=== PATIENT | male | born 1955 | race African-American/Black ===

== ENCOUNTER 2016-04-29 09:25 | Inpatient (IN) ==
--- NOTE | 2016-04-29 09:57 | Emergency Department Note ---
Disposition Clinical Impression: SOB (shortness of breath), JETHRO (acute kidney injury), Hypoxia CHF (congestive heart failure) Qualifiers: Congestive heart failure type: unspecified congestive heart failure type Congestive heart failure chronicity: acute Qualified Code(s): I50.9 - Heart failure, unspecified Pulmonary edema Qualifiers: Chronicity: acute Qualified Code(s): J81.0 - Acute pulmonary edema Disposition: Admitted As Inpatient Condition: Good Time of Disposition: 13:36 Chest Pain HPI - General Chief Complaint: ED Chest Pain Stated Complaint: chest pain Time Seen by Provider: 04/29/16 09:47 Source: patient, EMS Limitations: no limitations Vital Signs Reviewed: Yes Nursing Notes Reviewed: Yes - History of Present Illness HPI Narrative: Patient's 60-year-old male who complains of chest pain past 2-3 days. Patient has abnormal vital signs on admission of tachycardia and low O2 sat of 78% on room air. Patient's placed on 4 L which increased patient's O2 sats at 91%. Patient has a history of diabetes, kidney disease, anemia requiring multiple blood transfusions. Patient is unable to say when his last blood transfusion was. Patient states his pain is 10 out of 10 when it is severe is intermittent. Worsened with movement moving his arms speaking, and breathing. Patient states he is not in any pain right now. EMS administered 325 of aspirin , and breathing treatment 1. Severity scale (1-10): 0 - Related Data Home Medications Medication Instructions Recorded Confirmed Acetaminophen [Tylenol] 650 mg PO Q8H PRN 04/29/16 04/29/16 Ascorbic Acid [Vitamin C] 250 mg PO TID 04/29/16 04/29/16 Aspirin 81 mg PO DAILY 04/29/16 04/29/16 Atorvastatin [Lipitor] 40 mg PO HS 04/29/16 04/29/16 Dextrose [Dex4 Glucose] 15 gm PO DAILY PRN 04/29/16 04/29/16 DiphenhydraMINE [Benadryl] 50 mg PO HS PRN 04/29/16 04/29/16 Docusate Sodium [Dok] 100 mg PO BID PRN 04/29/16 04/29/16 Duloxetine [Cymbalta] 30 mg PO DAILY 04/29/16 Ergocalciferol (VITAMIN D2) 50,000 unit PO TU 04/29/16 04/29/16 [Vitamin D2] Ferrous Sulfate [Iron] 325 mg PO TID PRN 04/29/16 04/29/16 Furosemide [Lasix] 40 mg PO DAILY 04/29/16 04/29/16 Gabapentin [Neurontin] 600 mg PO TID 04/29/16 04/29/16 Hydroxyzine HCl 50 mg PO TID PRN 04/29/16 04/29/16 Insulin ASPART [NovoLOG] 20 unit SQ TID PRN 04/29/16 04/29/16 Insulin Glargine [Lantus] 55 unit SQ BID 04/29/16 04/29/16 Lisinopril [Zestril] 10 mg PO DAILY 04/29/16 04/29/16 Mineral Oil/Petrolatum,White 1 appl TP TID PRN 04/29/16 04/29/16 [Eucerin Creme] Mirtazapine [Remeron] 30 mg PO HS 04/29/16 04/29/16 Mv-Mn/FA/Vit K/Lycop/Lut/Coq10 1 each PO DAILY 04/29/16 04/29/16 [Daily Multivitamin Capsule] NIFEdipine [Afeditab Cr] 30 mg PO DAILY PRN 04/29/16 Pantoprazole Sodium [Protonix] 40 mg PO DAILY 04/29/16 04/29/16 Polyvinyl Alcohol [Artificial 1 drop BOTH EYES QID PRN 04/29/16 04/29/16 Tears] Sertraline [Zoloft] 200 mg PO DAILY 04/29/16 04/29/16 Simethicone [Gas-X] 80 mg PO QID 04/29/16 04/29/16 Sucralfate [Carafate] 1 gm PO QIDAC 04/29/16 04/29/16 Topiramate [Topamax] 50 mg PO HS PRN 04/29/16 04/29/16 Trazodone HCl 100 mg PO HS PRN 04/29/16 04/29/16 Urea [Remeven] 1 appl TP DAILY 04/29/16 04/29/16 Allergies Allergy/AdvReac Type Severity Reaction Status Date / Time No Known Allergies Allergy Verified 04/29/16 12:48 Review of Systems: Patient admits to unintentional voiding of bowels fevers, chills, anorexia, dry cough since symptoms started. All systems ED: reviewed and negative except as stated. Constitutional: Reports: fever, chills Eyes: Denies: eye pain, eye discharge ENT ED: Denies: ear pain, throat pain, congestion Cardiovascular: Reports: chest pain. Denies: palpitations, syncope Respiratory: Reports: cough, dyspnea. Denies: wheezes, sputum production Gastrointestinal: Reports: nausea. Denies: abdominal pain, vomiting Genitourinary: Denies: urgency, dysuria Musculoskeletal: Denies: back pain, neck pain Integumentary: Denies: rash, abrasion Neurological: Denies: headache, weakness Psychiatric: Denies: anxiety, visual hallucinations Endocrine: Denies: fatigue, heat or cold intolerance Hematological/Lymphatic: Denies: easy bleeding, easy bruising Allergic/Immunologic: Denies: facial swelling, urticaria Chest Pain PMH - Past Medical History Medical history: Reports: diabetes, hyperlipidemia, hypertension, renal disease , other - Social History Smoking Status: Never smoker Alcohol use: Reports: none Drug use: Reports: none Physical Exam Vital Signs Temperature 99.5 F 04/29/16 09:27 Pulse Rate 99 04/29/16 09:27 Respiratory Rate 20 04/29/16 09:27 Blood Pressure 157/88 04/29/16 09:27 O2 Sat by Pulse Oximetry 78 L 04/29/16 09:27 Temperature 99.5 F 04/29/16 09:27 Pulse Rate 99 04/29/16 09:27 Respiratory Rate 20 04/29/16 09:27 Blood Pressure 157/88 04/29/16 09:27 O2 Sat by Pulse Oximetry 92 L 04/29/16 09:33 Oxygen Delivery Oxygen Delivery Room Air -General Appearance: Patient is a 60-year-old male who weighs just over 500 pounds lying in bed alert and oriented 3 has increased work of breathing but does not appear toxic -Neurological exam: Cranial nerves II-12 intact, no focal deficits observed, - Head Head exam: atraumatic, normocephalic, normal inspection - Eye Eye exam: Present: normal appearance, PERRL, EOMI, negative for scleral icterus negative for conjunctival pallor - ENT ENT exam: normal exam, normal oropharynx, mucous membranes moist - Neck Neck exam: Present: normal inspection, full ROM, trachea midline, negative JVD - Chest Chest inspection: Present: Patient has bilateral equal rise and fall of chest wall. Non-tender to palpation. - Respiratory Respiratory exam: Clear to auscultation bilaterally without wheezes rales or rhonchi Cardiovascular Cardiovascular exam: Present: irregular rate, normal rhythm, normal heart sounds , without murmurs rubs or gallops. - Abdominal Exam Abdominal exam: Present: soft, nondistended, Non-Tender light and deep palpation in all quadrants. Bowel sounds normoactive throughout all 4 quadrants. Negative for hyper or hyperresonance. - Extremities Exam Extremities exam: Present: normal inspection, full ROM, - Back Exam Back exam: Present: normal inspection, full ROM. Absent: tenderness, CVA tenderness (R), CVA tenderness (L) - Psychiatric Psychiatric exam: Present: normal affect, normal mood - Skin Skin exam: Present: warm, dry, intact, normal color - General Limitations: no limitations General appearance: alert, in no apparent distress Course Course Narrative: Patient seen and examined. Cardiac workup initiated. D-dimer ordered. DuoNeb ordered. - Reevaluation(s) Reevaluation #1: Patient states that he feels better on oxygen versus having the breathing treatment. Patient states she has no chest pain at this time. Patient's d- dimer was elevated and ordered VQ scan Time: 10:42 Reevaluation #2: Patient was returned from V/Q secondary to exceeding the weight limit for V/Q scanner. Time: 11:48 - Consultations Consultation #1: Dr. Lambert has accepted for admission Time: 13:25 Vital Signs Temperature 99.5 F 04/29/16 09:27 Pulse Rate 99 04/29/16 09:27 Respiratory Rate 20 04/29/16 09:27 Blood Pressure 157/88 04/29/16 09:27 O2 Sat by Pulse Oximetry 78 L 04/29/16 09:27 Temperature 98.2 F 05/01/16 07:00 Pulse Rate 73 05/01/16 07:00 Respiratory Rate 20 05/01/16 10:53 Blood Pressure 168/75 05/01/16 07:00 O2 Sat by Pulse Oximetry 96 05/01/16 10:53 Oxygen Delivery Oxygen Delivery Nasal Cannula Chest Pain - [facility] Narrative Medical decision making narrative: Mr. Mccoy is an morbidly obese gentleman who is complaining of chest pain, shortness of breath, and unable to maintain O2 saturations above 90 without O2 supplementation. Patient is transferred over from the [facility] for further workup. Patient conditions were some further PE, pneumonia, ACS, CHF. Patient's chest x -ray showed bilateral pulmonary effusions. No consolidation of lower lung malagon. Patient's d-dimer was 1474. Patient is unable to have CTA chest secondary to acute kidney injury with a creatinine of 2.49. VQ scan was ordered. VQ scan was unable to be obtained secondary to patient's weight which exceeded upper limits of the weight capacity for VQ scan. Patient was administered aspirin, patient was started on heparin. Patient also anemic at 7.9 which may be exacerbated CHF and worsening shortness of breath. Patient also has a WBC of 11.2 which is very mild. Patient received DuoNeb which did not offer any benefit. Patient states that oxybutynin supplementation was more beneficial. Patient remained on 4 L via nasal cannula. Patient started on Lasix 80 mg for diuresis. Patient is admitted for further workup. Dr. Lambert accepted for admission. - Medical Records Medical records reviewed: Yes I reviewed the patient's medical records. - Lab Data Lab results reviewed: Yes I reviewed the patient's lab results. Lab results narrative: Short CBC 04/29/16 04/29/16 Range/Units 17:30 09:49 WBC 11.2 H 12.7 H (4.3-11.1) K/mcL Hgb 7.9 L 7.8 L (12.9-16.9) g/dL Hct 26.8 L 26.7 L (37.5-50.1) % Plt Count 204 205 (140-400) K/mcL Neutrophils # 9.6 H (1.6-8.9) K/mcL BMP 04/29/16 Range/Units 09:49 Sodium 139 (136-145) mEq/L Potassium 4.4 (3.5-4.5) mEq/L Chloride 104 (98-109) mEq/L Carbon Dioxide 25 (19-29) mEq/L BUN 46 H (8-26) mg/dL Creatinine 2.49 H (0.72-1.25) mg/dL Glucose 297 H (70-99) mg/dL Calcium 8.5 L (8.6-10.8) mg/dL Cardiac Enzymes 04/29/16 04/29/16 Range/Units 15:57 09:49 Troponin I 0.35 H* 0.12 H* (0-0.03) ng/mL Urine 04/29/16 Range/Units 17:22 Urine Color Yellow (Yellow) Urine Clarity Cloudy A (Clear) Urine pH 8.5 H (5.0-8.0) pH Units Ur Specific Yoder 1.020 (1.010-1.025) Urine Protein 100 H (Neg-Trace) mg/dL Urine Glucose (UA) Normal (Normal) mg/dL Result diagrams: 05/01/16 04:28 05/01/16 04:28 Lab Results 04/29/16 04/29/16 04/29/16 Range/Units 09:49 09:49 09:49 WBC 12.7 H (4.3-11.1) K/mcL RBC 3.24 L (4.19-5.50) M/mcL Hgb 7.8 L (12.9-16.9) g/dL Hct 26.7 L (37.5-50.1) % MCV 82.4 L (83.0-100.0) fL MCH 24.1 L (28.0-33.3) pg MCHC 29.2 L (31.6-35.5) g/dL RDW 15.7 H (11.5-14.5) % Plt Count 205 (140-400) K/mcL MPV 9.2 L (9.4-12.4) fL Immature Gran % 0.6 (0-4) % Seg Neutrophils % 75.6 % Lymphocytes % 16.3 % Monocytes % 7.2 % Eosinophils % 0.2 % Basophils % 0.1 % Neutrophils # 9.6 H (1.6-8.9) K/mcL Lymphocytes # 2.1 (0.6-4.6) K/mcL Monocytes # 0.9 (0.0-1.3) K/mcL Eosinophils # 0.0 (0.0-0.6) K/mcL Basophils # 0.0 (0.0-0.2) K/mcL Nucleated RBCs/100 WBC 0.3 H (0) /100 WBC D-Dimer (0-500) ng/mLFEU Sodium 139 (136-145) mEq/L Potassium 4.4 (3.5-4.5) mEq/L Chloride 104 (98-109) mEq/L Carbon Dioxide 25 (19-29) mEq/L BUN 46 H (8-26) mg/dL Creatinine 2.49 H (0.72-1.25) mg/dL Est GFR ( Amer) 32 L (> 60) Est GFR (Non-Af Amer) 27 L (> 60) BUN/Creatinine Ratio 18 (6-26) Glucose 297 H (70-99) mg/dL Calculated Osmolality 311 H (280-300) Lactic Acid (0.5-2.2) mmol/L Calcium 8.5 L (8.6-10.8) mg/dL Troponin I 0.12 H* (0-0.03) ng/mL C-Reactive Protein 177 H (Less than 5) mg/L B-Natriuretic Peptide (0-100) pg/mL 04/29/16 04/29/16 04/29/16 Range/Units 09:49 09:49 10:58 WBC (4.3-11.1) K/mcL RBC (4.19-5.50) M/mcL Hgb (12.9-16.9) g/dL Hct (37.5-50.1) % MCV (83.0-100.0) fL MCH (28.0-33.3) pg MCHC (31.6-35.5) g/dL RDW (11.5-14.5) % Plt Count (140-400) K/mcL MPV (9.4-12.4) fL Immature Gran % (0-4) % Seg Neutrophils % % Lymphocytes % % Monocytes % % Eosinophils % % Basophils % % Neutrophils # (1.6-8.9) K/mcL Lymphocytes # (0.6-4.6) K/mcL Monocytes # (0.0-1.3) K/mcL Eosinophils # (0.0-0.6) K/mcL Basophils # (0.0-0.2) K/mcL Nucleated RBCs/100 WBC (0) /100 WBC D-Dimer 1474 H (0-500) ng/mLFEU Sodium (136-145) mEq/L Potassium (3.5-4.5) mEq/L Chloride (98-109) mEq/L Carbon Dioxide (19-29) mEq/L BUN (8-26) mg/dL Creatinine (0.72-1.25) mg/dL Est GFR ( Amer) (> 60) Est GFR (Non-Af Amer) (> 60) BUN/Creatinine Ratio (6-26) Glucose (70-99) mg/dL Calculated Osmolality (280-300) Lactic Acid 0.9 (0.5-2.2) mmol/L Calcium (8.6-10.8) mg/dL Troponin I (0-0.03) ng/mL C-Reactive Protein (Less than 5) mg/L B-Natriuretic Peptide 302 H (0-100) pg/mL - Radiology Data Radiology results reviewed: Yes I reviewed the patient's radiology results. Chest X-Ray 04/29/16 09:33 IMPRESSION: Findings compatible with bilateral pulmonary edema. D/ / Robby Shrestha MD / Robby Shrestha MD Interpreting Provider: Robby Shrestha MD - EKG Data EKG attestation: Yes I reviewed and interpreted this EKG. EKG results narrative: EKG taken 1609 2016 at 0939 hours shows normal sinus rhythm and ventricular rate of [address] depression in V4. Heart Score - Score History: Moderately Suspicious EKG: Non Specific repolarisation Disturbance Age: 45-65 Risk Factors: 1-2 risk factors Troponin: Greater than 3x normal limit HEART Score Total: 6 Attestation Statement - Attestation Attestation: For this encounter, I have reviewed the resident, S[employer]IOR [employer], or PA documentation, treatment plan, and medical decision making; and I have had face to face time with this patient. 60-year-old male brought in by EMS for shortness of breath. Patient states symptoms have been increasing for the past couple days. Patient lives a sedentary lifestyle. He has been evaluated for blood clots multiple times in the past. Patient states bilateral lower extremities are more edematous over the past couple days. Patient has an elevated d-dimer and chest x-ray consistent with congestive heart failure. He has a creatinine that is elevated but is too large for our V/Q scanner. We are unable to rule out PE at this time. Patient has an elevated troponin and was started on heparin for non- STEMI. No history of recent GI bleeding. He is maintaining his saturations however I am concerned about congestive heart failure due to the mildly elevated BNP. These concerns were relayed to the hospitalist, Dr. Lambert, who agreed to accept the patient onto her care.
[2016-04-29 10:03] LABS: Basophils % 0.1 %; Eosinophils % 0.2 %; Hematocrit 26.7 % (37.5-50.1); Hemoglobin 7.8 g/dL (12.9-16.9); Immature Granulocytes % 0.6 % (0-4); Lymphocytes # 2.1 K/mcL (0.6-4.6); Lymphocytes % 16.3 %; Mean Corpuscular HGB Conc 29.2 g/dL (31.6-35.5); Mean Corpuscular Hemoglobin 24.1 pg (28.0-33.3); Mean Corpuscular Volume 82.4 fL (83.0-100.0); Mean Platelet Volume 9.2 fL (9.4-12.4); Monocytes # 0.9 K/mcL (0.0-1.3); Monocytes % 7.2 %; Neutrophils # 9.6 K/mcL (1.6-8.9); Nucleated Red Blood Cells 0.3 /100 WBC (0); Platelet Count 205 K/mcL (140-400); Red Blood Count 3.24 M/mcL (4.19-5.50); Red Cell Distribution Width 15.7 % (11.5-14.5); Segmented Neutrophils % 75.6 %
[2016-04-29] MEDS ORDERED: Ipratropium/Albuterol Neb 3 ML IH ONE (10:05)
[2016-04-29 10:33] LABS: Calcium 8.5 mg/dL (8.6-10.8); Potassium 4.4 mEq/L (3.5-4.5)
[2016-04-29] MEDS ORDERED: Furosemide 40 MG/4 ML VIAL IVP ONE (13:35)
[2016-04-29] MEDS ORDERED: *HR* Morphine 2 MG/ML SYRINGE IVP PRN (14:24)
[2016-04-29] MEDS ORDERED: Naloxone 0.4 MG/ML INJ IVP PRN (14:24)
[2016-04-29] MEDS ORDERED: D5% in Water 1,000 ML IV PRN (15:03)
[2016-04-29] MEDS ORDERED: Dextrose Gel 15 GM PO PRN ×2 (15:03)
[2016-04-29] MEDS ORDERED: *HR* Dextrose 50 % in Water (Syg) 50 ML SYRINGE IVP PRN (15:03)
[2016-04-29] MEDS ORDERED: Albuterol 2.5 MG/3 ML NEBULIZER IH PRN (15:06)
--- NOTE | 2016-04-29 15:18 | Cardiology Consult Note ---
Date of Encounter: 04/29/16 Time of Encounter: 15:15 Assessment and Plan (1) Elevated troponin I measurement Current Visit: Yes Status: Acute Per Cardiology: Initial troponin 0.12. Patient with anemia with hemoglobin and hematocrit at 7 and 26, elevated d-dimer 1400s, and creatinine of 2.49 with GFR 27. Patient reports history of anemia and CKD. BNP only noted in the 300's. Baseline numbers unknown. Patient again reports multiple transfusions throughout various hospitals. At this point suspect type II demand ischemia due to multiple medical problems. We'll continue to cycle troponins. Echocardiogram is pending. At this time if patient were to warrant further ischemic evaluation in terms of stress test or left heart catheterization, based on weight most likely would not be able to be completed at this facility. Will discuss and review Dr. Lloyd. (2) JETHRO (acute kidney injury) Current Visit: Yes Status: Acute Per Cardiology: Creatinine 2.49. Again unknown baseline. Reports history of CK D. Consider nephrology consult as well. (3) Elevated d-dimer Current Visit: Yes Status: Acute Per Cardiology: D-dimer noted to be in the 1400s. Consider PE evaluation if able. (4) Morbid obesity Current Visit: Yes Status: Acute Per Cardiology: Patient reports his weight is usually about 500 pounds. Qualifiers: Qualified Code(s): E66.01 - Morbid (severe) obesity due to excess calories (5) Anemia Current Visit: Yes Status: Acute Per Cardiology: Unspecified type of anemia. Again reports multiple hospitalizations at various locations with multiple blood transfusions. Consider hematology consult. Qualifiers: Anemia type: unspecified type Qualified Code(s): D64.9 - Anemia, unspecified Discussion w patient/family: The assessment and plan as outlined above was discussed with the patient who expressed understanding and agreement. All questions were answered. Thank you for involving us in the care of your patient. Please call with any questions. History of Present Illness Consult date: 04/29/16 Requesting physician: Chralie Lambert Consult reason: CP, Elevated Troponin Chief complaint: SOB History of present illness: Mr. Mccoy is a 60 year old -[place] male with a relevant past medical history of apparent CKD, anemia and patient reports multiple blood transfusions at various different hospitals ever few months, hypertension, hyperlipidemia, diabetes mellitus type 2, morbid obesity. Patient denies any history of CVA or coronary artery disease. Patient reports progressively worsening dyspnea on exertion and shortness of breath at rest. He reports able to walk short distances with a walker. Patient also reports intermittent chest tightness and discomfort at rest and with exertion also increase in frequency. Patient indicates came from the [facility] and that is where he is currently staying. He reports recent hospitalization in [facility] and required blood transfusion. He currently denies any active bleeding or blood loss. Denies currently receiving dialysis. Past Med Surg Social Fam HX - Past Medical History Attestation: Yes The following information was validated with the patient. Source: patient, old records reviewed, obtained from family Medical history: diabetes, hyperlipidemia, hypertension, renal disease, other - Social History Smoking Status: Never smoker Alcohol use: none Drug use: none Medications and Allergies Acetaminophen [Tylenol] 650 mg PO Q8H PRN 04/29/16 [History] Ascorbic Acid [Vitamin C] 250 mg PO TID 04/29/16 [History] Aspirin 81 mg PO DAILY 04/29/16 [History] Atorvastatin [Lipitor] 40 mg PO HS 04/29/16 [History] Dextrose [Dex4 Glucose] 15 gm PO DAILY PRN 04/29/16 [History] DiphenhydraMINE [Benadryl] 50 mg PO HS PRN 04/29/16 [History] Docusate Sodium [Dok] 100 mg PO BID PRN 04/29/16 [History] Duloxetine [Cymbalta] 30 mg PO DAILY 04/29/16 [History] Ergocalciferol (VITAMIN D2) [Vitamin D2] 50,000 unit PO TU 04/29/16 [History] Ferrous Sulfate [Iron] 325 mg PO TID PRN 04/29/16 [History] Furosemide [Lasix] 40 mg PO DAILY 04/29/16 [History] Gabapentin [Neurontin] 600 mg PO TID 04/29/16 [History] Gabapentin [Neurontin] 800 mg PO Q8H PRN 04/29/16 [History] Hydroxyzine HCl 50 mg PO TID PRN 04/29/16 [History] Insulin ASPART [NovoLOG] 20 unit SQ TID PRN 04/29/16 [History] Insulin Glargine [Lantus] 55 unit SQ BID 04/29/16 [History] Lisinopril [Zestril] 10 mg PO DAILY 04/29/16 [History] Mineral Oil/Petrolatum,White [Eucerin Creme] 1 appl TP TID PRN 04/29/16 [History ] Mirtazapine [Remeron] 30 mg PO HS 04/29/16 [History] Mv-Mn/FA/Vit K/Lycop/Lut/Coq10 [Daily Multivitamin Capsule] 1 each PO DAILY [History] NIFEdipine [Afeditab Cr] 30 mg PO DAILY PRN 04/29/16 [History] Pantoprazole Sodium [Protonix] 40 mg PO DAILY 04/29/16 [History] Polyvinyl Alcohol [Artificial Tears] 1 drop BOTH EYES QID PRN 04/29/16 [History] Sertraline [Zoloft] 200 mg PO DAILY 04/29/16 [History] Simethicone [Gas-X] 80 mg PO QID 04/29/16 [History] Sucralfate [Carafate] 1 gm PO QIDAC 04/29/16 [History] Topiramate [Topamax] 50 mg PO HS PRN 04/29/16 [History] Trazodone HCl 100 mg PO HS PRN 04/29/16 [History] Urea [Remeven] 1 appl TP DAILY 04/29/16 [History] Allergies No Known Allergies Allergy (Verified 04/29/16 12:48) All Systems Review: A 10-system review of systems was performed and is negative for pertinent findings except as documented above in the HPI. - Constitutional Constitutional: fatigue - Cardiovascular Cardiovascular: as per HPI, chest pain at rest, chest pain with exertion, dyspnea at rest, dyspnea on exertion, leg edema Physical Examination Vital Signs, Last 4 Hours Resp BP 04/29/16 14:22 20 140/104 General: Conversant, Other (Unkempt, smell of urine) HEENT: Atraumatic, Normocephaly, Mucus Membranes Moist Neck: Normal carotid pulses Cardiac: Reg Rate and Rhythm, Normal S1 and S2, No Murmur Lungs: Other (Clear anteriorly, conversational dyspnea noted) Neuro: Alert and responsive, No focal deficits noted Abdomen: Soft, Non-Tender, Other (Morbidly obese) Skin: No rashes noted on visualized skin Musculoskeletal: No Chest Wall Tenderness Extremities: Other (Generalized +2-3 nonpitting edema to bilateral lower extremities) Results 04/29/16 09:49 04/29/16 09:49 Laboratory Tests 04/29/16 04/29/16 04/29/16 09:49 09:49 09:49 Hgb 7.8 L Hct 26.7 L D-Dimer Creatinine 2.49 H Est GFR (Non-Af Amer) 27 L Troponin I 0.12 H* B-Natriuretic Peptide 04/29/16 04/29/16 09:49 09:49 Hgb Hct D-Dimer 1474 H Creatinine Est GFR (Non-Af Amer) Troponin I B-Natriuretic Peptide 302 H ITS Impressions Chest X-Ray 04/29/16 09:33 IMPRESSION: Findings compatible with bilateral pulmonary edema. D/ / Robby Shrestha MD / Robby Shrestha MD Interpreting Provider: Robby Shrestha MD Intake & Output 04/26/16 04/27/16 04/28/16 04/29/16 23:59 23:59 23:59 23:59 Weight 237.852 kg Active Medications Acetaminophen (Tylenol) 650 mg PO Q6HR PRN PRN Reason: Mild Pain (1-3) Stop: 10/29/16 14:25 Albuterol Sulfate (Proventil Neb) 2.5 mg IH Q2H PRN PRN Reason: Shortness Of Breath/Wheezing Stop: 10/29/16 15:07 Albuterol/Ipratropium (Duoneb) 3 ml IH QIDR KHANH Stop: 10/29/16 17:01 Aspirin (Aspirin) 81 mg PO DAILY KHANH Stop: 10/30/16 09:01 Atorvastatin Calcium (Lipitor) 40 mg PO HS KHANH Stop: 10/29/16 21:01 Dextrose/Water (Dextrose 50% (Syg)) 25 ml IVP AD PRN PRN Reason: Hypoglycemia Stop: 10/29/16 15:04 Docusate Sodium (Colace) 100 mg PO BID PRN; Protocol PRN Reason: Constipation Stop: 10/29/16 14:55 Ergocalciferol (Drisdol (50,000 Unit)) 50,000 unit PO TU KHANH Stop: 10/30/16 14:55 Furosemide (Lasix) 40 mg IVP BIDDIURETIC [facility] Stop: 10/30/16 09:01 Glucagon (Glucagen) 1 mg IM ONCE PRN PRN Reason: Hypoglycemia Stop: 10/29/16 15:04 Glucose (Gluctose) 15 gm PO ONCE PRN PRN Reason: Hypoglycemia Stop: 10/29/16 15:04 Glucose (Gluctose) 30 gm PO ONCE PRN PRN Reason: Hypoglycemia Stop: 10/29/16 15:04 Heparin Sodium (Porcine) (Heparin) 5,000 unit SQ Q12HR KHANH Stop: 10/29/16 18:01 Hydralazine HCl (Hydralazine) 10 mg IVP Q6HR PRN PRN Reason: Hypertension Stop: 10/29/16 14:47 Dextrose (Dextrose 5%) 1,000 mls @ 100 mls/hr IV CONT PRN PRN Reason: HYPOGLYCEMIA Stop: 10/29/16 15:04 Insulin Detemir (Levemir) 60 unit 0.25 unit/kg (60 unit) SQ HS [facility] Stop: 10/29/16 21:01 Insulin Human Lispro (Humalog) 20 units 0.08 units/kg (20 units) SQ TIDWM [facility] Stop: 10/29/16 17:01 Insulin Human Lispro (Humalog) 0 units SQ HS [facility] PRN Reason: Protocol Stop: 10/29/16 21:01 Insulin Human Lispro (Humalog) 0 units SQ TIDAC [facility] PRN Reason: Protocol Stop: 10/29/16 16:31 Isosorbide Mononitrate (Imdur) 30 mg PO DAILY [facility] Stop: 10/29/16 14:46 Lisinopril (Zestril) 20 mg PO DAILY [facility] PRN Reason: Protocol Stop: 10/30/16 09:01 Metoprolol Tartrate (Lopressor) 25 mg PO BID [facility] Stop: 10/30/16 09:01 Morphine Sulfate (Morphine Sulfate) 2 mg IVP Q4HR PRN PRN Reason: Severe Pain (7-10) Stop: 10/29/16 14:25 Naloxone HCl (Narcan) 0.4 mg IVP Q2MIN PRN PRN Reason: Opioid Reversal Stop: 10/29/16 14:25 Non-Formulary Medication (Ascorbic Acid [Vitamin C]) 250 mg PO TID [facility] Stop: 10/29/16 15:01 Non-Formulary Medication (Mirtazapine [Remeron]) 30 mg PO HS KHANH Stop: 10/29/16 21:01 Sertraline HCl (Zoloft) 200 mg PO DAILY KHANH Stop: 10/30/16 09:01 Sucralfate (Carafate) 1 gm PO QIDAC KHANH Stop: 10/29/16 16:31 - Imaging and Cardiology Chest Xray: report reviewed Echo: pending - EKG Interpretation EKG results cardiology: other (was unavailable for review) Consult Discharge Plan - Plan [facility]errals: [facility]Primary Care Provider[facility] -
--- NOTE | 2016-04-29 15:26 | Internal Med History&Physical ---
Date of Encounter: 04/29/16 Time of Encounter: 13:00 Assessment and Plan (1) Acute respiratory failure with hypoxia Current visit: Yes Status: Acute 1 patient presented to the ER with S PO2 78% on room air, with tachycardia. They are multiple contributing factors including possible emboli CHF pickwickian syndrome. Patient unable to have a CTA due to chronic kidney disease is unable to complete VQ scan due to size. We will obtain bilateral lower extremity Dopplers to rule out DVT as well as obtain echo to look for possible right-sided strain. [address] on BiPAP titrated to maintain SPO2 greater than 92% 3 we will give Lasix and nitrates to help with pulmonary edema (2) CHF exacerbation Current visit: Yes Status: Acute 1 patient denies any past cardiac history he is followed by physicians at the [facility]. We will obtain cardiac echo to evaluate EF 2 we will give Lasix as well as Isordil by we will closely monitor creatinine during Lasix use 3) monitoring of intake and output we will place Cuevas to monitor output 4 daily weights [address] patient on BiPAP and titrated to maintain SPO2 greater than 92% 7 cardiology consulted (3) Diabetes mellitus type 2 in obese Current visit: Yes Status: Acute 1 patient is type II diabetic on insulin. We will continue with Accu-Cheks before meals at bedtime we will continue with basal nutritional and correctional insulin as needed. Goal is to maintain postprandial less than 180 2 diabetic diet (4) CKD (chronic kidney disease) stage 3, GFR 30-59 ml/min Current visit: Yes Status: Acute 1 patient's creatinine is 2.49 and short baseline patient is followed by physicians at the [facility]. We will continue to monitor creatinine 2 patient is receiving Lasix for CHF exacerbation we will monitor creatinine closely while receiving increased doses 3 we will avoid nephrotoxins and NSAIDs. renal dose all antibiotics 4 monitor intake and output daily weight 5 renal diet (5) Anemia Current visit: Yes Status: Acute 1 suspect this is related to chronic disease, there is no active bleeding at this time presently hemoglobin 7.8 we will monitor and transfuse as needed. 2 anemia workup 3 stool for occult blood Qualifiers: Anemia type: unspecified type Qualified Code(s): D64.9 - Anemia, unspecified (6) Elevated d-dimer Current visit: Yes Status: Acute 1 patient's d-dimer is 1474. Patient unable to complete CTA due to chronic kidney disease unable to complete PQ due to size. We will obtain ultrasound of lower extremities to rule out DVT. We will recheck d-dimer and a.m. (7) DVT prophylaxis Current visit: Yes Status: Acute heparin subcutaneously (8) Hypertensive urgency Current visit: Yes Status: Acute 1 systolic 180 diastolic window for. Suspect related to patient not taking medication today. We will give IV Lasix will increase lisinopril 20 mg add isosorbide 30 help was diuresed we will initiate metoprolol 25 mg twice a day tomorrow. We will give hydralazine 10 mg IV when necessary for blood pressure greater than 180. Goal is to maintain blood pressure less than 160 2 low sodium diet (9) Elevated troponin I measurement Current visit: Yes Status: Acute 1 patient's first troponin was 0.12.Suspect this is related to demand ischemia We will continue to cycle cardiac troponins. If continue to be elevated. Initiate heparin drip 2we will obtain echo 3will consult cardiology 4 nitrates, aspirin, continue statin oxygen as needed to maintain SPO2. 92% 5 continuous cardiac monitoring Internal Medicine - H&P: HPI Chief complaint: SOB Admitted From: Home Plans for Post Hospital Care: Home History of present illness: Mr. Mccoy is a 60 year old male with a past medical history of diabetes hyperlipidemia hypertension CK D stage III, anemia according to the patient he has been experiencing shortness of breath on exertion as well as intermittent chest pain for the past 2-3 days. The patient does not elaborate on the pain he just states it is pain and that it comes and goes 10 over 10 when it severe resolves on its own. He states he is more concerned about the shortness of breath he is unable to do his ADLs and a he has been in bed or chair most of the day. He was brought to the emergency room for evaluation nipple presentation the patient was tachycardic with a low oxygen saturation of 78% on room air. Patient was placed on 4 L his oxygen saturation increased to 91%. First set cardiac enzymes reveal troponin of 0.12 d-dimer of 1474 BNP 302. Chest x-ray did reveal bilateral pulmonary edema his oxygen saturation did improve after applying oxygen up to 97% due to the patient's kidney disease he is unable to have a CTA and because of his size he is unable to complete a VQ scan. The patient was given an aspirin and has been admitted for further workup and evaluation. Upon assessment patient is morbidly obese poor hygiene he is asleep and is noted to have snoring and apneic respirators. He arouses to verbal stimuli appropriately follows commands he denies any chest pain or shortness of breath at this time. He states he normally goes to the [facility] for medical treatment and that he sees a kidney doctor there. He denies any past cardiac disease , CHANELL COPD or oxygen use at home. His EKG is normal sinus with nonspecific ST changes in lead 3. He is noted to have some hypertension with diastolic 100 and systolic 180. I reviewed this case with Dr. Lambert who agrees with the plan Past Med Surg Social Fam HX - Past Medical History Medical history: diabetes, hyperlipidemia, hypertension, renal disease, other - Social History Smoking Status: Never smoker Alcohol use: none Drug use: none Internal Medicine - H&P: Meds Acetaminophen [Tylenol] 650 mg PO Q8H PRN 04/29/16 [History] Ascorbic Acid [Vitamin C] 250 mg PO TID 04/29/16 [History] Aspirin 81 mg PO DAILY 04/29/16 [History] Atorvastatin [Lipitor] 40 mg PO HS 04/29/16 [History] Dextrose [Dex4 Glucose] 15 gm PO DAILY PRN 04/29/16 [History] DiphenhydraMINE [Benadryl] 50 mg PO PRN 04/29/16 [History] Docusate Sodium [Dok] 100 mg PO BID PRN 04/29/16 [History] Duloxetine [Cymbalta] 30 mg PO DAILY 04/29/16 [History] Ergocalciferol (VITAMIN D2) [Vitamin D2] 50,000 unit PO TU 04/29/16 [History] Ferrous Sulfate [Iron] 325 mg PO TID PRN 04/29/16 [History] Furosemide [Lasix] 40 mg PO DAILY 04/29/16 [History] Gabapentin [Neurontin] 600 mg PO TID 04/29/16 [History] Gabapentin [Neurontin] 800 mg PO Q8H PRN 04/29/16 [History] Hydroxyzine HCl 50 mg PO TID PRN 04/29/16 [History] Insulin ASPART [NovoLOG] 20 unit SQ TID PRN 04/29/16 [History] Insulin Glargine [Lantus] 55 unit SQ BID 04/29/16 [History] Lisinopril [Zestril] 10 mg PO DAILY 04/29/16 [History] Mineral Oil/Petrolatum,White [Eucerin Creme] 1 appl TP TID PRN 04/29/16 [History ] Mirtazapine [Remeron] 30 mg PO HS 04/29/16 [History] Mv-Mn/FA/Vit K/Lycop/Lut/Coq10 [Daily Multivitamin Capsule] 1 each PO DAILY [History] NIFEdipine [Afeditab Cr] 30 mg PO DAILY PRN 04/29/16 [History] Pantoprazole Sodium [Protonix] 40 mg PO DAILY 04/29/16 [History] Polyvinyl Alcohol [Artificial Tears] 1 drop BOTH EYES QID PRN 04/29/16 [History] Sertraline [Zoloft] 200 mg PO DAILY 04/29/16 [History] Simethicone [Gas-X] 80 mg PO QID 04/29/16 [History] Sucralfate [Carafate] 1 gm PO QIDAC 04/29/16 [History] Topiramate [Topamax] 50 mg PO HS PRN 04/29/16 [History] Trazodone HCl 100 mg PO HS PRN 04/29/16 [History] Urea [Remeven] 1 appl TP DAILY 04/29/16 [History] Allergies No Known Allergies Allergy (Verified 04/29/16 12:48) All Systems PM: A 10-system review of systems was performed and is negative for pertinent findings except as documented above in the HPI. - Constitutional Constitutional: fatigue, malaise - Cardiovascular Cardiovascular ROS IM: chest pain, dyspnea on exertion - Respiratory Respiratory: cough, dyspnea on exertion, snoring - Gastrointestinal Gastrointestinal: no abdominal pain, no diarrhea, no hematemesis, no hematochezia, no melena, no nausea, no vomiting - Musculoskeletal Musculoskeletal ROS IM: no numbness, no tingling - Neurological Neurological ROS: no confusion, no convulsions, no focal weakness, no numbness, no tingling, no tremor(s) - Constitutional Vitals: Temp Pulse Resp BP Pulse Ox 99.5 F 86 20 140/104 94 L 04/29/16 09:27 04/29/16 12:56 04/29/16 14:22 04/29/16 14:22 04/29/16 12:56 General appearance: Present: A&O X 3, morbidly obese, answers questions appropriately - Head Head exam: Present: atraumatic, normocephalic - Neck Neck exam general surgery: Present: supple, trachea midline. Absent: lymphadenopathy - Respiratory Respiratory exam: Present: decreased breath sounds, wheezes. Absent: accessory muscle use, rales, rhonchi Additional comments: Patient has decreased lung sounds throughout malagon with faint expiratory wheeze - Cardiovascular Cardiovascular exam: Present: RRR, +S1, +S2. Absent: diastolic murmur, gallop, rubs, systolic murmur - GI/Abdominal GI/Abdominal exam: Present: normal bowel sounds, soft, no peritoneal signs. Absent: distended, tenderness - Extremities Exam Extremities exam: Present: pedal edema, warm, radial pulses palpable and symetrical. Absent: calf tenderness, cyanotic Additional comments: +2 pitting edema up to knees bilaterally - Neurological Exam Neurological exam: Present: CN II-XII intact, oriented X3, no focal deficits. Absent: pronater drift, facial droop, speech deficit - Skin Skin exam: Present: dry, intact Internal Med - H&P Results - Labs CBC & Chem 7: 04/29/16 09:49 04/29/16 09:49 - EKG Data EKG shows normal: sinus rhythm Rate: normal - EKG Data Prior EKG available for review: no Interpretation IM: normal EKG EKG comments: 04/29/16 15:43 I reviewed EKG with , there are no ischemic changes noted at this time - Diagnostic Studies Chest x-ray Additional comments: Per radiology read indicative of pulmonary edema bilaterally
--- NOTE | 2016-04-29 15:57 | Event Note ---
Date of Encounter: 04/29/16 Time of Encounter: 15:56 I have independently interviewed and examined this patient. I have discussed plan of care with him he verbalizes understanding. 60 Y/O M with morbid obesity, depression, hypertension, diabetes, chronic kidney stage III, chronic anemia with frequent transfusions as per patient Patient presented with dyspnea, orthopnea, paroxysmal nocturnal dyspnea. Symptoms were worse on exertion and at rest. At the time of review, He denies chest pain, no fever or chills. In the ER patient found to be hypoxic on admission with oxygen saturation of 78% improved to 94% on 4 L of oxygen. EKG normal sinus rhythm, distant x-ray showed pulmonary edema, although lab findings include microcytic anemia, leukocytosis with left shift, elevated d- dimer was 1474; creatinine of 0.49 baseline is unknown. Troponin 0.12.BNP 302. CXR with Pulmonary edema. Due to patients body habitus and increased risk for DVT, attempt discussion patient with VQ scan proved abortive. On physical exam patient morbid obesity BMI 65, in mild respiratory distress lying flat in bed oxygen saturation 95% on 4 L of oxygen, speaks full sentences , heart sounds S1 and S2 only no murmurs gallops, diminished breath sounds bilaterally possibly due to body habitus abdomen is obese and non-tender. Bilateral lower extremity chronic venous congestion with non-pitting pitting pedal edema off to the knees. Patient will be admitted for acute hypoxic respiratory failure secondary to pulmonary edema, continue IV Lasix, continue Lisinopril, hold beta blockers for now . Hydralazine prn elevated blood pressures, add on nitrate. And restart metoprolol tomorrow morning if patient is adequately diuresed. Trend troponins , obtain echo, cardiology consult. Renal USS for CKD. Elevated troponins possibly from demand ischemia patients blood pressures ranging from 170s to 190s systolic since presentation to ER. Hypertensive urgency: resume home medications unavailable management of CHF exacerbation. Elevated d-dimer to bilateral venous Dopplers to rule out DVT. We will not anticoagulate for now. Chronic anemia type and screen and transfuse when necessary hemoglobin less than 7.8. Chronic renal insufficiency creatinine seems to be at baseline. We will monitor closely Suspected obstructive sleep apnea and obesity hypoventilation syndrome: patient will be placed on BiPAP now and at bedtime. Fall precautions, aspiration precautions Rest of details as in [employer] Kaleb documentation which I agree with.
[2016-04-29] MEDS: Ipratropium/Albuterol Neb 3 ML IH SCH ×2 (16:11→23:05)
[2016-04-29 16:21] LABS: Hemoglobin A1C 6.9 %
[2016-04-29] MEDS ORDERED: *HR* Heparin 5,000 UNIT/ML VIAL IVP PRN ×2 (17:07)
[2016-04-29] MEDS ORDERED: *HR* Heparin 5,000 UNIT/ML VIAL IVP ONE (17:07)
[2016-04-29] MEDS ORDERED: Heparin 25,000 UNIT/500 ML D5W 25,000 UNIT/500 ML MLS IVC SCH (17:15)
[2016-04-29] MEDS: Ascorbic Acid 500 MG TABLET PO SCH ×2 (17:30→21:46)
[2016-04-29] MEDS: Insulin LISPRO 300 UNITS/3 ML VIAL SQ SCH ×3 (17:30→21:45)
[2016-04-29] MEDS: Sucralfate 1 GM TABLET PO SCH ×2 (17:30→21:46)
[2016-04-29 17:35] LABS: Bilirubin,Urine Negative (Negative); Blood,Urine Trace (Negative); Clarity,Urine Cloudy (Clear); Color,Urine Yellow (Yellow); Glucose,Urine (UA) Normal (Normal); Ketones,Urine Negative (Negative); Leukocyte Esterase,Urine Large (Negative); Nitrite,Urine Negative (Negative); PH,Urine 8.5 pH Units (5.0-8.0); Protein,Urine 100 mg/dL (Neg-Trace); Urobilinogen,Urine Normal (Normal)
[2016-04-29] MEDS: Isosorbide MONOnitrate (24 HR) 30 MG TAB.ER.24H PO SCH (17:36)
[2016-04-29 17:39] LABS: Hematocrit 26.8 % (37.5-50.1); Hemoglobin 7.9 g/dL (12.9-16.9); Mean Corpuscular HGB Conc 29.5 g/dL (31.6-35.5); Mean Corpuscular Hemoglobin 24.2 pg (28.0-33.3); Mean Corpuscular Volume 82.2 fL (83.0-100.0); Mean Platelet Volume 9.2 fL (9.4-12.4); Platelet Count 204 K/mcL (140-400); Red Blood Count 3.26 M/mcL (4.19-5.50); Red Cell Distribution Width 15.9 % (11.5-14.5)
[2016-04-29 17:41] LABS: Bacteria,Urine Many per hpf (None-Few); Hyaline Casts,Urine None Seen per lpf (None-Few); RBC,Urine 0-3 per hpf (0-3); Squamous Epithelial Cell,Urine Few per lpf (None-Few); WBC,Urine 50-100 per hpf (0-3)
[2016-04-29] MEDS ORDERED: *HR* Heparin 5,000 UNIT/ML VIAL SQ SCH (18:00)
[2016-04-29 18:01] LABS: INR 1.3; Prothrombin Time 13.9 Seconds (9.4-12.1)
[2016-04-29 18:04] LABS: Activated Partial Thrombo Time 27.5 Seconds (26.0-36.0)
[2016-04-29] MEDS ORDERED: Perflutren Lipid Microsphere 1.3 ML in 0.9 % Sodium Chloride 8.7 ML IVP ONE (19:26)
[2016-04-29] MEDS: hydrOXYzine pamoate 25 MG CAPSULE PO PRN (21:46)
[2016-04-29] MEDS: Mirtazapine 15 MG TABLET PO SCH (21:46)
[2016-04-29] MEDS: Insulin DETEMIR 100 UNIT/ML X5UNITS SQ SCH (21:46)
[2016-04-30 01:18] LABS: Basophils % 0.2 %; Eosinophils # 0.1 K/mcL (0.0-0.6); Eosinophils % 1.2 %; Hematocrit 23.7 % (37.5-50.1); Immature Granulocytes % 1.4 % (0-4); Lymphocytes # 2.2 K/mcL (0.6-4.6); Lymphocytes % 20.1 %; Mean Corpuscular HGB Conc 29.5 g/dL (31.6-35.5); Mean Corpuscular Hemoglobin 24.1 pg (28.0-33.3); Mean Corpuscular Volume 81.4 fL (83.0-100.0); Neutrophils # 7.3 K/mcL (1.6-8.9); Nucleated Red Blood Cells 0.6 /100 WBC (0); Platelet Count 197 K/mcL (140-400); Red Blood Count 2.91 M/mcL (4.19-5.50); Red Cell Distribution Width 15.7 % (11.5-14.5); Segmented Neutrophils % 68.1 %
[2016-04-30 01:19] LABS: Immature Reticulocyte % 33.7 % (11.0-38.0); Retculocyte # 0.08 M/mcL (0.05-0.10)
[2016-04-30 01:29] LABS: Calcium 8.2 mg/dL (8.6-10.8); Potassium 4.2 mEq/L (3.5-4.5)
[2016-04-30 01:32] LABS: % Iron Saturation 15 % (20-55); Iron 31 mcg/dL (65-175); Transferrin 146 mg/dL (174-364)
[2016-04-30 01:53] LABS: Ferritin 460 ng/ml (22-275)
[2016-04-30 02:06] LABS: Folate 13.6 ng/mL (7.0-31.4)
[2016-04-30] MEDS: Ipratropium/Albuterol Neb 3 ML IH SCH ×4 (05:05→23:06)
--- NOTE | 2016-04-30 08:05 | Internal Med Progress Note ---
<Ariel Cr - Last Filed: 04/30/16 14:02> Date of Encounter: 04/30/16 Time of Encounter: 08:05 - Assessment and plan (1) Dyspnea Current Visit: Yes Status: Acute Assessment and plan: He states that this started 6 months ago, progressively got worse since then, even at rest, not compliant with cpap at night, likely uncontrolled CHANELL, his dyspnea is likely multifactorial from obesity hypovent syndrome, CHANELL, chronic anemia (symptomatic), and possible underlying pulm HTN, chest x-ray showed b/l pulm edema, will con't IV lasix to diurese him, echo was poor study normal EF and LV diastolic fxn, no mentioning of pulm HTN, will obtain ABG, transfuse 1 unit since hgb is less than 8 (symptomatic anemia), consult RT for bedtime BIPAP. Qualifiers: Qualified Code(s): R06.00 - Dyspnea, unspecified (2) Chronic anemia Current Visit: Yes Status: Acute Assessment and plan: Pt states that since childhood he was anemic, runs in his family, workup was done in the past as outpt, no records available, possible underlying thalassemia , he got 4 transfustions in last 4 months in different facility, EGD/ colonoscopy this year showed gastric ulcer and polyps in colon, no recent bloody /black stool, will transfuse him 1 unit for symptomatic anemia, recheck in AM. (3) CHANELL (obstructive sleep apnea) Current Visit: Yes Status: Acute Assessment and plan: Not compliant with CPAP at home, consult RT for bedtime PAP. (4) DM II (diabetes mellitus, type II), controlled Current Visit: Yes Status: Acute Assessment and plan: Recent a1c was 6.9, con't levemir and SSI. Qualifiers: Qualified Code(s): E11.9 - Type 2 diabetes mellitus without complications (5) Elevated troponin Current Visit: Yes Status: Acute Assessment and plan: Likely demand ischemia in a setting of symptomatic anemia, echo done, cardio consulted, no need further workup. (6) JETHRO (acute kidney injury) Current Visit: Yes Status: Acute Assessment and plan: Acute vs chronic, will obtain renal u/s, he is urinating fine, UA obtained, avoid nephrotoxic agent, could be pre-renal from fluid overload, con't IV lasix. (7) Morbid obesity Current Visit: Yes Status: Acute Assessment and plan: Diet and lifestyle modifications. Qualifiers: Qualified Code(s): E66.01 - Morbid (severe) obesity due to excess calories (8) DVT prophylaxis Current Visit: Yes Status: Acute Assessment and plan: IPCs. - Subjective Interval history: Pt seen and examined, he states that his SOB is somewhat improved, he is urinating fine, no chest pain, no black or bloody stools. - Constitutional Vitals: Temp Pulse Resp BP Pulse Ox 97.9 F 83 20 134/72 100 04/30/16 07:48 04/30/16 07:48 04/30/16 07:48 04/30/16 07:48 04/30/16 07:48 General appearance: Present: cooperative, A&O X 3, morbidly obese, no acute distress, answers questions appropriately - Head Head exam: Present: atraumatic, normocephalic - Eye Eye exam: Present: PERRL, conjuntiva pink, sclera anicteric Pupils: Present: PERRL - Neck Neck exam general surgery: Present: supple, trachea midline. Absent: lymphadenopathy - Respiratory Respiratory exam: Present: rales (at base b/l). Absent: accessory muscle use, rhonchi, wheezes - Cardiovascular Cardiovascular exam: Present: RRR, +S1, +S2. Absent: diastolic murmur, gallop, rubs, systolic murmur - GI/Abdominal GI/Abdominal exam: Present: normal bowel sounds, soft, no peritoneal signs. Absent: distended, tenderness - Extremities Exam Extremities exam: Present: pedal edema (moderate non-pitting b/l), warm, radial pulses palpable and symetrical. Absent: calf tenderness, cyanotic - Neurological Exam Neurological exam: Present: CN II-XII intact, oriented X3, no focal deficits. Absent: pronater drift, facial droop, speech deficit - Skin Skin exam: Present: dry, intact Internal Medicine: Result - Labs CBC & Chem 7: 04/30/16 11:40 04/30/16 01:08 Labs: Short CBC 04/29/16 04/30/16 Range/Units 17:30 01:08 WBC 11.2 H 10.8 (4.3-11.1) K/mcL Hgb 7.9 L 7.0 L (12.9-16.9) g/dL Hct 26.8 L 23.7 L (37.5-50.1) % Plt Count 204 197 (140-400) K/mcL Neutrophils # 7.3 (1.6-8.9) K/mcL BMP 04/30/16 01:08 Sodium 139 Potassium 4.2 Chloride 107 Carbon Dioxide 23 BUN 48 H Creatinine 2.46 H Glucose 197 H Calcium 8.2 L Cardiac Enzymes 04/29/16 04/30/16 Range/Units 15:57 01:08 Troponin I 0.35 H* 0.30 H* (0-0.03) ng/mL Urine 04/29/16 Range/Units 17:22 Urine Color Yellow (Yellow) Urine Clarity Cloudy A (Clear) Urine pH 8.5 H (5.0-8.0) pH Units Ur Specific Roberts 1.020 (1.010-1.025) Urine Protein 100 H (Neg-Trace) mg/dL Urine Glucose (UA) Normal (Normal) mg/dL - ABG Interpretation ABG results: PT/INR, D-dimer PT 13.9 Seconds (9.4-12.1) H 04/29/16 17:30 D-Dimer 1066 ng/mLFEU (0-500) H 04/30/16 01:08 Consult Discharge Plan - Plan Referrals: [facility] [Primary Care Provider[facility] - <Ten Nunez - Last Filed: 04/30/16 16:45> Date of Encounter: 04/30/16 - Assessment and plan (1) Acute respiratory failure with hypoxia Current Visit: Yes Status: Acute (2) CHF exacerbation Current Visit: Yes Status: Acute Qualifiers: Congestive heart failure type: diastolic Qualified Code(s): I50.33 - Acute on chronic diastolic (congestive) heart failure (3) CHANELL (obstructive sleep apnea) Current Visit: Yes Status: Acute (4) Morbid obesity Current Visit: Yes Status: Acute Qualifiers: Obesity type: due to excess calories Qualified Code(s): E66.01 - Morbid ( severe) obesity due to excess calories (5) CKD (chronic kidney disease) stage 4, GFR 15-29 ml/min Current Visit: Yes Status: Acute (6) Anemia Current Visit: Yes Status: Acute Qualifiers: Anemia type: other cause Other causes of anemia: other cause, not classified Qualified Code(s): D64.89 - Other specified anemias - Constitutional Vitals: Temp Pulse Resp BP Pulse Ox 99.6 F 79 20 145/78 97 04/30/16 15:26 04/30/16 15:26 04/30/16 15:26 04/30/16 15:26 04/30/16 15:26 Internal Medicine: Result - Labs CBC & Chem 7: 04/30/16 11:40 04/30/16 01:08 Labs: Short CBC 04/29/16 04/30/16 04/30/16 Range/Units 17:30 01:08 11:40 WBC 11.2 H 10.8 (4.3-11.1) K/mcL Hgb 7.9 L 7.0 L 7.1 L (12.9-16.9) g/dL Hct 26.8 L 23.7 L 24.5 L (37.5-50.1) % Plt Count 204 197 (140-400) K/mcL Neutrophils # 7.3 (1.6-8.9) K/mcL BMP 04/30/16 01:08 Sodium 139 Potassium 4.2 Chloride 107 Carbon Dioxide 23 BUN 48 H Creatinine 2.46 H Glucose 197 H Calcium 8.2 L Cardiac Enzymes 04/30/16 Range/Units 01:08 Troponin I 0.30 H* (0-0.03) ng/mL Urine 04/29/16 Range/Units 17:22 Urine Color Yellow (Yellow) Urine Clarity Cloudy A (Clear) Urine pH 8.5 H (5.0-8.0) pH Units Ur Specific Roberts 1.020 (1.010-1.025) Urine Protein 100 H (Neg-Trace) mg/dL Urine Glucose (UA) Normal (Normal) mg/dL - ABG Interpretation ABG results: PT/INR, D-dimer PT 13.9 Seconds (9.4-12.1) H 04/29/16 17:30 D-Dimer 1066 ng/mLFEU (0-500) H 04/30/16 01:08 - Impressions Impressions Retroperitoneum Ultrasound 04/30/16 13:00 IMPRESSION: Unremarkable ultrasound of the kidneys and urinary bladder. D/ / Nithin Lemus MD / Nithin Lemus MD Interpreting Provider: Nithin Lemus MD - Attending Attestation I examined this patient and my medical decision-making was reviewed with the Resident Physician on 04/30/16. I agree with the documented findings, disposition and treatment plan as described except to the extent set forth below. Mr. Mccoy is currently admitted for acute hypoxic respiratory failure due to CHANELL, probable CHF (diastolic). He remains high risk due to potential of worsening respiratory status and failure. Mr. Mccoy feels he is breathing somewhat better. He did not wear bipap last night. He says he has CPAP at home but no oxygen though he feels he needs it. No pain. Venous ultrasound negative for DVT. H/H dropped. Heparin stopped. Exam Alert and pleasant Mucus membranes moist Heart distant and regular Lungs diminished - no wheeze Abd soft Current labs reviewed I/P 1. Acute hypoxic resp failure - multifactorial. Bipap ordered. Continue diuresis. 2. Acute exac chronic diastolic CHF - Will continue to diurese. 3. CKD 4 4. CHANELL 5. Morbid obesity Further diagnoses and plan as above.
--- NOTE | 2016-04-30 08:39 | Cardiology Progress Note ---
Date of Encounter: 04/30/16 Time of Encounter: 08:40 Assessment and Plan (1) SOB (shortness of breath) Current Visit: Yes Status: Acute Per Cardiology: Suspect multifactorial. Clinically improved with IV Lasix. On 40 mg IV twice a day. According to medical records I&O net negative 1133ml. (2) Elevated troponin I measurement Current Visit: Yes Status: Acute Per Cardiology: Initial troponin 0.12, 0.35, 0.30. Patient with anemia with hemoglobin and hematocrit at 7 and 26, elevated d-dimer 1400s, and apparent CKD IV. Patient reports history of anemia and CKD. Baseline numbers unknown. BNP only noted in the 300's. Patient again reports multiple transfusions throughout various hospitals. At this point suspect type II demand ischemia due to multiple medical problems. No Cardiac Rehab consult warranted. Echo shows EF preserved at 60%, mild LVH, normal left ventricular diastolic function, right ventricle grossly normal in size and function, no significant valvular dysfunction, no segmental wall motion abnormalities. No further cardiac testing recommended at this time. If patient were to warrant further ischemic evaluation in terms of stress test or left heart catheterization, based on weight, most likely would not be able to be completed at this facility. On aspirin, statin, beta bebe, long-acting nitrate. (3) Elevated d-dimer Current Visit: Yes Status: Acute Per Cardiology: D-dimer noted to be in the 1400s. PE cannot be excluded, however unable to complete scans. Prelim VD - for bilateral DVT. (4) Anemia Current Visit: Yes Status: Acute Per Cardiology: Unspecified type of anemia. Again reports multiple hospitalizations at various locations with multiple blood transfusions. H&H 7 & 23.7. Consider transfusion. Consider hematology consult. Qualifiers: Anemia type: unspecified type Qualified Code(s): D64.9 - Anemia, unspecified (5) JETHRO (acute kidney injury) Current Visit: Yes Status: Acute Per Cardiology: Appears to have CKDIV, again unknown baseline. Reports history of CKD. Consider nephrology consult as well. (6) Morbid obesity Current Visit: Yes Status: Acute Per Cardiology: Patient reports his weight is usually about 500 pounds. Qualifiers: Qualified Code(s): E66.01 - Morbid (severe) obesity due to excess calories Discussion w patient/family: The assessment and plan as outlined above was discussed with the patient who expressed understanding and agreement. All questions were answered. Thank you for involving us in the care of your patient. Please call with any questions. Subjective Principal diagnosis: SOB Interval history: Patient reports history of breath has improved. Reports urinating frequently. He denies any chest pain or palpitations. Denies any awareness of any active bleeding or blood loss. Objective Vital Signs, Last 4 Hours Temp Pulse Resp BP Pulse Ox 04/30/16 07:48 97.9 F 83 20 134/72 100 04/30/16 05:05 16 95 General: Conversant HEENT: Atraumatic, Normocephaly Cardiac: Reg Rate and Rhythm, Normal S1 and S2, No Murmur Lungs: Normal Breath Sounds, Other (Clear to all lobes anteriorly) Neuro: Alert and responsive, No focal deficits noted Abdomen: Other (obese) Extremities: Other (+2-3 nonpitting bilateral LE) Results 04/30/16 01:08 04/30/16 01:08 Lab Results Laboratory Tests 04/29/16 04/29/16 04/29/16 09:49 15:57 17:22 Hgb Hct Troponin I 0.12 H* 0.35 H* Urine Clarity Cloudy A Urine Blood Trace H Ur Leukocyte Esterase Large H Ur Squamous Epith Cells Few Urine Bacteria Many H 04/30/16 04/30/16 01:08 01:08 Hgb 7.0 L Hct 23.7 L Troponin I 0.30 H* Urine Clarity Urine Blood Ur Leukocyte Esterase Ur Squamous Epith Cells Urine Bacteria Impressions Chest X-Ray 04/29/16 09:33 IMPRESSION: Findings compatible with bilateral pulmonary edema. D/ / Robby Shrestha MD / Robby Shrestha MD Interpreting Provider: Robby Shrestha MD Intake & Output 04/27/16 04/28/16 04/29/16 04/30/16 23:59 23:59 23:59 23:59 Intake Total 0 / 0 667 / 667 Output Total 600 / 600 1200 / 1200 Balance -600 / -600 -533 / -533 Weight 237.852 kg 239.7 kg Active Medications Acetaminophen (Tylenol) 650 mg PO Q6HR PRN PRN Reason: Mild Pain (1-3) Stop: 10/29/16 14:25 Albuterol Sulfate (Proventil Neb) 2.5 mg IH Q2H PRN PRN Reason: Shortness Of Breath/Wheezing Stop: 10/29/16 15:07 Albuterol/Ipratropium (Duoneb) 3 ml IH QIDR KHANH Stop: 10/29/16 17:01 Last Admin: 04/30/16 05:05 Dose: 3 ml Ascorbic Acid (Vitamin C) 250 mg PO TID KHANH Stop: 10/29/16 15:01 Last Admin: 04/29/16 21:46 Dose: 250 mg Aspirin (Aspirin) 81 mg PO DAILY [facility] Stop: 10/30/16 09:01 Atorvastatin Calcium (Lipitor) 40 mg PO HS [facility] Stop: 10/29/16 21:01 Last Admin: 04/29/16 21:46 Dose: 40 mg Dextrose/Water (Dextrose 50% (Syg)) 25 ml IVP AD PRN PRN Reason: Hypoglycemia Stop: 10/29/16 15:04 Docusate Sodium (Colace) 100 mg PO BID PRN; Protocol PRN Reason: Constipation Stop: 10/29/16 14:55 Ergocalciferol (Drisdol (50,000 Unit)) 50,000 unit PO TU [facility] Stop: 10/30/16 14:55 Furosemide (Lasix) 40 mg IVP BIDDIURETIC KHANH Stop: 10/30/16 09:01 Glucagon (Glucagen) 1 mg IM ONCE PRN PRN Reason: Hypoglycemia Stop: 10/29/16 15:04 Glucose (Gluctose) 15 gm PO ONCE PRN PRN Reason: Hypoglycemia Stop: 10/29/16 15:04 Glucose (Gluctose) 30 gm PO ONCE PRN PRN Reason: Hypoglycemia Stop: 10/29/16 15:04 Hydralazine HCl (Hydralazine) 10 mg IVP Q6HR PRN PRN Reason: Hypertension Stop: 10/29/16 14:47 Hydroxyzine Pamoate (Hydroxyzine Pamoate) 50 mg PO TID PRN PRN Reason: Anxiety Last Admin: 04/29/16 21:46 Dose: 50 mg Dextrose (Dextrose 5%) 1,000 mls @ 100 mls/hr IV CONT PRN PRN Reason: HYPOGLYCEMIA Stop: 10/29/16 15:04 Insulin Detemir (Levemir) 60 unit 0.25 unit/kg (60 unit) SQ HS [facility] Stop: 10/29/16 21:01 Last Admin: 04/29/16 21:46 Dose: 60 unit Insulin Human Lispro (Humalog) 20 units 0.08 units/kg (20 units) SQ TIDWM [facility] Stop: 10/29/16 17:01 Last Admin: 04/29/16 17:30 Dose: 20 units Insulin Human Lispro (Humalog) 0 units SQ HS [facility] PRN Reason: Protocol Stop: 10/29/16 21:01 Last Admin: 04/29/16 21:45 Dose: 2 units Insulin Human Lispro (Humalog) 0 units SQ TIDAC [facility] PRN Reason: Protocol Stop: 10/29/16 16:31 Last Admin: 04/29/16 17:31 Dose: 6 units Isosorbide Mononitrate (Imdur) 30 mg PO DAILY [facility] Stop: 10/29/16 14:46 Last Admin: 04/29/16 17:36 Dose: 30 mg Metoprolol Tartrate (Lopressor) 25 mg PO BID [facility] Stop: 10/30/16 09:01 Mirtazapine (Remeron) 30 mg PO HS [facility] Stop: 10/29/16 21:01 Last Admin: 04/29/16 21:46 Dose: 30 mg Morphine Sulfate (Morphine Sulfate) 2 mg IVP Q4HR PRN PRN Reason: Severe Pain (7-10) Stop: 10/29/16 14:25 Naloxone HCl (Narcan) 0.4 mg IVP Q2MIN PRN PRN Reason: Opioid Reversal Stop: 10/29/16 14:25 Sertraline HCl (Zoloft) 200 mg PO DAILY [facility] Stop: 10/30/16 09:01 Sucralfate (Carafate) 1 gm PO QIDAC [facility] Stop: 10/29/16 16:31 Last Admin: 04/29/16 21:46 Dose: 1 gm - Imaging and Cardiology Echo: report reviewed - EKG Interpretation EKG results cardiology: other (24 hour telemetry reviewed with average heart rate 85, sinus rhythm, no events noted) Consult Discharge Plan - Plan [facility]errals: [facility] [Primary Care Provider] -
[2016-04-30] MEDS: Furosemide 40 MG/4 ML VIAL IVP SCH ×2 (09:32→17:49)
[2016-04-30] MEDS: Isosorbide MONOnitrate (24 HR) 30 MG TAB.ER.24H PO SCH (09:32)
[2016-04-30] MEDS: Ascorbic Acid 500 MG TABLET PO SCH ×3 (09:33→21:46)
[2016-04-30] MEDS: Aspirin 81 MG TAB.CHEW PO SCH (09:33)
[2016-04-30] MEDS: Sucralfate 1 GM TABLET PO SCH ×4 (09:34→21:45)
[2016-04-30] MEDS: Insulin LISPRO 300 UNITS/3 ML VIAL SQ SCH ×7 (09:34→21:38)
--- NOTE | 2016-04-30 10:01 | ECHO - Doppler Report ---
Echo with Imaging Enhancement Agent Name: Manpreet Mccoy Date of Study: 04/29/2016 Date: 1955 Ht: Medical Record#: [id number] Age: 60 Wt: 524.0 lb Gender: Male BSA: Order #: [id number] Location: [facility] Room #: 2NE16 Reading Physician: Keith Muhammad MD, [facility] Laborer Vegetable Farm: Jessica Jay Ordering Physician: Ivana Shepard CNP Primary Physician: [facility] Indications: Shortness of breath, Chest pain Impressions: Technically sub-optimal due to body habitus. Echo contrast was used. Mildly dilated left ventricle. Normal left ventricular systolic function, LVEF 60%. Atypical septal motion consistent with bundle branch block. Mild concentric left ventricular hypertrophy. Normal left ventricular diastolic function. Right ventricle was not well visualized. Appears grossly normal in size and function. No significant valvular dysfunction. Unable to estimate RVSP due to lack of TR jet. Left Ventricular Wall Motion: Rest Echo Findings All wall segments showed normal motion. Findings: Study Quality * Technically sub-optimal due to body habitus. Echo contrast was used. ECG Findings * Normal sinus rhythm. Left Ventricle * Mildly dilated left ventricle. * Normal left ventricular systolic function, LVEF 60%. * Atypical septal motion consistent with bundle branch block. * Mild concentric left ventricular hypertrophy. * Normal left ventricular diastolic function. Right Ventricle * Right ventricle was not well visualized. Appears grossly normal in size and function. Left Atrium * Normal left atrial size. Right Atrium * Normal right atrial size. Aorta * Normally sized aortic root. Pericardium * There is no pericardial effusion present. Aortic Valve * Trileaflet aortic valve. * Mildly sclerotic aortic valve leaflets. * No aortic stenosis. * No aortic regurgitation. Mitral Valve * Normal mitral valve structure. * No mitral stenosis. * Trace mitral regurgitation. Tricuspid Valve * Normal tricuspid valve structure. * No tricuspid stenosis. * Trace tricuspid regurgitation. * Unable to estimate RVSP due to lack of TR jet. Pulmonic Valve * Pulmonic valve not well visualized. * No pulmonic stenosis. * No pulmonic regurgitation. History Hypertension Diabetes Contrast: Definity 1.3 ml in 8.7 ml of saline 2 ml. Measurements: BP: 146/ 91 2D Normal Values IVSd: 1.20 cm 0.6 - 1.0 cm LVIDd: 6.10 cm 3.7 - 5.6 cm LVPWd: 1.20 cm 0.6 - 1.1 cm LVIDs: 3.70 cm 1.5 - 3.6 cm AO: 3.40 cm < 4.0 cm LA volume: 78 Updated by Keith Muhammad MD, [facility] on 04/30/2016 9:55:30 AM electronically signed on 04/30/2016 9:56:42 AM with status of Final Wall Motion Holden: 1=Normal, 2=Hypokinesis, 3=Akinesis, 4=Dyskinesis, 5=Aneurysmal, 6=Hyperkinetic, X=Not Visualized (Blank)=Missing
[2016-04-30 11:49] LABS: Hematocrit 24.5 % (37.5-50.1); Hemoglobin 7.1 g/dL (12.9-16.9)
--- NOTE | 2016-04-30 14:32 | Venous Imaging Report ---
LE Venous Duplex Patient Name:Manpreet Mccoy Order Number:[id number] Procedure Date:04/29/2016 Date:1955ge:60 yrs Gender:Male Location:[facility] Room #: 2NE16 Vacuum Furnace Operator:Jessica Jay Referring MD:Ivana Shepard CNP ceramic worker:[facility] Reading MD:Ariel Owens MD Primary Indications:r/o DVT Secondary Indications: Impressions: Normal bilateral lower extremity deep and superficial venous exam. Findings Venous Duplex Results: Right: Venous imaging of the lower extremity reveals full patency and normal vessel compressibility of the right distal iliac, right superficial femoral, right posterior tibial and right peroneal. Doppler signals in the evaluated veins were normal. The right distal iliac, right superficial femoral, right posterior tibial and right peroneal veins were not well visualized. Left: Venous imaging of the lower extremity reveals full patency and normal vessel compressibility of the left distal iliac, left superficial femoral, left posterior tibial and left peroneal. Doppler signals in the evaluated veins were normal. The left distal iliac, left superficial femoral, left posterior tibial and left peroneal veins were not well visualized. Prior Study: No prior study available for comparison. Lower Extremity Venous Duplex Side Vein Compress Spontaneous Flow Augment Diameter (cm) Depth (cm) Right Distal Iliac Normal Yes Phasic Yes Right Common Femoral Normal Yes Phasic Yes Right Superficial Femoral Normal Yes Phasic Yes Right Popliteal Normal Yes Phasic Yes Right Posterior Tibial Normal Yes Phasic Yes Right Peroneal Normal Yes Phasic Yes Right Saphenofemoral Junction Normal Yes Phasic Yes Right Great Saphenous Normal Yes Phasic Yes Right Lesser Saphenous Normal Yes Phasic Yes Left Distal Iliac Normal Yes Phasic Yes Left Common Femoral Normal Yes Phasic Yes Left Superficial Femoral Normal Yes Phasic Yes Left Popliteal Normal Yes Phasic Yes Left Posterior Tibial Normal Yes Phasic Yes Left Peroneal Normal Yes Phasic Yes Left Saphenofemoral [place]unction Normal Yes Phasic Yes Left Great Saphenous Normal Yes Phasic Yes Left Lesser Saphenous Normal Yes Phasic Yes Updated by Ariel Owens MD on 04/30/2016 2:25:59 PM electronically signed on 04/30/2016 2:27:29 PM with status of Final
--- NOTE | 2016-04-30 17:06 | Electrocardiograph Report ---
[facility] Test Date: 2016-04-29 Pat Name: Manpreet Mccoy Department: 104 Room: 2NE16 Gender: M Merchandise Carrier: DAYAN : 1955 Requested By: Sachin Paz Order Number: [id number] Reading MD: Maria Esther Tijerina Measurements Intervals [place] Rate: 96 P: 30 IA: 173 QRS: 68 QRSD: 95 T: -29 QT: 374 QTc: 428 Interpretive Statements SINUS RHYTHM NONSPECIFIC T-WAVE ABNORMALITY Electronically Signed On 04-30-16 17:04:48 EST by Maria Esther Tijerina
[2016-04-30] MEDS ORDERED: 0.9 % Sodium Chloride 250 ML ONE (17:42)
[2016-04-30] MEDS: hydrOXYzine pamoate 25 MG CAPSULE PO PRN (18:47)
[2016-04-30] MEDS: Acetaminophen 325 MG TABLET PO PRN (18:47)
[2016-04-30 19:29] LABS: VBG HCO3 34.5 mEq/L (21-27); VBG PH 7.34 pH Units (7.32-7.42)
[2016-04-30] MEDS: Mirtazapine 15 MG TABLET PO SCH (21:45)
[2016-04-30] MEDS: Insulin DETEMIR 100 UNIT/ML X5UNITS SQ SCH (21:49)
--- NOTE | 2016-05-01 02:06 | Event Note ---
<Barrett Becerra - Last Filed: 05/01/16 02:03> Date of Encounter: 05/01/16 Time of Encounter: 01:30 Patient's IV in his left arm had gone bad and he refused a new IV. I went and talked to the patient and educated him on the importance of IV access, and he then agreed to have a new IV placed. At 1:29 am, I was told by RN that patient was refusing his 1am troponin blood draw. Patient refuses because he does not want to feel pain in his arm. He will likely refuse his morning labs as well. If patient's IV access keeps going bad, he may benefit from a power glide. <Delvin Navarro - Last Filed: 05/01/16 02:17> Date of Encounter: 05/01/[address] Becerra and agree.
[2016-05-01] MEDS: Ipratropium/Albuterol Neb 3 ML IH SCH ×4 (05:02→22:53)
[2016-05-01 05:25] LABS: Basophils % 0.2 %; Hematocrit 26.3 % (37.5-50.1); Hemoglobin 7.6 g/dL (12.9-16.9); Mean Corpuscular HGB Conc 28.9 g/dL (31.6-35.5); Monocytes % 7.4 %
[2016-05-01 05:26] LABS: Eosinophils # 0.2 K/mcL (0.0-0.6); Eosinophils % 2.5 %; Immature Granulocytes % 0.6 % (0-4); Lymphocytes % 21.3 %; Mean Corpuscular Hemoglobin 24.1 pg (28.0-33.3); Mean Corpuscular Volume 83.2 fL (83.0-100.0); Mean Platelet Volume 10.5 fL (9.4-12.4); Monocytes # 0.7 K/mcL (0.0-1.3); Neutrophils # 6.4 K/mcL (1.6-8.9); Nucleated Red Blood Cells 0.3 /100 WBC (0); Platelet Count 227 K/mcL (140-400); Red Blood Count 3.16 M/mcL (4.19-5.50); Red Cell Distribution Width 15.5 % (11.5-14.5)
[2016-05-01 05:30] LABS: Calcium 8.8 mg/dL (8.6-10.8); Potassium 4.1 mEq/L (3.5-4.5)
[2016-05-01] MEDS: Aspirin 81 MG TAB.CHEW PO SCH (09:30)
[2016-05-01] MEDS: Isosorbide MONOnitrate (24 HR) 30 MG TAB.ER.24H PO SCH (09:30)
[2016-05-01] MEDS: Sucralfate 1 GM TABLET PO SCH ×4 (09:30→22:04)
[2016-05-01] MEDS: Ascorbic Acid 500 MG TABLET PO SCH ×3 (09:30→22:04)
[2016-05-01] MEDS: Insulin LISPRO 300 UNITS/3 ML VIAL SQ SCH ×6 (09:30→17:02)
[2016-05-01] MEDS: hydrOXYzine pamoate 25 MG CAPSULE PO PRN (10:06)
[2016-05-01] MEDS: Acetaminophen 325 MG TABLET PO PRN (10:06)
--- NOTE | 2016-05-01 10:16 | Discharge Summary ---
<Ariel Cr - Last Filed: 05/01/16 11:39> Date of Encounter: 05/01/16 Time of Encounter: 10:09 - Discharge Diagnosis (1) Dyspnea Priority: Primary Status: Acute Qualifiers: Qualified Code(s): R06.00 - Dyspnea, unspecified (2) Chronic anemia Priority: Secondary Status: Acute (3) CHANELL (obstructive sleep apnea) Priority: Secondary Status: Acute (4) DM II (diabetes mellitus, type II), controlled Priority: Secondary Status: Acute Qualifiers: Qualified Code(s): E11.9 - Type 2 diabetes mellitus without complications (5) Elevated troponin Priority: Secondary Status: Acute (6) JETHRO (acute kidney injury) Priority: Secondary Status: Acute (7) Morbid obesity Priority: Secondary Status: Acute Qualifiers: Obesity type: due to excess calories Qualified Code(s): E66.01 - Morbid ( severe) obesity due to excess calories (8) DVT prophylaxis Priority: Secondary Status: Acute - Discharge Medications Prescriptions: Ciprofloxacin HCl [Cipro] 250 mg PO DAILY #4 tablet Home Medications: Acetaminophen [Tylenol] 650 mg PO Q8H PRN 04/29/16 [History] Ascorbic Acid [Vitamin C] 250 mg PO TID 04/29/16 [History] Aspirin 81 mg PO DAILY 04/29/16 [History] Atorvastatin [Lipitor] 40 mg PO HS 04/29/16 [History] Dextrose [Dex4 Glucose] 15 gm PO DAILY PRN 04/29/16 [History] DiphenhydraMINE [Benadryl] 50 mg PO HS PRN 04/29/16 [History] Docusate Sodium [Dok] 100 mg PO BID PRN 04/29/16 [History] Duloxetine [Cymbalta] 30 mg PO DAILY 04/29/16 [History] Ergocalciferol (VITAMIN D2) [Vitamin D2] 50,000 unit PO TU 04/29/16 [History] Ferrous Sulfate [Iron] 325 mg PO TID PRN 04/29/16 [History] Furosemide [Lasix] 40 mg PO DAILY 04/29/16 [History] Gabapentin [Neurontin] 600 mg PO TID 04/29/16 [History] Hydroxyzine HCl 50 mg PO TID PRN 04/29/16 [History] Insulin ASPART [NovoLOG] 20 unit SQ TID PRN 04/29/16 [History] Insulin Glargine [Lantus] 55 unit SQ BID 04/29/16 [History] Lisinopril [Zestril] 10 mg PO DAILY 04/29/16 [History] Mineral Oil/Petrolatum,White [Eucerin Creme] 1 appl TP TID PRN 04/29/16 [History ] Mirtazapine [Remeron] 30 mg PO HS 04/29/16 [History] Mv-Mn/FA/Vit K/Lycop/Lut/Coq10 [Daily Multivitamin Capsule] 1 each PO DAILY [History] NIFEdipine [Afeditab Cr] 30 mg PO DAILY PRN 04/29/16 [History] Pantoprazole Sodium [Protonix] 40 mg PO DAILY 04/29/16 [History] Polyvinyl Alcohol [Artificial Tears] 1 drop BOTH EYES QID PRN 04/29/16 [History] Sertraline [Zoloft] 200 mg PO DAILY 04/29/16 [History] Simethicone [Gas-X] 80 mg PO QID 04/29/16 [History] Sucralfate [Carafate] 1 gm PO QIDAC 04/29/16 [History] Topiramate [Topamax] 50 mg PO HS PRN 04/29/16 [History] Trazodone HCl 100 mg PO HS PRN 04/29/16 [History] Urea [Remeven] 1 appl TP DAILY 04/29/16 [History] Ciprofloxacin HCl [Cipro] 250 mg PO DAILY #4 tablet 05/01/16 [Rx] Allergies/Adverse Reactions: Allergies No Known Allergies Allergy (Verified 04/29/16 12:48) Procedures/tests Complete & Pending: Procedures Performed prior 72 hours Category Date Time Status Retroperitoneal Ultrasound - Complete [US Exams 04/30/16 13:00 Completed retroperitoneal comp] [US] Routine EV echocardiogram w enhance Routine Y 04/29/16 16:33 Completed Venous Doppler [EV venous imaging LE BI] Stat Y 04/29/16 15:14 Completed Date of admission: 04/29/16 13:43 [facility] care physician: [facility] Consults: 04/29/16 14:48 Consult to Cardiology [CONS] Routine Comment: Consulting Provider: Card[facility] [place] Reason for Consult: elevated troponin Time Notified: 14:53 Call Completed: Yes 04/29/16 17:28 Consult to Turning Machine Operator Helper [CONS] Routine Reason for SW Consult: [facility] Discharging clinician: Ariel Cr Anticipated date of discharge: 05/01/16 - Patient Status Disposition: Transfer LTC Condition: Good Functional capacity at discharge: uses cane/walker (up with assistance, fall precaution) Overall status at discharge: patient is progressing back to baseline - Discharge Instructions Follow Up With: [facility] [Primary Care Provider] - (F/u w/in a week for hospital d/c f/u, uncontrolled CHANELL, he needs to be compliant with CPAP at night, chronic anemia, nephrology referral for CKD III/IV, HTN, DM II) - Diet and Activity Activity: resume usual activities as tolerated Diet: diabetic diet, low fat, low cholesterol, low salt diet Hospital course: Mr. 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 Chest x-ray showed pulm edema, started on IV lasix therapy, cardio consulted, echo reviewed , normal EF but poor study, he also came in with JETHRO vs CKD III, with diuresis therapy, renal fxn and his respiratory status improved, he also has hx of chronic anemia since a childhood, baseline hgb is around 8, he received 1 unit this time and hgb improved and that also clinically helped him breathing. Today he felt much better therefore he will return to [place] in stable question. - Time Spent with Patient Total time spent providing and/or coordinating discharge services: - Constitutional Vitals: Temp Pulse Resp BP Pulse Ox 98.2 F 73 20 168/75 96 05/01/16 07:00 05/01/16 07:00 05/01/16 07:00 05/01/16 07:00 05/01/16 07:00 General appearance: Present: cooperative, A&O X 3, morbidly obese, no acute distress, answers questions appropriately - Head Head exam: Present: atraumatic, normocephalic - Eye Eye exam: Present: PERRL, conjuntiva pink, sclera anicteric Pupils: Present: PERRL - Neck Neck exam general surgery: Present: supple, trachea midline. Absent: lymphadenopathy - Respiratory Respiratory exam: Present: CTAB. Absent: accessory muscle use, rhonchi, wheezes - Cardiovascular Cardiovascular exam: Present: RRR, +S1, +S2. Absent: diastolic murmur, gallop, rubs, systolic murmur - GI/Abdominal GI/Abdominal exam: Present: normal bowel sounds, soft, no peritoneal signs. Absent: distended, tenderness - Extremities Exam Extremities exam: Present: pedal edema (moderate non-pitting b/l, chronic), warm , radial pulses palpable and symetrical. Absent: calf tenderness, cyanotic - Neurological Exam Neurological exam: Present: CN II-XII intact, oriented X3, no focal deficits. Absent: pronater drift, facial droop, speech deficit - Skin Skin exam: Present: dry, intact - VTE Documentation of Mechanical Device: Graduated compression elastic hosiery <Ten Nunez - Last Filed: 05/01/16 14:41> Date of Encounter: 05/01/16 - Discharge Diagnosis (1) Acute respiratory failure with hypoxia Priority: Primary Status: Acute (2) CHF exacerbation Priority: Secondary Status: Acute Qualifiers: Congestive heart failure type: diastolic Qualified Code(s): I50.33 - Acute on chronic diastolic (congestive) heart failure (3) CHANELL (obstructive sleep apnea) Status: Acute (4) Morbid obesity Status: Acute Qualifiers: Obesity type: due to excess calories Qualified Code(s): E66.01 - Morbid ( severe) obesity due to excess calories (5) CKD (chronic kidney disease) stage 4, GFR 15-29 ml/min Priority: Secondary Status: Chronic (6) Anemia Priority: Secondary Status: Chronic Qualifiers: Anemia type: other cause Other causes of anemia: other cause, not classified Qualified Code(s): D64.89 - Other specified anemias (7) Bacteriuria with pyuria Priority: Secondary Status: Acute Comments: Add abx at discharge - Cipro for 5 days Procedures/tests Complete & Pending: Procedures Performed prior 72 hours Category Date Time Status Retroperitoneal Ultrasound - Complete [US Exams 04/30/16 13:00 Completed retroperitoneal comp] [US] Routine EV echocardiogram w enhance Routine Y 04/29/16 16:33 Completed Venous Doppler [EV venous imaging LE BI] Stat Y 04/29/16 15:14 Completed Date of admission: 04/29/16 13:43 Primary care physician: [facility] Consults: 04/29/16 14:48 Consult to Cardiology [CONS] Routine Comment: Consulting Provider: Cardiology [facility] Reason for Consult: elevated troponin Time Notified: 14:53 Call Completed: Yes 04/29/16 17:28 Consult to Turning Machine Operator Helper [CONS] Routine Reason for SW Consult: FROM [facility] Hospital course: Mr. Mccoy is a 60 year old male - Time Spent with Patient Total time spent providing and/or coordinating discharge services: 40min - Constitutional Vitals: Temp Pulse Resp BP Pulse Ox 98.2 F 73 20 168/75 96 05/01/16 07:00 05/01/16 07:00 05/01/16 10:53 05/01/16 07:00 05/01/16 10:53 - Attending Attestation I examined this patient and my medical decision-making was reviewed with the Resident Physician on 05/01/16. I agree with the documented findings, disposition and treatment plan as described except to the extent set forth below. Mr. Mcocy is feeling better and at baseline. No new issues overnight. Received one unit PRBCs and feels better Exam Alert. Comfortable Heart reg Lungs diminished but clear Plan D/C today. Urinalysis shows pyuria - no culture at this time. Will treat short term with Cipro.
--- NOTE | 2016-05-01 10:20 | Physician Discharge Referral ---
<Ariel Cr - Last Filed: 05/01/16 10:19> [facility] Referral Info Transfer To: LTC Provider in Charge: Dr. Nunez Provider in Charge after Transfer: PCP Institutional Level of Care: Skilled - Diagnosis (1) Dyspnea Priority: Primary Status: Acute (2) Chronic anemia Status: Acute (3) CHANELL (obstructive sleep apnea) Status: Acute (4) DM II (diabetes mellitus, type II), controlled Status: Acute (5) Elevated troponin Status: Acute (6) JETHRO (acute kidney injury) Status: Acute (7) Morbid obesity Status: Acute (8) DVT prophylaxis Status: Acute - Transfer Medications Prescriptions: Ciprofloxacin HCl [Cipro] 250 mg PO DAILY #4 tablet Home Medications: Acetaminophen [Tylenol] 650 mg PO Q8H PRN 04/29/16 [History] Ascorbic Acid [Vitamin C] 250 mg PO TID 04/29/16 [History] Aspirin 81 mg PO DAILY 04/29/16 [History] Atorvastatin [Lipitor] 40 mg PO HS 04/29/16 [History] Dextrose [Dex4 Glucose] 15 gm PO DAILY PRN 04/29/16 [History] DiphenhydraMINE [Benadryl] 50 mg PO HS PRN 04/29/16 [History] Docusate Sodium [Dok] 100 mg PO BID PRN 04/29/16 [History] Duloxetine [Cymbalta] 30 mg PO DAILY 04/29/16 [History] Ergocalciferol (VITAMIN D2) [Vitamin D2] 50,000 unit PO TU 04/29/16 [History] Ferrous Sulfate [Iron] 325 mg PO TID PRN 04/29/16 [History] Furosemide [Lasix] 40 mg PO DAILY 04/29/16 [History] Gabapentin [Neurontin] 600 mg PO TID 04/29/16 [History] Hydroxyzine HCl 50 mg PO TID PRN 04/29/16 [History] Insulin ASPART [NovoLOG] 20 unit SQ TID PRN 04/29/16 [History] Insulin Glargine [Lantus] 55 unit SQ BID 04/29/16 [History] Lisinopril [Zestril] 10 mg PO DAILY 04/29/16 [History] Mineral Oil/Petrolatum,White [Eucerin Creme] 1 appl TP TID PRN 04/29/16 [History ] Mirtazapine [Remeron] 30 mg PO HS 04/29/16 [History] Mv-Mn/FA/Vit K/Lycop/Lut/Coq10 [Daily Multivitamin Capsule] 1 each PO DAILY [History] NIFEdipine [Afeditab Cr] 30 mg PO DAILY PRN 04/29/16 [History] Pantoprazole Sodium [Protonix] 40 mg PO DAILY 04/29/16 [History] Polyvinyl Alcohol [Artificial Tears] 1 drop BOTH EYES QID PRN 04/29/16 [History] Sertraline [Zoloft] 200 mg PO DAILY 04/29/16 [History] Simethicone [Gas-X] 80 mg PO QID 04/29/16 [History] Sucralfate [Carafate] 1 gm PO QIDAC 04/29/16 [History] Topiramate [Topamax] 50 mg PO HS PRN 04/29/16 [History] Trazodone HCl 100 mg PO HS PRN 04/29/16 [History] Urea [Remeven] 1 appl TP DAILY 04/29/16 [History] Ciprofloxacin HCl [Cipro] 250 mg PO DAILY #4 tablet 05/01/16 [Rx] Allergies/Adverse Reactions: Allergies No Known Allergies Allergy (Verified 04/29/16 12:48) - Respiratory Orders Oxygen / L per min (3) Smoking Cessation: Smoking cessation has been advised. For more information, call the [place] Tobacco Quit Line at 5-326-TWQN-NOW. - Ancillary Orders May use pressure relief devices daily prn, May go on LUANN w/family/respon libertarian w /meds at nurse discretion PRN, May consult with Dentist, Lacrosse Player, Front End Developer PRN - Advance Directives Code Status: Full Code - Mobility Orders Ambulate (up with assistance, fall precaution) - Rehabiliation Orders Rehab Potential: Fair Rehab Orders: ROM Exercises, Evaluation for Physical Therapy, Evaluation for Occupational Therapy - Treatments Skin tear care topically daily PRN per policy, May check for fecal impaction rectally daily PRN, Fleet enema rectally every other day PRN cleansing purposes - Diet Orders No Added Salt (JANELLE), Renal (and diabetic), Cardiac CERTIFICATION: I certify that the transfer of the above named patient to an Extended Care Facility is necessary for the continuing treatment of the diagnosis listed. The above information is true and accurate reflection of patient's current condition. Confidential - Redisclosure prohibited without a patient's written consent. <Ten Nunez - Last Filed: 05/01/16 14:43> - Diagnosis (1) Acute respiratory failure with hypoxia Status: Acute (2) CHF exacerbation Status: Acute (3) CHANELL (obstructive sleep apnea) Status: Acute (4) Morbid obesity Status: Acute (5) CKD (chronic kidney disease) stage 4, GFR 15-29 ml/min Status: Chronic (6) Anemia Status: Chronic (7) Bacteriuria with pyuria Status: Acute - Respiratory Orders Smoking Cessation: Smoking cessation has been advised. For more information, call the [place] Tobacco Quit Line at 1-127-VUEKNOW. CERTIFICATION: I certify that the transfer of the above named patient to an Extended Care Facility is necessary for the continuing treatment of the diagnosis listed. The above information is true and accurate reflection of patient's current condition. Confidential - Redisclosure prohibited without a patient's written consent.
[2016-05-01] MEDS: Furosemide 40 MG/4 ML VIAL IVP SCH ×2 (12:11→16:58)
[2016-05-01] MEDS: Mirtazapine 15 MG TABLET PO SCH (22:04)
[2016-05-01] MEDS: Insulin DETEMIR 100 UNIT/ML X5UNITS SQ SCH (22:05)
[2016-05-02] MEDS: Insulin LISPRO 300 UNITS/3 ML VIAL SQ SCH ×7 (01:40→17:20)
[2016-05-02] MEDS: Ipratropium/Albuterol Neb 3 ML IH SCH ×4 (03:34→23:32)
[2016-05-02] MEDS: Isosorbide MONOnitrate (24 HR) 30 MG TAB.ER.24H PO SCH (08:15)
[2016-05-02] MEDS: Sucralfate 1 GM TABLET PO SCH ×3 (08:16→15:53)
[2016-05-02] MEDS: Aspirin 81 MG TAB.CHEW PO SCH (08:16)
[2016-05-02] MEDS: Ascorbic Acid 500 MG TABLET PO SCH ×2 (08:16→15:53)
--- NOTE | 2016-05-02 08:25 | Internal Med Progress Note ---
<Ariel Cr - Last Filed: 05/02/16 13:39> Date of Encounter: 05/02/16 Time of Encounter: 08:25 - Assessment and plan (1) Dyspnea Current Visit: Yes Status: Acute Assessment and plan: He states that this started 6 months ago, progressively got worse since then, even at rest, not compliant with cpap at night, likely uncontrolled CHANELL, his dyspnea is likely multifactorial from obesity hypovent syndrome, CHANELL, chronic anemia (symptomatic), and possible underlying pulm HTN, chest x-ray showed b/l pulm edema, IV lasix diuresis helped him well, echo was poor study normal EF and LV diastolic fxn, no mentioning of pulm HTN, after 1 transfusion of PRBC, his SOB improved as well, stable to discharge today to [place], pt states that he will be compliant with CPAP at night. Qualifiers: Qualified Code(s): R06.00 - Dyspnea, unspecified (2) Chronic anemia Current Visit: Yes Status: Acute Assessment and plan: Pt states that since childhood he was anemic, runs in his family, workup was done in the past as outpt, no records available, possible underlying thalassemia , he got 4 transfustions in last 4 months in different facility, EGD/ colonoscopy this year showed gastric ulcer and polyps in colon, no recent bloody /black stool, s/p 1 unit of PRBC given, which improved his SOB well. (3) CHANELL (obstructive sleep apnea) Current Visit: Yes Status: Acute Assessment and plan: Not compliant with CPAP at [place], consulted [facility] for bedtime PAP. (4) DM II (diabetes mellitus, type II), controlled Current Visit: Yes Status: Acute Assessment and plan: Recent a1c was 6.9, con't levemir and SSI. Qualifiers: Qualified Code(s): E11.9 - Type 2 diabetes mellitus without complications (5) Elevated troponin Current Visit: Yes Status: Acute Assessment and plan: Likely demand ischemia in a setting of symptomatic anemia, echo done, cardio consulted, no need further workup. (6) JETHRO (acute kidney injury) Current Visit: Yes Status: Acute Assessment and plan: Acute vs chronic, renal u/s normal, he is urinating fine, UA obtained, avoid nephrotoxic agent, could be pre-renal from fluid overload, con't IV lasix. (7) Morbid obesity Current Visit: Yes Status: Acute Assessment and plan: Diet and lifestyle modifications. Qualifiers: Obesity type: due to excess calories Qualified Code(s): E66.01 - Morbid ( severe) obesity due to excess calories (8) DVT prophylaxis Current Visit: Yes Status: Acute Assessment and plan: IPCs. - Subjective Interval history: Pt seen and examined, he states that his SOB is at baseline, no productive cough , urinating fine. - Constitutional Vitals: Temp Pulse Resp BP Pulse Ox 98.3 F 68 16 170/87 96 05/02/16 07:00 05/02/16 07:00 05/02/16 07:00 05/02/16 07:00 05/02/16 07:00 General appearance: Present: cooperative, A&O X 3, morbidly obese, no acute distress, answers questions appropriately - Head Head exam: Present: atraumatic, normocephalic - Eye Eye exam: Present: PERRL, conjuntiva pink, sclera anicteric Pupils: Present: PERRL - Neck Neck exam general surgery: Present: supple, trachea midline. Absent: lymphadenopathy - Respiratory Respiratory exam: Present: CTAB. Absent: accessory muscle use, rales, rhonchi, wheezes - Cardiovascular Cardiovascular exam: Present: RRR, +S1, +S2. Absent: diastolic murmur, gallop, rubs, systolic murmur - GI/Abdominal GI/Abdominal exam: Present: normal bowel sounds, soft, no peritoneal signs. Absent: distended, tenderness - Extremities Exam Extremities exam: Present: pedal edema (mild non-pitting b/l), warm, radial pulses palpable and symetrical. Absent: calf tenderness, cyanotic - Neurological Exam Neurological exam: Present: CN II-XII intact, oriented X3, no focal deficits. Absent: pronater drift, facial droop, speech deficit - Skin Skin exam: Present: dry, intact Internal Medicine: Result - Labs CBC & Chem 7: 05/01/16 04:28 05/01/16 04:28 - ABG Interpretation ABG results: PT/INR, D-dimer PT 13.9 Seconds (9.4-12.1) H 04/29/16 17:30 D-Dimer 1066 ng/mLFEU (0-500) H 04/30/16 01:08 - VTE Documentation of Mechanical Device: Graduated compression elastic hosiery Consult Discharge Plan - Plan Instructions: Ciprofloxacin (By mouth), Heart Failure (DC), Acute Kidney Injury (DC), Acute Kidney Injury (GEN), Diabetes Mellitus Type 2 in Adults (DC) , Chronic Hypertension (DC) [facility] Provider[facility] - (F/u w/in a week for hospital d/c f/u, uncontrolled CHANELL, he needs to be compliant with CPAP at night, chronic anemia, nephrology referral for CKD III/IV, HTN, DM II) Prescriptions: Ciprofloxacin HCl [Cipro] 250 mg PO DAILY #4 tablet <Ten Nunez - Last Filed: 05/02/16 18:59> Date of Encounter: 05/02/16 - Assessment and plan (1) Acute respiratory failure with hypoxia Current Visit: Yes Status: Acute (2) CHF exacerbation Current Visit: Yes Status: Acute Qualifiers: Congestive heart failure type: diastolic Qualified Code(s): I50.33 - Acute on chronic diastolic (congestive) heart failure (3) CHANELL (obstructive sleep apnea) Current Visit: Yes Status: Acute (4) Morbid obesity Current Visit: Yes Status: Acute Qualifiers: Obesity type: due to excess calories Qualified Code(s): E66.01 - Morbid ( severe) obesity due to excess calories (5) CKD (chronic kidney disease) stage 4, GFR 15-29 ml/min Current Visit: Yes Status: Chronic (6) Anemia Current Visit: Yes Status: Chronic Qualifiers: Anemia type: other cause Other causes of anemia: other cause, not classified Qualified Code(s): D64.89 - Other specified anemias (7) Bacteriuria with pyuria Current Visit: Yes Status: Acute - Constitutional Vitals: Temp Pulse Resp BP Pulse Ox 98.2 F 60 16 163/83 96 05/02/16 16:00 05/02/16 16:00 05/02/16 16:00 05/02/16 16:00 05/02/16 16:00 Internal Medicine: Result - Labs CBC & Chem 7: 05/02/16 16:19 05/01/16 04:28 Labs: Short CBC 05/02/16 Range/Units 16:19 WBC 10.3 (4.3-11.1) K/mcL Hgb 8.2 L (12.9-16.9) g/dL Hct 28.5 L (37.5-50.1) % Plt Count 263 (140-400) K/mcL Neutrophils # 6.4 (1.6-8.9) K/mcL - ABG Interpretation ABG results: PT/INR, D-dimer PT 13.9 Seconds (9.4-12.1) H 04/29/16 17:30 D-Dimer 1066 ng/mLFEU (0-500) H 04/30/16 01:08 - Attending Attestation I examined this patient and my medical decision-making was reviewed with the Resident Physician on 05/02/16. I agree with the documented findings, disposition and treatment plan as described except to the extent set forth below. Mr. Mccoy is currently admitted for acute hypercarbic resp failure, CHANELL and UTI. He remains moderate risk due to respiratory status. He is awaiting discharge to [place]. Mr. Mccoy is sitting up in chair and talking on the phone. He denies CP or SOB. No abd pain. Exam Alert. Comfortable Heart reg Lungs diminished but clear Abd soft I/P 1. Acute resp failure 2. CHANELL 3. Anemia - had GI work up recently as outpatient Further diagnoses and plan as above. [facility].
[2016-05-02] MEDS: Furosemide 40 MG/4 ML VIAL IVP SCH ×2 (08:36→17:58)
[2016-05-02 16:07] VITALS: BP 163/83
[2016-05-02 16:40] LABS: Hemoglobin 8.2 g/dL (12.9-16.9)
[2016-05-02 16:46] LABS: Basophils % 0.2 %; Eosinophils # 0.3 K/mcL (0.0-0.6); Eosinophils % 2.6 %; Hematocrit 28.5 % (37.5-50.1); Immature Granulocytes % 0.3 % (0-4); Lymphocytes # 2.7 K/mcL (0.6-4.6); Lymphocytes % 26.5 %; Mean Corpuscular HGB Conc 28.8 g/dL (31.6-35.5); Mean Corpuscular Hemoglobin 24.5 pg (28.0-33.3); Mean Corpuscular Volume 85.1 fL (83.0-100.0); Mean Platelet Volume 10.3 fL (9.4-12.4); Monocytes # 0.8 K/mcL (0.0-1.3); Neutrophils # 6.4 K/mcL (1.6-8.9); Platelet Count 263 K/mcL (140-400); Red Blood Count 3.35 M/mcL (4.19-5.50); Segmented Neutrophils % 62.4 %
[2016-05-02 17:24] LABS: Hypochromasia Present (Not Present); Platelet Estimate Normal (Normal); Polychromasia 1+ (Not Present); Rouleaux Present (Not Present)
[2016-05-03] MEDS: Ipratropium/Albuterol Neb 3 ML IH SCH (04:06)
== END 2016-05-02 19:05 | DRG 205 ==
LOC: EMEROO 09:25 → 2ANU 09:25 → SUATTDRO 13:43 → OBSVTOIN 13:43 → 2ANU 13:56 → 2NENU 14:00
PROVIDERS: ADMIT Internal Medicine; ATTEND Internal Medicine

== ENCOUNTER 2016-10-08 01:19 | Inpatient (IN) ==
[2016-10-08] MEDS ORDERED: Aspirin 81 MG TAB.CHEW PO ONE (01:37)
[2016-10-08 01:54] LABS: Basophils % 0.2 %; Eosinophils # 0.2 K/mcL (0.0-0.6); Eosinophils % 1.3 %; Hematocrit 28.9 % (37.5-50.1); Hemoglobin 8.2 g/dL (12.9-16.9); Immature Granulocytes % 0.5 % (0-4); Immature Platelets 1.8 % (1.1-6.1); Lymphocytes # 2.7 K/mcL (0.6-4.6); Lymphocytes % 24.1 %; Mean Corpuscular HGB Conc 28.4 g/dL (31.6-35.5); Mean Corpuscular Hemoglobin 22.7 pg (28.0-33.3); Mean Corpuscular Volume 79.8 fL (83.0-100.0); Mean Platelet Volume 9.3 fL (9.4-12.4); Monocytes % 8.9 %; Neutrophils # 7.3 K/mcL (1.6-8.9); Platelet Count 308 K/mcL (140-400); Red Blood Count 3.62 M/mcL (4.19-5.50); Red Cell Distribution Width 17.9 % (11.5-14.5)
--- NOTE | 2016-10-08 02:01 | Emergency Department Note ---
Disposition Clinical Impression: Pulmonary edema Qualifiers: Chronicity: acute Qualified Code(s): J81.0 - Acute pulmonary edema Dyspnea Qualifiers: Dyspnea type: orthopnea Qualified Code(s): R06.01 - Orthopnea Disposition: Admitted As Inpatient Condition: Good Time of Disposition: 02:37 General Adult HPI - General Chief complaint: ED Shortness of Breath/Dyspnea Stated complaint: racing heart/shortness of breath Time Seen by Provider: 10/08/16 01:24 Source: patient, EMS Mode of arrival: EMS Limitations: no limitations Nursing Notes Reviewed: Yes Vital Signs Reviewed: Yes - History of Present Illness HPI Narrative: 60-year-old gentleman with history of diabetes, congestive heart failure, CKD, morbid obesity presents with chief complaint of abrupt onset and palpitations with mild dyspnea without chest discomfort that began at rest just prior to arrival. He states that the symptoms are partially better without treatment here. He denies history of similar symptoms. He denies history of a left heart catheter, but has had an ultrasound of his heart in the remote past. He was hospitalized 2 weeks ago for scrotal cellulitis at the [facility] in [place]. He states that this is much better at this time. He denies any associated headache, confusion, syncope, fevers, neck stiffness, abdominal pain , nausea, vomiting, diarrhea or constipation. He states that his pedal edema is improved from usual. He denies any calf tenderness. He denies history of DVT or PE. Pain Scale: 0 - Related Data Home Medications Medication Instructions Recorded Confirmed Acetaminophen [Tylenol] 650 mg PO Q8H PRN 04/29/16 10/08/16 Aspirin 81 mg PO DAILY 04/29/16 10/08/16 Atorvastatin [Lipitor] 40 mg PO HS 04/29/16 10/08/16 DULoxetine [Cymbalta] 30 mg PO DAILY PRN 04/29/16 10/08/16 Ergocalciferol (VITAMIN D2) 50,000 unit PO TU 04/29/16 10/08/16 [Vitamin D2] Ferrous Sulfate [Iron] 325 mg PO TID PRN 04/29/16 10/08/16 Furosemide [Lasix] 40 mg PO DAILY 04/29/16 10/08/16 Gabapentin [Neurontin] 600 mg PO TID 04/29/16 10/08/16 Insulin ASPART [NovoLOG] 15 unit SQ TID PRN 04/29/16 10/08/16 Insulin Glargine [Lantus] 48 unit SQ BID 04/29/16 10/08/16 Lisinopril [Zestril] 10 mg PO DAILY PRN 04/29/16 10/08/16 Trazodone HCl 100 mg PO HS 04/29/16 10/08/16 OxyCODONE/APAP 5/325 [Percocet 1 each PO Q6HR PRN 10/08/16 10/08/16 5/325 MG] Previous Rx's Medication Instructions Recorded levoFLOXacin [Levaquin] 500 mg PO DAILY #14 tablet 09/24/16 Allergies Allergy/AdvReac Type Severity Reaction Status Date / Time No Known Allergies Allergy Verified 09/24/16 09:32 All systems ED: reviewed and negative except as stated. Past Medical History - Past Medical History Attestation: Yes The following information was validated with the patient. Source: patient Medical history: Reports: CHF, diabetes, hyperlipidemia, hypertension, renal disease, other Psychiatric history: Reports: no psych history - Social History Smoking Status: Never smoker Smokeless Tobacco Status: No Alcohol use: Reports: none Drug use: Reports: none Physical Exam - Head Head exam: atraumatic, normocephalic, normal inspection - Eye Eye exam: Present: normal appearance, PERRL, EOMI - ENT ENT exam: normal exam, normal oropharynx, mucous membranes moist - Neck Neck exam: Present: normal inspection, full ROM, trachea midline - Chest Chest inspection: Present: normal inspection, symmetric chest wall rise - Respiratory Respiratory exam: Clear to auscultation bilaterally without wheezes rales or rhonchi Cardiovascular Regular rate and rhythm with mild systolic murmur. - Abdominal Exam Limited by obesity, but no definite masses or distention. Abdomen is soft and nontender. Moderate scrotal edema. - Extremities Exam Chronic changes to the bilateral legs. No pitting edema. No calf tenderness. - Back Exam Back exam: Present: normal inspection, full ROM. Absent: tenderness, CVA tenderness (R), CVA tenderness (L) - Neurological Exam Neurological exam: Present: alert, oriented X3, CN II-XII intact - Psychiatric Psychiatric exam: Present: normal affect, normal mood - Skin Skin exam: Present: warm, dry, intact, normal color - General Limitations: no limitations General appearance: alert, in no apparent distress Course - Reevaluation(s) Reevaluation #1: Workup here showed pulmonary edema on chest x-ray. Mild leukocytosis and stable anemia. Pulse ox is normal on nasal cannula. Patient admitted for pulmonary edema and suspected congestive heart failure. Accepted by Dr. Agarwal. Time: 02:38 Vital Signs Temperature 99.8 F H 10/08/16 01:24 Pulse Rate 85 10/08/16 01:24 Respiratory Rate 16 10/08/16 01:24 Blood Pressure 163/58 10/08/16 01:24 O2 Sat by Pulse Oximetry 99 10/08/16 01:24 Temperature 97.9 F 10/08/16 03:44 Pulse Rate 77 10/08/16 03:44 Respiratory Rate 14 10/08/16 03:44 Blood Pressure 148/63 10/08/16 03:44 O2 Sat by Pulse Oximetry 97 10/08/16 03:44 Oxygen Delivery Oxygen Delivery Nasal Cannula Medical Decision Making - Lab Data Result diagrams: 10/08/16 01:45 10/08/16 01:45 Lab Results 10/08/16 10/08/16 10/08/16 Range/Units 01:45 01:45 01:45 WBC 11.2 H (4.3-11.1) K/mcL RBC 3.62 L (4.19-5.50) M/mcL Hgb 8.2 L (12.9-16.9) g/dL Hct 28.9 L (37.5-50.1) % MCV 79.8 L (83.0-100.0) fL MCH 22.7 L (28.0-33.3) pg MCHC 28.4 L (31.6-35.5) g/dL RDW 17.9 H (11.5-14.5) % Plt Count 308 (140-400) K/mcL MPV 9.3 L (9.4-12.4) fL Immature Gran % 0.5 (0-4) % Seg Neutrophils % 65.0 % Lymphocytes % 24.1 % Monocytes % 8.9 % Eosinophils % 1.3 % Basophils % 0.2 % Neutrophils # 7.3 (1.6-8.9) K/mcL Lymphocytes # 2.7 (0.6-4.6) K/mcL Monocytes # 1.0 (0.0-1.3) K/mcL Eosinophils # 0.2 (0.0-0.6) K/mcL Basophils # 0.0 (0.0-0.2) K/mcL Platelet Estimate Normal (Normal) Immature Plt Fraction 1.8 (1.1-6.1) % Hypochromasia Present A (Not Present) Sodium 140 (136-145) mEq/L Potassium 4.4 (3.5-4.5) mEq/L Chloride 102 (98-109) mEq/L Carbon Dioxide 26 (19-29) mEq/L BUN 27 H (8-26) mg/dL Creatinine 2.01 H (0.72-1.25) mg/dL Est GFR ( Amer) 41 L (> 60) Est GFR (Non-Af Amer) 34 L (> 60) BUN/Creatinine Ratio 13 (6-26) Glucose 236 H (70-99) mg/dL Calculated Osmolality 303 H (280-300) Calcium 8.5 L (8.6-10.8) mg/dL Troponin I (0-0.03) ng/mL B-Natriuretic Peptide 79 (0-100) pg/mL 10/08/16 Range/Units 01:45 WBC (4.3-11.1) K/mcL RBC (4.19-5.50) M/mcL Hgb (12.9-16.9) g/dL Hct (37.5-50.1) % MCV (83.0-100.0) fL MCH (28.0-33.3) pg MCHC (31.6-35.5) g/dL RDW (11.5-14.5) % Plt Count (140-400) K/mcL MPV (9.4-12.4) fL Immature Gran % (0-4) % Seg Neutrophils % % Lymphocytes % % Monocytes % % Eosinophils % % Basophils % % Neutrophils # (1.6-8.9) K/mcL Lymphocytes # (0.6-4.6) K/mcL Monocytes # (0.0-1.3) K/mcL Eosinophils # (0.0-0.6) K/mcL Basophils # (0.0-0.2) K/mcL Platelet Estimate (Normal) Immature Plt Fraction (1.1-6.1) % Hypochromasia (Not Present) Sodium (136-145) mEq/L Potassium (3.5-4.5) mEq/L Chloride (98-109) mEq/L Carbon Dioxide (19-29) mEq/L BUN (8-26) mg/dL Creatinine (0.72-1.25) mg/dL Est GFR ( Amer) (> 60) Est GFR (Non-Af Amer) (> 60) BUN/Creatinine Ratio (6-26) Glucose (70-99) mg/dL Calculated Osmolality (280-300) Calcium (8.6-10.8) mg/dL Troponin I 0.02 (0-0.03) ng/mL B-Natriuretic Peptide (0-100) pg/mL - EKG Data EKG #1 EKG attestation: Yes I reviewed and interpreted this EKG. EKG results narrative: EKG shows normal sinus rhythm at 89 with normal axis and intervals. No ST elevation or depression. No T-wave inversions or flattening. No pathologic Q waves. No old EKG available for comparison. Attestation Statement - Attestation Attestation: I, Ajay Vázquez, examined this patient and my medical decision-making was reviewed with the MAT MAKING MACHINE TENDER/PA/Advanced Practice Nurse/Resident Physician. I agree with the documented findings, disposition and treatment plan as described except to the extent set forth below. 60-year-old male presents with concerns of palpitations shortness of breath and chest pain. Patient states the symptoms started acutely while trying to maneuver himself across his house and his wheelchair. Patient states he was recently admitted to the hospital for evaluation of scrotal edema. States he was discharged with antibiotics for infection of his scrotum which he is currently taking at home. Patient states the swelling of his scrotum has improved but is not back to normal. Patient denies fever, chills, nausea, vomiting, diarrhea. Patient states he had a feeling of his heart racing prior to arrival to the emergency department. He states he still has a feeling of mild chest pressure during my evaluation. EKG showed normal sinus rhythm with a rate of 89 without evidence of STEMI. Initial troponin was negative. Chest x -ray showed possible pulmonary edema however his BNP is within normal limits. Patient will be started on Lasix in the emergency department for likely pulmonary edema and admitted to the hospital for further evaluation of acute chest pain to rule out ACS..
[2016-10-08 02:07] LABS: Calcium 8.5 mg/dL (8.6-10.8); Potassium 4.4 mEq/L (3.5-4.5)
[2016-10-08 02:19] LABS: Hypochromasia Present (Not Present); Platelet Estimate Normal (Normal)
[2016-10-08] MEDS ORDERED: Furosemide 40 MG/4 ML VIAL IVP ONE (02:24)
[2016-10-08] MEDS ORDERED: Naloxone 0.4 MG/ML INJ IVP PRN (03:18)
[2016-10-08] MEDS ORDERED: Ondansetron 4 MG/2 ML VIAL IVP PRN (03:18)
[2016-10-08] MEDS ORDERED: Dextrose Gel 15 GM PO PRN ×2 (03:22)
[2016-10-08] MEDS ORDERED: *HR* Dextrose 50 % in Water (Syg) 50 ML SYRINGE IVP PRN (03:22)
[2016-10-08] MEDS ORDERED: D5% in Water 1,000 ML IVC PRN (03:22)
--- NOTE | 2016-10-08 03:37 | Internal Med History&Physical ---
Date of Encounter: 10/08/16 Time of Encounter: 03:45 Assessment and Plan (1) Pulmonary edema Current visit: No Status: Acute Acute pulmonary edema - causing acute shortness of breath Dyspnea is likely multifactorial - chronic anemia, pulmonary hypertension, CHANELL, obesity hypoventilation syndrome IV Lasix twice a day, fluid restriction Strict I's and O's, daily weight Continue BiPAP, continues pulse ox, cardiac telemetry EKG shows normal sinus rhythm Chest x-ray pulmonary edema bilateral labs a.m. Qualifiers: Chronicity: acute Qualified Code(s): J81.0 - Acute pulmonary edema (2) Diabetes mellitus type 2 in obese Current visit: No Status: Chronic Type 2 diabetes mellitus, insulin-dependent, hyperglycemia - with neuropathy Insulin sliding scale, Lasix, Levemir (3) Cellulitis of scrotum Current visit: Yes Status: Acute Diagnosed about 2 weeks ago, has been treated at the [facility] Continue by mouth Levaquin (4) CHANELL (obstructive sleep apnea) Current visit: No Status: Chronic Obstructive sleep apnea on CPAP at home Continue BiPAP for now (5) Morbid obesity Current visit: No Status: Chronic Encouraged weight loss, lifestyle changes Qualifiers: Obesity type: due to excess calories Qualified Code(s): E66.01 - Morbid ( severe) obesity due to excess calories (6) Anemia Current visit: No Status: Chronic Chronic anemia likely due to CKD, H&H at baseline Qualifiers: Anemia type: other cause Other causes of anemia: other cause, not classified Qualified Code(s): D64.89 - Other specified anemias (7) CKD (chronic kidney disease) stage 3, GFR 30-59 ml/min Current visit: No Status: Chronic CKD stage III, creatinine at baseline Labs in a.m. (8) DVT prophylaxis Current visit: No Status: Acute Continue subcutaneous heparin Internal Medicine - H&P: HPI Chief complaint: Shortness of breath and palpitations Admitted From: Emergency Dept History of present illness: Mr. Mccoy is a 60 year old male with past medical history of CHF, CKD, diabetes , hypertension, obstructive sleep apnea and hyperlipidemia. He presents to the ED with complaints of shortness of breath and palpitations that started about 1 hour prior to arrival in the ED. Patient states symptoms came on suddenly. He stated that his heart began to race initially and then also developed shortness of breath. Symptoms seemed to be aggravated with exertion. No alleviating factors. Patient does state the symptoms are slightly better at present. He denies chest pain, denies lightheadedness denies dizziness denies cough denies abdominal pain or vomiting or nausea. Patient also states he does have chronic leg edema which is slightly better. Patient states he was also being treated at the [facility] for scrotal cellulitis and is currently on by mouth Levaquin. Patient denies any other complaints. No other associated symptoms. On examination patient is awake and alert. Not in any distress. He is able to provide all history and able to speak in full sentences. No family members at bedside. Patient is being admitted for pulmonary edema. Patient will be on BiPAP and on IV Lasix. He has been explained about his condition and plan of care. He understood and agreed. No unanswered questions. CODE STATUS full code. Past Med Surg Social Fam HX - Past Medical History Medical history: CHF, diabetes, hyperlipidemia, hypertension, renal disease, other Psychiatric history: no psych history - Social History Smoking Status: Never smoker Smokeless Tobacco Status: No Alcohol use: none Drug use: none Internal Medicine - H&P: Meds Acetaminophen [Tylenol] 650 mg PO Q8H PRN 04/29/16 [History] Aspirin 81 mg PO DAILY 04/29/16 [History] Atorvastatin [Lipitor] 40 mg PO HS 04/29/16 [History] DULoxetine [Cymbalta] 30 mg PO DAILY PRN 04/29/16 [History] Ergocalciferol (VITAMIN D2) [Vitamin D2] 50,000 unit PO TU 04/29/16 [History] Ferrous Sulfate [Iron] 325 mg PO TID PRN 04/29/16 [History] Furosemide [Lasix] 40 mg PO DAILY 04/29/16 [History] Gabapentin [Neurontin] 600 mg PO TID 04/29/16 [History] Insulin ASPART [NovoLOG] 15 unit SQ TID PRN 04/29/16 [History] Insulin Glargine [Lantus] 48 unit SQ BID 04/29/16 [History] Lisinopril [Zestril] 10 mg PO DAILY PRN 04/29/16 [History] Trazodone HCl 100 mg PO HS 04/29/16 [History] levoFLOXacin [Levaquin] 500 mg PO DAILY #14 tablet 09/24/16 [Rx] OxyCODONE/APAP 5/325 [Percocet 5/325 MG] 1 each PO Q6HR PRN 10/08/16 [History] Allergies No Known Allergies Allergy (Verified 09/24/16 09:32) All Systems PM: A 10-system review of systems was performed and is negative for pertinent findings except as documented above in the HPI. - Constitutional Constitutional: fatigue, weakness - EENT Eyes: no blurry vision, no loss of vision - Cardiovascular Cardiovascular ROS IM: dyspnea, dyspnea on exertion, edema, orthopnea, palpitations, no chest pain, no claudication, no lightheadedness, no syncope - Respiratory Respiratory: dyspnea, dyspnea on exertion, snoring, no cough, no wheezing, no chest congestion - Gastrointestinal Gastrointestinal: no abdominal pain, no cramping, no diarrhea, no hematemesis, no nausea, no vomiting - Genitourinary Genitourinary ROS male: no dysuria Additional comments: Scrotal cellulitis improving - Musculoskeletal Musculoskeletal ROS IM: arthralgias - Neurological Neurological ROS: no abnormal gait, no confusion, no dizziness, no focal weakness, no loss of vision, no vertigo - Constitutional Vitals: Temp Pulse Resp BP Pulse Ox 99.8 F H 81 18 154/66 98 10/08/16 01:24 10/08/16 01:57 10/08/16 03:28 10/08/16 03:28 10/08/16 01:57 General appearance: Present: A&O X 3, morbidly obese, pleasant, no acute distress, answers questions appropriately - Head Head exam: Present: atraumatic - Eye Eye exam: Present: EOMI - ENT ENT exam: Present: mucous membranes moist - Respiratory Respiratory exam: Present: rales (Mild bilateral). Absent: rhonchi, wheezes, tachypnea - Cardiovascular Cardiovascular exam: Present: RRR, +S1, +S2, systolic murmur - GI/Abdominal GI/Abdominal exam: Present: soft, no peritoneal signs (Obese). Absent: firm, guarding, rigid, tenderness - Extremities Exam Extremities exam: Present: pedal edema (Bilateral leg pitting 4+), radial pulses palpable and symetrical. Absent: cyanotic - Neurological Exam Neurological exam: Present: alert, oriented X3, no focal deficits - Skin Additional comments: Chronic stasis dermatitis of both lower extremities Internal Med - H&P Results - Labs CBC & Chem 7: 10/08/16 01:45 10/08/16 01:45
[2016-10-08] MEDS: Famotidine 20 MG/2 ML VIAL IVP SCH ×2 (04:56→17:09)
[2016-10-08 05:23] LABS: Bilirubin,Urine Negative (Negative); Blood,Urine Trace (Negative); Clarity,Urine Clear (Clear); Color,Urine Yellow (Yellow); Glucose,Urine (UA) Normal (Normal); Ketones,Urine Negative (Negative); Leukocyte Esterase,Urine Negative (Negative); Nitrite,Urine Negative (Negative); Protein,Urine 30 mg/dL (Neg-Trace); Urobilinogen,Urine Normal (Normal)
[2016-10-08 05:25] LABS: Bacteria,Urine None Seen per hpf (None-Few); Hyaline Casts,Urine None Seen per lpf (None-Few); RBC,Urine 0-3 per hpf (0-3); Squamous Epithelial Cell,Urine Moderate per lpf (None-Few); WBC,Urine 0-3 per hpf (0-3)
[2016-10-08] MEDS: Insulin LISPRO 300 UNITS/3 ML VIAL SQ SCH ×3 (06:51→16:58)
[2016-10-08] MEDS ORDERED: INSULIN GLARGINE SQ SCH (09:00)
[2016-10-08 09:01] LABS: Eosinophils % 1.2 %; Hemoglobin 7.9 g/dL (12.9-16.9); Red Cell Distribution Width 17.8 % (11.5-14.5)
[2016-10-08 09:03] LABS: Basophils % 0.1 %; Eosinophils # 0.1 K/mcL (0.0-0.6); Hematocrit 28.2 % (37.5-50.1); Immature Granulocytes % 0.7 % (0-4); Lymphocytes # 1.9 K/mcL (0.6-4.6); Mean Corpuscular Hemoglobin 22.6 pg (28.0-33.3); Mean Corpuscular Volume 80.6 fL (83.0-100.0); Mean Platelet Volume 9.4 fL (9.4-12.4); Monocytes # 0.8 K/mcL (0.0-1.3); Platelet Count 299 K/mcL (140-400)
[2016-10-08 09:07] LABS: Calcium 8.5 mg/dL (8.6-10.8); Magnesium 1.3 mg/dL (1.6-2.6); Potassium 3.9 mEq/L (3.5-4.5)
[2016-10-08 09:08] LABS: INR 1.3
[2016-10-08 09:26] LABS: Hemoglobin A1C 7.5 %
[2016-10-08] MEDS: levoFLOXacin 500 MG TABLET PO SCH (09:40)
[2016-10-08] MEDS: Gabapentin 300 MG CAPSULE PO SCH ×3 (09:40→20:31)
[2016-10-08] MEDS: Insulin DETEMIR 100 UNIT/ML X5UNITS SQ SCH ×2 (09:40→20:32)
[2016-10-08] MEDS: Aspirin 81 MG TAB.CHEW PO SCH (09:41)
[2016-10-08] MEDS: *HR* Heparin 5,000 UNIT/ML VIAL SQ SCH ×2 (09:41→16:29)
[2016-10-08] MEDS: Furosemide 40 MG/4 ML VIAL IVP SCH ×2 (09:41→20:32)
[2016-10-08] MEDS: Acetaminophen 325 MG TABLET PO PRN ×2 (09:42→20:31)
[2016-10-08 09:47] LABS: Neutrophils # 6.1 K/mcL (1.6-8.9)
[2016-10-08 10:24] LABS: Anisocytosis 1+ (Not Present); Hypochromasia Present (Not Present); Macrocytosis Present (Not Present); Platelet Estimate Normal (Normal); Polychromasia 1+ (Not Present)
[2016-10-08] MEDS ORDERED: INSULIN ASPART 15 UNIT SQ PRN (13:10)
[2016-10-08] MEDS ORDERED: *HR* OxyCODONE/APAP 5/325 TABLET PO PRN (13:10)
--- NOTE | 2016-10-08 16:49 | Internal Med Progress Note ---
Date of Encounter: 10/08/16 Time of Encounter: 12:30 - Assessment and plan (1) CHF exacerbation Current Visit: No Status: Acute Assessment and plan: patient stating he missed one dose his furosemide at home. Acute exacerbation of diastolic heart failure. Chest x-ray revealing pulmonary edema. We will continue to diurese with IV furosemide. Patient stating he has had a very large urinary output and states that he no longer has shortness of breath above his norm. No increased need for supplemental oxygenation, on 2-3 L at home, 2 L here. Patient with bilateral 4+ pitting edema however he states this is normal for him. Renal functioning has remained stable. We will observe overnight and likely discharge tomorrow morning pending clinical outcomes. Patient had an echocardiogram earlier this year that revealed an ejection fraction of 60% ITS Impressions Chest X-Ray 10/08/16 01:37 IMPRESSION: Pulmonary edema. D/ / Miguel Monroe MD / Miguel Monroe MD Interpreting Provider: Miguel Monroe MD Qualifiers: Congestive heart failure type: diastolic Qualified Code(s): I50.33 - Acute on chronic diastolic (congestive) heart failure (2) Pulmonary edema Current Visit: No Status: Acute Assessment and plan: See prior note for CHF exacerbation. Qualifiers: Chronicity: acute Qualified Code(s): J81.0 - Acute pulmonary edema (3) Cellulitis of scrotum Current Visit: Yes Status: Chronic Assessment and plan: Patient is stating this was diagnosed 3-1/2 weeks ago and he is on outpatient antibiotics. He states the swelling has gone down quite a bit and states that his "penis is starting to come back out." He denies dysuria at this time but endorses that when he urinates "it goes everywhere." Urinalysis negative. We will continue antibiotics and scrotal elevation as he tolerates. (4) Acute and chronic respiratory failure Current Visit: Yes Status: Chronic Assessment and plan: Patient is on 2-3 L per nasal cannula at home. Currently on 2 L per nasal cannula. Patient denies shortness of breath above his normal at this time. (5) Diabetes mellitus type 2 in obese Current Visit: No Status: Chronic Assessment and plan: Relatively well controlled with an A1c of 7.5%. We will continue sliding scale while admitted. (6) CKD (chronic kidney disease) stage 3, GFR 30-59 ml/min Current Visit: No Status: Chronic Assessment and plan: Currently at the high end of his normal, will continue to trend with diuresis. (7) DVT prophylaxis Current Visit: No Status: Acute Assessment and plan: Subcutaneous heparin (8) Chronic anemia Current Visit: No Status: Chronic Assessment and plan: Stable and consistent with his baseline. We will continue to trend. Patient due for his weekly dose of darbepoetin kyle. [facility], [facility] today and he should receive at home soon, will defer to outpatient treatment. (9) CHANELL (obstructive sleep apnea) Current Visit: No Status: Chronic Assessment and plan: Compliant with CPAP, followed by outpatient (10) Morbid obesity with BMI of 60.0-69.9, adult Current Visit: Yes Status: Chronic - Subjective Interval history: Patient seen and examined. On examination, patient is sitting upright in bed watching television. Patient stating shortness of breath has improved. He is complaining of his chronic low back pain and is requesting his home dosing of Percocet. He is also requesting his "anemic shot" but is unable to state the name-we will attempt to obtain from the [place]. He denies further concerns. - Constitutional Vitals: Temp Pulse Resp BP Pulse Ox 98.0 F 69 17 155/67 95 10/08/16 16:32 10/08/16 16:32 10/08/16 16:32 10/08/16 16:32 10/08/16 16:32 General appearance: Present: A&O X 3, morbidly obese, pleasant, no acute distress, answers questions appropriately - Head Head exam: Present: atraumatic, normocephalic - Eye Eye exam: Present: PERRL, conjuntiva pink, sclera anicteric Pupils: Present: PERRL - Neck Neck exam general surgery: Present: supple, trachea midline. Absent: lymphadenopathy - Respiratory Respiratory exam: Present: decreased breath sounds (2/2 body habitus). Absent: accessory muscle use, rales, respiratory distress, rhonchi, wheezes - Cardiovascular Cardiovascular exam: Present: RRR, +S1, +S2. Absent: diastolic murmur, gallop, rubs, systolic murmur - GI/Abdominal GI/Abdominal exam: Present: normal bowel sounds, soft, no peritoneal signs. Absent: distended, tenderness - exam: Present: scrotal swelling, testicular tenderness. Absent: normal inspection External exam: Present: swelling - Extremities Exam Extremities exam: Present: pedal edema (chronic), warm, radial pulses palpable and symetrical. Absent: calf tenderness, cyanotic - Neurological Exam Neurological exam: Present: alert, CN II-XII intact, oriented X3, no focal deficits, strengths equal and symetr throughout. Absent: pronater drift, facial droop, speech deficit - Skin Skin exam: Present: dry, intact, pallor, warm Internal Medicine: Result - Labs CBC & Chem 7: 10/08/16 08:15 10/08/16 08:15 Labs: Short CBC 10/08/16 Range/Units 08:15 WBC 9.0 (4.3-11.1) K/mcL Hgb 7.9 L (12.9-16.9) g/dL Hct 28.2 L (37.5-50.1) % Plt Count 299 (140-400) K/mcL Neutrophils # 6.1 (1.6-8.9) K/mcL BMP 10/08/16 08:15 Sodium 142 Potassium 3.9 Chloride 103 Carbon Dioxide 31 H BUN 25 Creatinine 1.96 H Glucose 223 H Calcium 8.5 L Cardiac Enzymes 10/08/16 10/08/16 Range/Units 08:15 13:53 Troponin I 0.02 0.01 (0-0.03) ng/mL Urine 10/08/16 Range/Units 05:12 Urine Color Yellow (Yellow) Urine Clarity Clear (Clear) Urine pH 6.0 (5.0-8.0) pH Units Ur Specific [place] 1.010 (1.010-1.025) Urine Protein 30 H (Neg-Trace) mg/dL Urine Glucose (UA) Normal (Normal) mg/dL - ABG Interpretation ABG results: PT/INR, D-dimer PT 14.0 Seconds (9.4-12.1) H 10/08/16 08:15 Consult Discharge Plan - Plan [facility]errals: [facility] [Primary Care Provider[facility] -
[2016-10-08] MEDS ORDERED: traZODone 50 MG TABLET PO SCH (21:00)
[2016-10-08] MEDS ORDERED: Insulin LISPRO 300 UNITS/3 ML VIAL SQ SCH (21:00)
[2016-10-09] MEDS: *HR* Heparin 5,000 UNIT/ML VIAL SQ SCH ×2 (01:24→08:37)
[2016-10-09 04:52] LABS: Calcium 8.7 mg/dL (8.6-10.8); Potassium 4.3 mEq/L (3.5-4.5)
[2016-10-09 04:53] LABS: Basophils % 0.1 %; Eosinophils # 0.1 K/mcL (0.0-0.6); Eosinophils % 1.4 %; Hematocrit 28.1 % (37.5-50.1); Immature Granulocytes % 0.4 % (0-4); Lymphocytes # 2.3 K/mcL (0.6-4.6); Lymphocytes % 28.9 %; Mean Corpuscular HGB Conc 28.5 g/dL (31.6-35.5); Mean Corpuscular Hemoglobin 23.1 pg (28.0-33.3); Mean Platelet Volume 9.7 fL (9.4-12.4); Monocytes # 0.7 K/mcL (0.0-1.3); Monocytes % 9.3 %; Neutrophils # 4.8 K/mcL (1.6-8.9); Platelet Count 284 K/mcL (140-400); Red Blood Count 3.47 M/mcL (4.19-5.50); Red Cell Distribution Width 18.2 % (11.5-14.5); Segmented Neutrophils % 59.9 %
[2016-10-09] MEDS: Famotidine 20 MG/2 ML VIAL IVP SCH (05:36)
[2016-10-09 06:34] VITALS: BP 155/80
[2016-10-09 07:24] LABS: Hypochromasia Present (Not Present); Platelet Estimate Normal (Normal)
[2016-10-09] MEDS ORDERED: Insulin LISPRO 300 UNITS/3 ML VIAL SQ SCH (07:30)
[2016-10-09] MEDS: Furosemide 40 MG/4 ML VIAL IVP SCH (08:37)
[2016-10-09] MEDS: levoFLOXacin 500 MG TABLET PO SCH (08:38)
[2016-10-09] MEDS: Gabapentin 300 MG CAPSULE PO SCH (08:38)
[2016-10-09] MEDS: Aspirin 81 MG TAB.CHEW PO SCH (08:38)
[2016-10-09] MEDS: Insulin LISPRO 300 UNITS/3 ML VIAL SQ SCH (08:39)
--- NOTE | 2016-10-09 08:42 | Electrocardiograph Report ---
[address] [address] Test Date: 2016-10-08 Pat Name: Manpreet Mccoy Department: 103 Room: 3B Gender: M Development Analyst: : 1955 Requested By: Ajay Vázquez Order Number: [id number] Reading MD: Horacio James MD Measurements Intervals [place]son Rate: 89 P: 26 MS: 168 QRS: 14 QRSD: 92 T: 33 QT: 376 QTc: 422 Interpretive Statements SINUS RHYTHM BASELINE ARTIFACT Electronically Signed On 10-09-2016 8:41:02 EDT by Horacio James MD
[2016-10-09] MEDS: Insulin DETEMIR 100 UNIT/ML X5UNITS SQ SCH (08:54)
[2016-10-09] MEDS: Acetaminophen 325 MG TABLET PO PRN (09:13)
--- NOTE | 2016-10-09 09:44 | Discharge Summary ---
Date of Encounter: 10/09/16 Time of Encounter: 09:00 - Discharge Diagnosis (1) CHF exacerbation Priority: Primary Status: Resolved Comments: Patient denies shortness of breath above his normal day of discharge. Qualifiers: Congestive heart failure type: diastolic Qualified Code(s): I50.33 - Acute on chronic diastolic (congestive) heart failure (2) Pulmonary edema Priority: Primary Status: Resolved Qualifiers: Chronicity: acute Qualified Code(s): J81.0 - Acute pulmonary edema (3) Cellulitis of scrotum Priority: Secondary Status: Chronic Comments: Stable with slight improvement in his edema while admitted. Continue current plan of care; followup outpatient. Urinalysis negative. (4) Acute and chronic respiratory failure Priority: Secondary Status: Chronic Comments: Patient is on 2-3 L per nasal cannula at home. Currently on 2 L per nasal cannula. Patient denied shortness of breath above his normal. Followup outpatient. (5) Diabetes mellitus type 2 in obese Priority: Secondary Status: Chronic Comments: Relatively well controlled with an A1c of 7.5%. Follow-up outpatient (6) CKD (chronic kidney disease) stage 3, GFR 30-59 ml/min Priority: Secondary Status: Chronic Comments: Currently at the high end of his normal and remained stable with diuresis. (7) DVT prophylaxis Priority: Primary Status: Acute Comments: Subcutaneous heparin while admitted (8) Chronic anemia Priority: Secondary Status: Chronic Comments: Remained stable and consistent with his baseline while admitted. Patient due for his weekly dose of darbepoetin kyle. [facility], [facility] was mailed the day prior to discharge and he should receive at home soon, will defer to outpatient treatment. (9) CHANELL (obstructive sleep apnea) Priority: Secondary Status: Chronic Comments: Compliant with CPAP, followed by outpatient (10) Morbid obesity with BMI of 60.0-69.9, adult Priority: Secondary Status: Chronic - Discharge Medications Home Medications: Acetaminophen [Tylenol] 650 mg PO Q8H PRN 04/29/16 [History] Aspirin 81 mg PO DAILY 04/29/16 [History] Atorvastatin [Lipitor] 40 mg PO HS 04/29/16 [History] DULoxetine [Cymbalta] 30 mg PO DAILY PRN 04/29/16 [History] Furosemide [Lasix] 40 mg PO DAILY 04/29/16 [History] Gabapentin [Neurontin] 600 mg PO BID 04/29/16 [History] Insulin ASPART [NovoLOG] 15 unit SQ TID PRN 04/29/16 [History] Insulin Glargine [Lantus] 48 unit SQ BID 04/29/16 [History] Lisinopril [Zestril] 10 mg PO DAILY PRN 04/29/16 [History] Trazodone HCl 100 mg PO HS 04/29/16 [History] levoFLOXacin [Levaquin] 500 mg PO DAILY #14 tablet 09/24/16 [Rx] Albuterol Neb [Proventil Neb] 2.5 mg IH Q4HR PRN 10/08/16 [History] Cholecalciferol (D-3) [Vitamin D] 1,000 unit PO DAILY 10/08/16 [History] OxyCODONE/APAP 5/325 [Percocet 5/325 MG] 1 tab PO Q6HR PRN 10/08/16 [History] Oxygen 2 - 3 l NS AD 10/08/16 [History] Allergies/Adverse Reactions: Allergies No Known Allergies Allergy (Verified 09/24/16 09:32) Date of admission: 10/08/16 04:42 [facility] Consults: 10/08/16 03:20 Consult to Physical Therapy [CONS] Routine Comment: Evaluate, develop and implement POC Reason for Consult: pt eval Consult to [facility] [employer] [CONS] Routine Reason for SW Consult: D/C PLANNING Discharging clinician: Myra Billy Anticipated date of discharge: 10/09/16 (refuses PT, states is being setup outpatient per [place]) - Patient Status Disposition: Home, Self-Care Condition: Good Functional capacity at discharge: uses cane/walker Overall status at discharge: patient is back to baseline - Discharge Instructions Follow Up With: [facility]Primary Care Provider[facility] - 10/14/16 2:15 pm Additional Instructions: Follow-up with primary care provider as scheduled - Diet and Activity Activity: increase activity as tolerated Diet: diabetic diet, low fat, low cholesterol (fluid restriction 1.5L per day), low salt diet Hospital course: Mr. Mccoy is a 60 year old male with past medical history of diastolic heart failure, chronic kidney disease stage III, diabetes, hypertension, chronic anemia, CHANELL on CPAP, hyperlipidemia, morbid obesity. Patient presented to the emergency department chief complaint of shortness of breath and palpitations that started approximately 1 hour prior to arrival. Patient stating his symptoms were an acute onset. He stated that his heart began to race initially and then he developed shortness of breath that was aggravated with exertion and did not have alleviating factors. Patient denied chest pain, lightheadedness, dizziness, cough, abdominal pain, nausea vomiting or diarrhea. Patient has chronic pedal edema which she states was stable. The patient was also being treated outpatient at the [place] for scrotal cellulitis with by mouth Levaquin. Workup in the emergency department revealing chest x-ray consistent with pulmonary edema. Patient was admitted to the hospitalist service for further evaluation and management of CHF exacerbation. Patient was successfully diuresed with IV furosemide over the course of his 2 night admission. His renal function remains stable. His edema to his scrotum continued to improve while admitted and has consistently improved over the past 3-1/2 weeks. Urinalysis was negative. He did not have any increased need for supplemental oxygenation and denies shortness of breath above his normal day of discharge. He readily admits to missing one of his doses of Lasix at home just prior to the onset of his symptoms. He was educated on taking his medication and on a fluid and sodium restricted diet. He was discharged home in stable condition with close outpatient follow-up recommended. Of note, he was offered physical therapy evaluation but he declined stating that the [place] was setting up outpatient physical therapy. ITS Impressions Chest X-Ray 10/08/16 01:37 IMPRESSION: Pulmonary edema. D/ / Miguel Monroe MD / Miguel Monroe MD Interpreting Provider: Miguel Monroe MD - Time Spent with Patient Total time spent providing and/or coordinating discharge services: - Constitutional Vitals: Temp Pulse Resp BP Pulse Ox 98.2 F 67 15 155/80 94 10/09/16 06:33 10/09/16 06:33 10/09/16 06:33 10/09/16 06:33 10/09/16 06:33 General appearance: Present: A&O X 3, morbidly obese, pleasant, no acute distress, answers questions appropriately - Head Head exam: Present: atraumatic, normocephalic - Eye Eye exam: Present: PERRL, conjuntiva pink, sclera anicteric Pupils: Present: PERRL - Neck Neck exam general surgery: Present: supple, trachea midline. Absent: lymphadenopathy - Respiratory Respiratory exam: Present: decreased breath sounds (2/2 body habitus). Absent: accessory muscle use, rales, respiratory distress, rhonchi, wheezes - Cardiovascular Cardiovascular exam: Present: RRR, +S1, +S2. Absent: diastolic murmur, gallop, rubs, systolic murmur - GI/Abdominal GI/Abdominal exam: Present: normal bowel sounds, soft, no peritoneal signs. Absent: distended, tenderness - exam: Present: scrotal swelling, testicular tenderness. Absent: normal inspection External exam: Present: swelling Additional comments: multiple lesions- no abscesses - Extremities Exam Extremities exam: Present: pedal edema (chronic), warm, radial pulses palpable and symetrical. Absent: calf tenderness, cyanotic - Neurological Exam Neurological exam: Present: alert, CN II-XII intact, oriented X3, no focal deficits, strengths equal and symetr throughout. Absent: pronater drift, facial droop, speech deficit - Skin Skin exam: Present: dry, intact, pallor, warm
== END 2016-10-09 10:43 | disposition home or self-care (01) | DRG 291 ==
LOC: 3BNU 01:19 → EMEROO 01:19 → 3BNU 03:40 → SUATTDRO 04:42
PROVIDERS: ADMIT Family Medicine; ATTEND Nurse Practitioner Family

== ENCOUNTER 2016-12-27 13:07 | Observation (INO) ==
[2016-12-27 14:28] LABS: Hematocrit 24.5 % (37.5-50.1); Mean Corpuscular HGB Conc 29.8 g/dL (31.6-35.5); Mean Corpuscular Hemoglobin 22.3 pg (28.0-33.3); Mean Corpuscular Volume 74.7 fL (83.0-100.0); Mean Platelet Volume 8.6 fL (9.4-12.4); Platelet Count 303 K/mcL (140-400); Red Blood Count 3.28 M/mcL (4.19-5.50); Red Cell Distribution Width 18.6 % (11.5-14.5)
--- NOTE | 2016-12-27 14:28 | Emergency Department Note ---
Disposition Clinical Impression: Anemia Qualifiers: Anemia type: unspecified type Qualified Code(s): D64.9 - Anemia, unspecified Fatigue Qualifiers: Fatigue type: unspecified Qualified Code(s): R53.83 - Other fatigue Disposition: Admitted As Inpatient Condition: Fair [facility] [Primary Care Provider[facility] - Forms: ED Satisfaction Letter Time of Disposition: 16:04 General Adult HPI - General Chief complaint: ED Recheck/Abnormal Lab/Rx Stated complaint: Low hemaglobin Time Seen by Provider: 12/27/16 13:10 Source: patient, EMS Limitations: no limitations Nursing Notes Reviewed: Yes Vital Signs Reviewed: Yes - History of Present Illness HPI Narrative: Patient presents because the home health nurse who asked him to come here because of anemia with hemoglobin of 7.5 this morning. He does have some tiredness which is minimally more pronounced over the last several days but denies any blood in the urine or stool, bleeding of the gums, epistaxis, bruising of the skin. He has had blood transfusions in the past. No medications specifically used. Social history: Lives alone, no smoking or alcohol or drugs Pain Scale: 9 - Related Data Home Medications Medication Instructions Recorded Confirmed Acetaminophen [Tylenol] 650 mg PO Q8H PRN 04/29/16 10/08/16 Aspirin 81 mg PO DAILY 04/29/16 10/08/16 Atorvastatin [Lipitor] 40 mg PO HS 04/29/16 10/08/16 DULoxetine [Cymbalta] 30 mg PO DAILY PRN 04/29/16 10/08/16 Furosemide [Lasix] 40 mg PO DAILY 04/29/16 10/08/16 Gabapentin [Neurontin] 600 mg PO BID 04/29/16 10/08/16 Insulin ASPART [NovoLOG] 15 unit SQ TID PRN 04/29/16 10/08/16 Insulin Glargine [Lantus] 48 unit SQ BID 04/29/16 10/08/16 Lisinopril [Zestril] 10 mg PO DAILY PRN 04/29/16 10/08/16 Trazodone HCl 100 mg PO HS 04/29/16 10/08/16 Albuterol Neb [Proventil Neb] 2.5 mg IH Q4HR PRN 10/08/16 10/08/16 Cholecalciferol (D-3) [Vitamin D] 1,000 unit PO DAILY 10/08/16 10/08/16 OxyCODONE/APAP 5/325 [Percocet 1 tab PO Q6HR PRN 10/08/16 10/08/16 5/325 MG] Oxygen 2 - 3 l NS AD 10/08/16 10/08/16 Previous Rx's Medication Instructions Recorded levoFLOXacin [Levaquin] 500 mg PO DAILY #14 tablet 09/24/16 Allergies Allergy/AdvReac Type Severity Reaction Status Date / Time No Known Allergies Allergy Verified 09/24/16 09:32 Review of Systems: No blood in the urine or stool Past Medical History - Past Medical History Medical history: Reports: CHF, diabetes, hyperlipidemia, hypertension, renal disease, other Psychiatric history: Reports: no psych history - Social History Smoking Status: Never smoker Smokeless Tobacco Status: No Alcohol use: Reports: none Drug use: Reports: none Physical Exam CONSTITUTIONAL: Alert and oriented X3, well-nourished, well appearing, in no apparent distress HEAD: Normocephalic; atraumatic. EYES: PERRL, no scleral icterus. NOSE: The nose is normal in appearance without rhinorrhea RESP: Normal chest excursion with respiration; breath sounds clear and equal bilaterally; no wheezes, rhonchi, or rales CARD: Regular rhythm, without murmurs, rub or gallop ABD: Non-distended; non-tender, soft,without rigidity, rebound or guarding SKIN: Normal for age and race; warm and dry; no apparent lesions - General Limitations: no limitations General appearance: alert Course Vital Signs Temperature 98.4 F 12/27/16 13:11 Pulse Rate 77 12/27/16 13:11 Respiratory Rate 18 12/27/16 13:11 Blood Pressure 154/66 12/27/16 13:11 O2 Sat by Pulse Oximetry 99 12/27/16 13:11 Temperature 98.4 F 12/27/16 13:11 Pulse Rate 77 12/27/16 13:11 Respiratory Rate 18 12/27/16 13:11 Blood Pressure 154/66 12/27/16 13:11 O2 Sat by Pulse Oximetry 99 12/27/16 13:11 Oxygen Delivery Oxygen Delivery Room Air Medical Decision Making - MDM Narrative Medical decision making narrative: CBC will be checked. The patient does have chronic anemia and I did review the past records. At this time is fairly asymptomatic. He is bright and alert and animated and in no distress. Is not tachypnic or tachycardic. 1430 I did discuss with the patient and he is comfortable for the blood transfusion. Does understand the risks of blood transfusion would like to proceed. All blood transfusion I would like to proceed. I did see him again just a few minutes ago. He is comfortable with the admission plan. 1603 - Lab Data Result diagrams: 12/27/16 14:18 Lab Results 12/27/16 12/27/16 Range/Units 14:18 14:18 WBC 12.0 H (4.3-11.1) K/mcL RBC 3.28 L (4.19-5.50) M/mcL Hgb 7.3 L (12.9-16.9) g/dL Hct 24.5 L (37.5-50.1) % MCV 74.7 L (83.0-100.0) fL MCH 22.3 L (28.0-33.3) pg MCHC 29.8 L (31.6-35.5) g/dL RDW 18.6 H (11.5-14.5) % Plt Count 303 (140-400) K/mcL MPV 8.6 L (9.4-12.4) fL Blood Type O NEGATIVE Antibody Screen NEGATIVE Crossmatch See Detail
[2016-12-27 14:40] LABS: Hemoglobin 7.3 g/dL (12.9-16.9)
[2016-12-27] MEDS ORDERED: 0.9 % Sodium Chloride 250 ML ONE ×2 (15:59→20:43)
[2016-12-27] MEDS ORDERED: *HR* OxyCODONE/APAP 5/325 TABLET PO ONE (16:09)
[2016-12-27] MEDS ORDERED: Naloxone 0.4 MG/ML INJ IVP PRN (17:47)
[2016-12-27] MEDS ORDERED: Acetaminophen 325 MG TABLET PO PRN (17:47)
[2016-12-27] MEDS ORDERED: *HR* OxyCODONE/APAP 5/325 TABLET PO PRN (17:50)
[2016-12-27] MEDS ORDERED: Furosemide 20 MG/2 ML VIAL IVP ONE (17:53)
[2016-12-27 18:42] LABS: Bilirubin,Urine Negative (Negative); Blood,Urine Large (Negative); Clarity,Urine Clear (Clear); Color,Urine Yellow (Yellow); Glucose,Urine (UA) Normal (Normal); Ketones,Urine Negative (Negative); Leukocyte Esterase,Urine Trace (Negative); Nitrite,Urine Negative (Negative); Protein,Urine 30 mg/dL (Neg-Trace); Specific Gravity,Urine 1.015 (1.010-1.025); Urobilinogen,Urine Normal (Normal)
[2016-12-27] MEDS ORDERED: Dextrose Gel 15 GM PO PRN ×2 (18:54)
[2016-12-27] MEDS ORDERED: *HR* Dextrose 50 % in Water (Syg) 50 ML SYRINGE IVP PRN (18:54)
[2016-12-27] MEDS ORDERED: D5% in Water 1,000 ML IVC PRN (18:54)
[2016-12-27 18:58] LABS: Bacteria,Urine None Seen per hpf (None-Few); Hyaline Casts,Urine None Seen per lpf (None-Few); RBC,Urine 30-50 per hpf (0-3); Squamous Epithelial Cell,Urine Many per lpf (None-Few)
--- NOTE | 2016-12-27 19:21 | Internal Med History&Physical ---
<Gladys Andrews M - Last Filed: 12/27/16 20:13> Date of Encounter: 12/27/16 Time of Encounter: 19:19 Assessment and Plan (1) Anemia Current visit: Yes Status: Acute Hgb of 7.3 today. Patient reporting fatigue. Patient has documented chronic anemia and takes darbepoietin injections weekly. He reports "thalassemia", but did not find that officially documented. He denies any black or bloody stools or other signs of bleeding. 2 units of Packed red blood cells ordered. Check CBC tomorrow. Consult to Heme/onc Qualifiers: Anemia type: iron deficiency Iron deficiency anemia type: unspecified iron deficiency Qualified Code(s): D50.9 - Iron deficiency anemia, unspecified (2) CHF (congestive heart failure) Current visit: Yes Status: Chronic Patient with history of CHF, on 80mg of lasix daily. Patient appears euvolemic on exam. Will give 20mg IVP lasix once after blood transfusions. Cardiac diet with 1.5L fluid restriction. daily weights, I/Os. Continue home dose of PO lasix. Qualifiers: Congestive heart failure type: unspecified congestive heart failure type Congestive heart failure chronicity: chronic Qualified Code(s): I50.9 - Heart failure, unspecified (3) DM II (diabetes mellitus, type II), controlled Current visit: Yes Status: Chronic Check Hgb A1c diabetic diet Check blood sugars ACHS Give Levemir 40u BID (home dose is 48u) Give short acting insulin 10u TID with meals plus sliding scale ACHS hypoglycemic protocol. Qualifiers: Diabetes mellitus complication status: with unspecified complications Diabetes mellitus care home insulin use: with care home use Qualified Code(s) : E11.8 - Type 2 diabetes mellitus with unspecified complications; Z79.4 - skilled nursing (current) use of insulin (4) Leukocytosis Current visit: Yes Status: Acute WBC elevated at 12.0. Patient denies fever, chills, sweats, cough, dysuria or skin issues. Afebrile. Check CXR and UA. Recheck CBC tomorrow. Qualifiers: Leukocytosis type: unspecified Qualified Code(s): D72.829 - Elevated white blood cell count, unspecified (5) Sleep apnea Current visit: Yes Status: Acute Respiratory therapy consulted for CPAP. Qualifiers: Sleep apnea type: unspecified type Qualified Code(s): G47.30 - Sleep apnea , unspecified (6) DVT prophylaxis Current visit: Yes Status: Acute sequential compression devices. Internal Medicine - H&P: HPI Chief complaint: anemia History of present illness: Mr. Mccoy is a 61 year old male Past Med Surg Social Fam HX - Past Medical History Medical history: CHF, diabetes, hyperlipidemia, hypertension, renal disease, other (chronic anemai) Psychiatric history: no psych history - Past Surgical History Surgical History: cholecystectomy - Social History Smoking Status: Never smoker Smokeless Tobacco Status: No Alcohol use: none Drug use: none - Family History Mother History Unknown: Yes Father History Unknown: Yes Internal Medicine - H&P: Meds Acetaminophen [Tylenol] 325 mg PO Q8H PRN 04/29/16 [History] Aspirin 81 mg PO DAILY 04/29/16 [History] Atorvastatin [Lipitor] 40 mg PO HS 04/29/16 [History] DULoxetine [Cymbalta] 90 mg PO DAILY PRN 04/29/16 [History] Furosemide [Lasix] 80 mg PO DAILY 04/29/16 [History] Gabapentin [Neurontin] 600 mg PO BID 04/29/16 [History] Insulin ASPART [NovoLOG] 15 unit SQ TID PRN 04/29/16 [History] Insulin Glargine [Lantus] 48 unit SQ BID 04/29/16 [History] Lisinopril [Zestril] 10 mg PO DAILY 04/29/16 [History] Trazodone HCl 50 mg PO HS 04/29/16 [History] Cholecalciferol (D-3) [Vitamin D] 2,000 unit PO DAILY 10/08/16 [History] OxyCODONE/APAP 5/325 [Percocet 5/325 MG] 1 tab PO Q6HR PRN 10/08/16 [History] NIFEdipine [Nifedipine ER] 30 mg PO DAILY 12/27/16 [History] metOLazone [Zaroxolyn] 2.5 mg PO Q48H 12/27/16 [History] 3 Allergy/AdvReac Type Severity Reaction Status Date / Time No Known Allergies Allergy Verified 09/24/16 09:32 All Systems PM: A 10-system review of systems was performed and is negative for pertinent findings except as documented above in the HPI. - Constitutional Constitutional: fatigue, no chills, no fever(s), no night sweats - EENT Eyes: no change in vision, no discharge, no pain, no photophobia Ears: no ear discharge, no ear pain, no tinnitus Nose, mouth and throat: no dysphagia, no nasal discharge, no neck pain, no sore throat - Cardiovascular Cardiovascular ROS IM: no chest pain, no diaphoresis, no dyspnea, no lightheadedness, no palpitations, no syncope - Respiratory Respiratory: no cough, no dyspnea, no wheezing, no excessive phlegm production - Gastrointestinal Gastrointestinal: no abdominal pain, no diarrhea, no hematemesis, no hematochezia, no melena, no nausea, no vomiting - Musculoskeletal Musculoskeletal ROS IM: no numbness, no tingling - Integumentary Integumentary IM: no rash, no unusual bruising - Neurological Neurological ROS: no confusion, no convulsions, no focal weakness, no numbness, no tingling, no tremor(s) - Hematologic/Lymphatic Hematologic/Lymphatic: no easy bruising - Constitutional Vitals: Temp Pulse Resp BP Pulse Ox 98.2 F 85 16 127/73 95 12/27/16 17:48 12/27/16 17:48 12/27/16 17:48 12/27/16 17:48 12/27/16 17:48 General appearance: Present: A&O X 3, morbidly obese, pleasant, no acute distress - Head Head exam: Present: atraumatic, normocephalic - Eye Eye exam: Present: PERRL, conjuntiva pink, sclera anicteric Pupils: Present: PERRL - Neck Neck exam general surgery: Present: supple, trachea midline. Absent: lymphadenopathy - Respiratory Respiratory exam: Present: CTAB. Absent: accessory muscle use, rales, rhonchi, wheezes - Cardiovascular Cardiovascular exam: Present: RRR, +S1, +S2. Absent: diastolic murmur, gallop, rubs, systolic murmur - GI/Abdominal GI/Abdominal exam: Present: normal bowel sounds, soft, no peritoneal signs. Absent: distended, tenderness - Extremities Exam Extremities exam: Present: pedal edema (BLE chronic), warm, radial pulses palpable and symmetrical. Absent: calf tenderness, cyanotic - Neurological Exam Neurological exam: Present: CN II-XII intact, oriented X3, no focal deficits. Absent: pronater drift, facial droop, speech deficit - Skin Skin exam: Present: dry, intact Internal Med - H&P Results - Labs CBC & Chem 7: 12/27/16 14:18 Labs: Urine 12/27/16 Range/Units 18:33 Urine Color Yellow (Yellow) Urine Clarity Clear (Clear) Urine pH 6.0 (5.0-8.0) pH Units Ur Specific Lissie 1.015 (1.010-1.025) Urine Protein 30 H (Neg-Trace) mg/dL Urine Glucose (UA) Normal (Normal) mg/dL <Jake Pablo - Last Filed: 12/28/16 01:49> Date of Encounter: 12/28/16 Internal Medicine - H&P: HPI History of present illness: Mr. Mccoy is a 61 year old male All Systems PM: A 10-system review of systems was performed and is negative for pertinent findings except as documented above in the HPI. - Constitutional Vitals: Temp Pulse Resp BP Pulse Ox 98.7 F 80 20 143/71 95 12/28/16 01:28 12/28/16 01:28 12/28/16 01:28 12/28/16 01:28 12/28/16 01:28 Internal Med - H&P Results - Labs CBC & Chem 7: 12/27/16 14:18 Labs: Urine 12/27/16 Range/Units 18:33 Urine Color Yellow (Yellow) Urine Clarity Clear (Clear) Urine pH 6.0 (5.0-8.0) pH Units Ur Specific Lissie 1.015 (1.010-1.025) Urine Protein 30 H (Neg-Trace) mg/dL Urine Glucose (UA) Normal (Normal) mg/dL - Impressions ITS Impressions Chest X-Ray 12/27/16 17:53 IMPRESSION: No acute disease. D/ / Miguel Monroe MD / Miguel Monroe MD Interpreting Provider: Miguel Monroe MD - Attending Attestation I examined this patient and my medical decision-making was reviewed with the BELT OPERATOR. I agree with the documented findings, disposition and treatment plan as described except to the extent set forth below. Patient is a 61-year-old male with past medical history of CHF, diabetes, hyperlipidemia, hypertension, chronic kidney disease and chronic anemia. He presents to the ED for anemia. He was found to have a low H&H done on routine labs. Patient complains of mild fatigue and generalized weakness. Denies any blood in stool or urine. No active bleeding. Patient apparently has a history of thalassemia. There is no record of this at this time. Patient has received 2 units PRBC. Oncology consult is pending. We will repeat labs in the morning. Patient also has a history of CHF. He will be on fluid restriction, daily weights and I's and O's. Patient has no other acute complaints. Patient did have a transfusion reaction and he was given Tylenol and Benadryl and Solu- Medrol. Heart rate 80, blood pressure 143/71, O2 sat 95% on room air. Heart S1-S2 positive. Lungs bilateral good air entry no wheeze or crackle. Abdomen soft nontender, obese. Extremities pulses regular, bilateral lower leg 4+ edema with stasis dermatitis
[2016-12-27] MEDS ORDERED: Insulin LISPRO 300 UNITS/3 ML VIAL SQ SCH (21:00)
[2016-12-27] MEDS ORDERED: traZODone 50 MG TABLET PO SCH (21:00)
[2016-12-27] MEDS: Gabapentin 300 MG CAPSULE PO SCH (21:04)
[2016-12-27] MEDS: Insulin DETEMIR 100 UNIT/ML X5UNITS SQ SCH (21:05)
[2016-12-27] MEDS ORDERED: methylPREDNISolone 125 MG/2 ML VIAL IVP ONE (22:35)
[2016-12-28 03:24] LABS: Clarity,Urine Clear (Clear); Color,Urine Yellow (Yellow)
[2016-12-28 03:25] LABS: Bilirubin,Urine Negative (Negative); Blood,Urine Moderate (Negative); Glucose,Urine (UA) Normal (Normal); Ketones,Urine Negative (Negative); Leukocyte Esterase,Urine Trace (Negative); Nitrite,Urine Negative (Negative); PH,Urine 5.5 pH Units (5.0-8.0); Protein,Urine 30 mg/dL (Neg-Trace); Specific Gravity,Urine 1.015 (1.010-1.025); Urobilinogen,Urine Normal (Normal)
[2016-12-28 03:43] LABS: Basophils % 0.2 %; Eosinophils % 0.1 %; Hematocrit 27.5 % (37.5-50.1); Hemoglobin 8.2 g/dL (12.9-16.9); Immature Granulocytes % 0.4 % (0-4); Immature Platelets 1.1 % (1.1-6.1); Lymphocytes # 0.5 K/mcL (0.6-4.6); Lymphocytes % 3.3 %; Mean Corpuscular HGB Conc 29.8 g/dL (31.6-35.5); Mean Corpuscular Hemoglobin 22.5 pg (28.0-33.3); Mean Corpuscular Volume 75.3 fL (83.0-100.0); Mean Platelet Volume 8.9 fL (9.4-12.4); Monocytes # 0.3 K/mcL (0.0-1.3); Monocytes % 2.1 %; Neutrophils # 14.9 K/mcL (1.6-8.9); Platelet Count 336 K/mcL (140-400); Red Blood Count 3.65 M/mcL (4.19-5.50); Red Cell Distribution Width 18.4 % (11.5-14.5); Segmented Neutrophils % 93.9 %
[2016-12-28 03:50] LABS: RBC,Urine 0-3 per hpf (0-3); Squamous Epithelial Cell,Urine Few per lpf (None-Few); WBC,Urine 0-3 per hpf (0-3)
[2016-12-28 03:51] LABS: Bacteria,Urine Few per hpf (None-Few); Hyaline Casts,Urine None Seen per lpf (None-Few)
[2016-12-28 03:56] LABS: Calcium 9.4 mg/dL (8.6-10.8); Potassium 4.6 mEq/L (3.5-4.5)
[2016-12-28] MEDS ORDERED: NIFEdipine XL (24 HR) 30 MG TAB.ER.24 PO SCH (09:00)
[2016-12-28] MEDS ORDERED: Cholecalciferol (D-3) 1,000 UNIT TABLET PO SCH (09:00)
[2016-12-28] MEDS ORDERED: Aspirin 81 MG TAB.CHEW PO SCH (09:00)
[2016-12-28] MEDS ORDERED: Furosemide 40 MG TABLET PO SCH (09:00)
--- NOTE | 2016-12-28 10:13 | Discharge Summary ---
Date of Encounter: 12/28/16 Time of Encounter: 09:05 - Discharge Diagnosis (1) Chronic anemia Priority: Primary Status: Chronic Comments: Pt reports chronic anemia, states that he was diagnosed with Thalassemia. He is a pt at the [facility] and takes Darbepoietin injections weekly. He reports fatigue recently and states that he was sent by a home health aide for increased fatigue. He denies dark or tarry stools, karin hematuria, bruising, or petechiae. He received 2 units of blood and during 2nd unit he had areaction with fever, chills. Hbg 8.2 today. Pt states that he wants to go home. Pt will be seen by hematology/oncology and will follow up in the office. (2) Morbid obesity Priority: Secondary Status: Chronic Comments: Pt reports that he has lost about 40lbs intentionally. States that he is eating better and trying to exercise. Continue lifestyle modifications. (3) CKD (chronic kidney disease) stage 3, GFR 30-59 ml/min Priority: Secondary Status: Chronic Comments: Sr Cr 2.04, GFR 41, appears to be pts baseline. Avoid nephrotoxins. pt follows up at the [facility]. (4) CHANELL (obstructive sleep apnea) Priority: Secondary Status: Chronic Comments: Pt wears CPAP nightly (5) DM II (diabetes mellitus, type II), controlled Priority: Secondary Status: Chronic Comments: A1c 7.5% in September. Pt states that he is eating better, exercising, and losing weight. Continue home medications and regimen. Follow with PCP. Qualifiers: Diabetes mellitus complication status: with unspecified complications Diabetes mellitus penitentiary insulin use: with penitentiary use Qualified Code(s) : E11.8 - Type 2 diabetes mellitus with unspecified complications; Z79.4 - terminal worker (current) use of insulin (6) Leukocytosis Priority: Secondary Status: Acute Comments: Leukocytosis increased this a.m, most likely due to UTI and/or transfusion reaction/treatment. Pt had blood transfusion with reaction, fever, chills, rigors. He was treated with Benadryl, Solumedrol, and Lasix. He is asymptomatic at this time and afebrile. Pt will be sent home with rx for UTI. Qualifiers: Leukocytosis type: unspecified Qualified Code(s): D72.829 - Elevated white blood cell count, unspecified (7) Sleep apnea Priority: Secondary Status: Chronic Comments: Pt wears CPAP at home nightly. Qualifiers: Sleep apnea type: unspecified type Qualified Code(s): G47.30 - Sleep apnea , unspecified (8) CHF (congestive heart failure) Priority: Secondary Status: Chronic Comments: Pt with history of CHF. LV function normal per prior cardiology note, unable to locate actual report. Pt is euvolemic at this time, lungs are clear, no peripheral edema beyond normal, no respiratory distress. Continue home dose of lasix. Qualifiers: Congestive heart failure type: unspecified congestive heart failure type Congestive heart failure chronicity: chronic Qualified Code(s): I50.9 - Heart failure, unspecified (9) DVT prophylaxis Priority: Secondary Status: Acute Comments: SCDs due to anemia. - Discharge Medications Prescriptions: Nitrofurantoin Monohyd/M-Cryst [Macrobid 100 mg Capsule] 100 mg PO BID #10 capsule Home Medications: Acetaminophen [Tylenol] 325 mg PO Q8H PRN 04/29/16 [History] Aspirin 81 mg PO DAILY 04/29/16 [History] Atorvastatin [Lipitor] 40 mg PO HS 04/29/16 [History] DULoxetine [Cymbalta] 90 mg PO DAILY PRN 04/29/16 [History] Furosemide [Lasix] 80 mg PO DAILY 04/29/16 [History] Gabapentin [Neurontin] 600 mg PO BID 04/29/16 [History] Insulin ASPART [NovoLOG] 15 unit SQ TID PRN 04/29/16 [History] Insulin Glargine [Lantus] 48 unit SQ BID 04/29/16 [History] Lisinopril [Zestril] 10 mg PO DAILY 04/29/16 [History] Trazodone HCl 50 mg PO HS 04/29/16 [History] Cholecalciferol (D-3) [Vitamin D] 2,000 unit PO DAILY 10/08/16 [History] OxyCODONE/APAP 5/325 [Percocet 5/325 MG] 1 tab PO Q6HR PRN 10/08/16 [History] NIFEdipine [Nifedipine ER] 30 mg PO DAILY 12/27/16 [History] metOLazone [Zaroxolyn] 2.5 mg PO Q48H 12/27/16 [History] Nitrofurantoin Monohyd/M-Cryst [Macrobid 100 mg Capsule] 100 mg PO BID #10 capsule 12/28/16 [Rx] Allergies/Adverse Reactions: 3 Allergy/AdvReac Type Severity Reaction Status Date / Time No Known Allergies Allergy Verified 09/24/16 09:32 Date of admission: 12/27/16 15:46 Primary care physician: [facility] Consults: 12/27/16 18:02 Consult to Calciner Operator [CONS] Routine Reason for SW Consult: PRN O2[facility] independent apartment 12/27/16 20:14 Consult to Oncology Hematology [CONS] Routine Consulting Provider: Oncology [facility] Reason for Consult: Patient with chronic anemia, reports "thalassemia". On darbepoietin weekly Call Completed: No Discharging clinician: Hallie Sanford Anticipated date of discharge: 12/28/16 - Patient Status Disposition: Home, Self-Care Condition: Good Functional capacity at discharge: uses cane/walker - Discharge Instructions Follow Up With: [facility] [Primary Care Provider] - Additional Instructions: Follow up with your physician at the [facility] Follow up with hematology as scheduled. Take your antibiotic as directed and take them all until they are gone. Resume your normal home medications and activities as tolerated. Return to the ER as needed for any other problems or concerns or if your symptoms return or worsen. - Diet and Activity Activity: increase activity as tolerated Diet: diabetic diet, low fat, low cholesterol, low salt diet, other (Fluid restriction diet. ) Hospital course: Mr. Mccoy is a 61 year old male with pmh of CHF, anemia, CHANELL, DM, CKD III, morbid obesity. Pt presented to the ED with c/o fatigue. He was sent by home health nurse who stated that he appeared more tired than normal. Pt was given transfusion of 2 units of PRBCs for Hgb 7.5. Pt denies hematuria, bruising, dark tarry stools or melena. During second unit, pt had febrile nonhemolytic reaction with fever, chills, and rigors. He was treated with benadryl, solumedrol, and lasix. He is asymptomatic today and states that he wants to go home and wants no further treatment. He was seen by hematology oncology and will be seen in the office, no other testing done at this time due to transfusion. Pt states that he has lost about 40lbs intentionally "because I don't want to ." He is adherent to his fluid restriction and medications and wears his CPAP nightly. Hgb is 8.2 today, renal function appears to be at his baseline. He is afebrile and has no tachycardia or tachypnea. He states that he feels better and is back to his baseline. Pt is ready for discharge. - Time Spent with Patient Total time spent providing and/or coordinating discharge services: Less than 30 minutes - Constitutional Vitals: Temp Pulse Resp BP Pulse Ox 98.0 F 79 16 122/57 97 12/28/16 07:11 12/28/16 07:11 12/28/16 07:11 12/28/16 07:11 12/28/16 07:11 General appearance: Present: A&O X 3, morbidly obese, pleasant, no acute distress, answers questions appropriately - Head Head exam: Present: atraumatic, normal inspection, normocephalic - Eye Eye exam: Present: conjuntiva pink, sclera anicteric - Neck Neck exam general surgery: Present: supple, trachea midline. Absent: lymphadenopathy - Respiratory Respiratory exam: Present: decreased breath sounds, CTAB. Absent: accessory muscle use, rales, respiratory distress, rhonchi, wheezes - Cardiovascular Cardiovascular exam: Present: RRR, +S1, +S2. Absent: diastolic murmur, gallop, rubs, systolic murmur - GI/Abdominal GI/Abdominal exam: Present: distended, normal bowel sounds, soft, no peritoneal signs. Absent: tenderness - Extremities Exam Extremities exam: Present: normal capillary refill, warm, radial pulses palpable and symmetrical. Absent: calf tenderness, cyanotic, pedal edema - Neurological Exam Neurological exam: Present: alert, oriented X3, no focal deficits. Absent: facial droop, speech deficit - Skin Skin exam: Present: dry, intact, normal color, warm. Absent: rash
[2016-12-28] MEDS: Insulin LISPRO 300 UNITS/3 ML VIAL SQ SCH ×4 (10:36→12:28)
[2016-12-28] MEDS: Insulin DETEMIR 100 UNIT/ML X5UNITS SQ SCH (10:43)
[2016-12-28] MEDS: Gabapentin 300 MG CAPSULE PO SCH (10:48)
[2016-12-28 11:11] VITALS: BP 156/84
[2016-12-28 11:43] LABS: Immature Reticulocyte % 33.5 % (11.0-38.0); Retculocyte # 0.08 M/mcL (0.05-0.10); Reticulocyte % 2.1 % (1.6-2.8)
--- NOTE | 2016-12-28 12:01 | Oncology Inp Consult Note ---
Date of Encounter: 12/28/16 Time of Encounter: 09:30 Assessment and Plan (1) Anemia Status: Acute Assessment and plan: This gentleman has a microcytic hypochromic anemia. His history is consistent with thalassemia and OS. In addition, he has stage III chronic kidney disease which is likely contributing. His normal hemoglobin ranges between 7 and 8. I informed the patient I would not seed with blood transfusion was a single was less than 7 or he had cardiopulmonary symptomatology. The more he receives blood transfusions, the more he is at risk for alloimmunization and risk for transfusion reaction. I encouraged him to continue with his erythropoietin at home. We may have to perform dose adjustment. I will schedule him follow-up in my office in the near future. A thorough anemia evaluation has been obtained today including evaluation for nutritional deficiencies of B12 and iron , we will look for paraproteinemia with an SPEP and serum free light chain. Also try to identify the nature of his thalassemia with a hemoglobin electrophoresis. Baseline thyroid studies were also obtained. It was a pleasure to care for this gentleman. He may be discharged from my perspective. Qualifiers: Anemia type: iron deficiency Iron deficiency anemia type: unspecified iron deficiency Qualified Code(s): D50.9 - Iron deficiency anemia, unspecified - Data of Consult Requesting Physician: Hallie Sanford CNP Primary Care Provider: PCP MD - Consult Narrative History of present illness: Mr. Mccoy is a 61 year old male with a history of presumed thalassemia NOS as well as chronic kidney disease who felt fatigued yesterday was recommended he presented to the emergency department for a blood transfusion. He was not short of breath. He did not have any chest discomfort. He is found to have an inguinal 7.5 which is within his normal range. He did receive 1 unit of packed blood cells last night which was complicated by transfusion reaction. This morning, he is very upset and anxious regarding his transfusion reaction. This is his fifth transfusion is received. [facility] He administers this weekly at home. Posttransfusion, his white blood cell count is a bit elevated. He did receive steroids for his transfusion reaction. He is afebrile. Past Med Surg Social Fam HX - Past Medical History Medical history: CHF, diabetes, hyperlipidemia, hypertension, renal disease, other (chronic anemai) Psychiatric history: no psych history - Past Surgical History Surgical History: cholecystectomy - Social History Smoking Status: Never smoker Smokeless Tobacco Status: No Alcohol use: none Drug use: none - Family History Mother History Unknown: Yes Father History Unknown: Yes Medications and Allergies Acetaminophen [Tylenol] 325 mg PO Q8H PRN 04/29/16 [History] Aspirin 81 mg PO DAILY 04/29/16 [History] Atorvastatin [Lipitor] 40 mg PO HS 04/29/16 [History] DULoxetine [Cymbalta] 90 mg PO DAILY PRN 04/29/16 [History] Furosemide [Lasix] 80 mg PO DAILY 04/29/16 [History] Gabapentin [Neurontin] 600 mg PO BID 04/29/16 [History] Insulin ASPART [NovoLOG] 15 unit SQ TID PRN 04/29/16 [History] Insulin Glargine [Lantus] 48 unit SQ BID 04/29/16 [History] Lisinopril [Zestril] 10 mg PO DAILY 04/29/16 [History] Trazodone HCl 50 mg PO HS 04/29/16 [History] Cholecalciferol (D-3) [Vitamin D] 2,000 unit PO DAILY 10/08/16 [History] OxyCODONE/APAP 5/325 [Percocet 5/325 MG] 1 tab PO Q6HR PRN 10/08/16 [History] NIFEdipine [Nifedipine ER] 30 mg PO DAILY 12/27/16 [History] metOLazone [Zaroxolyn] 2.5 mg PO Q48H 12/27/16 [History] Nitrofurantoin Monohyd/M-Cryst [Macrobid 100 mg Capsule] 100 mg PO BID #10 capsule 12/28/16 [Rx] 3 Allergy/AdvReac Type Severity Reaction Status Date / Time No Known Allergies Allergy Verified 09/24/16 09:32 Constitutional: Present: fatigue Eyes: Present: as per HPI Breasts: Present: as per HPI Cardiovascular: Present: as per HPI Respiratory: Present: dyspnea on exertion Gastrointestinal: Present: as per HPI Musculoskeletal: Present: back pain, muscle cramps Integumentary: Present: as per HPI Neurological: Present: as per HPI Endocrine: Present: as per HPI Hematologic/Lymphatic: Present: as per HPI Oncology - Exam - Constitutional Vitals: Temp Pulse Resp BP Pulse Ox 97.9 F 72 15 156/84 99 12/28/16 11:04 12/28/16 11:04 12/28/16 11:04 12/28/16 11:04 12/28/16 11:04 - Head Head exam: Present: atraumatic, normal inspection, normocephalic - Eye Eye exam: Present: conjuntiva pink, sclera anicteric - ENT ENT exam: Present: mucous membranes moist, normal exam - Neck Neck exam: Present: full ROM, normal inspection - Respiratory Respiratory exam: Present: decreased breath sounds - Cardiovascular Cardiovascular exam: Present: RRR - GI/Abdominal GI/Abdominal exam: Present: distended, firm - Extremities Exam Extremities exam: Present: pedal edema - Neurological Exam Neurological exam: Present: alert, CN II-XII intact, oriented X3 Oncology - Results Labs: Short CBC 12/28/16 Range/Units 03:22 WBC 15.9 H (4.3-11.1) K/mcL Hgb 8.2 L (12.9-16.9) g/dL Hct 27.5 L (37.5-50.1) % Plt Count 336 (140-400) K/mcL Neutrophils # 14.9 H (1.6-8.9) K/mcL BMP 12/28/16 03:22 Sodium 136 Potassium 4.6 H Chloride 102 Carbon Dioxide 25 BUN 43 H Creatinine 2.04 H Glucose 191 H Calcium 9.4 Urine 12/27/16 12/28/16 Range/Units 18:33 02:50 Urine Color Yellow Yellow (Yellow) Urine Clarity Clear Clear (Clear) Urine pH 6.0 5.5 (5.0-8.0) pH Units Ur Specific [place] 1.015 1.015 (1.010-1.025) Urine Protein 30 H 30 H (Neg-Trace) mg/dL Urine Glucose (UA) Normal Normal (Normal) mg/dL Consult Discharge Plan - Plan Additional Instructions: Follow up with your physician at the [facility] Follow up with hematology as scheduled. Take your antibiotic as directed and take them all until they are gone. Resume your normal home medications and activities as tolerated. Return to the ER as needed for any other problems or concerns or if your symptoms return or worsen. [facility]errals: [facility] [Primary Care Provider[facility] - Prescriptions: Nitrofurantoin Monohyd/M-Cryst [Macrobid 100 mg Capsule] 100 mg PO BID #10 capsule
[2016-12-28 12:48] LABS: Thyroid Stimulating Hormone 0.483 mcIU/mL (0.350-4.840)
[2016-12-28 12:59] LABS: Folate 7.6 ng/mL (7.0-31.4)
[2017-01-01 04:06] LABS: Lambda Qnt Free Light Chains 4.94 mg/dL (0.57-2.63)
[2017-01-01 17:38] LABS: Sickle Cell Solubility NOT PERFORMED
[2017-01-02 00:08] LABS: Beta Globulin (PEP) 1.28 g/dL (0.48-1.10)
[2017-01-02 07:34] LABS: Hemoglobin Capillary Electroph PERFORMED
[2017-01-02 07:42] LABS: IFE Reflexed NOT DONE
== END 2016-12-28 14:00 | disposition home health service (06) ==
LOC: 3BNU 13:07 → EMEROO 13:07 → 3BNU 17:03
PROVIDERS: ADMIT Internal Medicine; ATTEND Registered Nurse

== ENCOUNTER 2017-07-06 19:46 | Observation (INO) ==
[2017-07-06] MEDS ORDERED: Aspirin 81 MG TAB.CHEW PO STA (20:15)
--- NOTE | 2017-07-06 20:31 | Emergency Department Note ---
Disposition Clinical Impression: Chest pain Qualifiers: Chest pain type: unspecified Qualified Code(s): R07.9 - Chest pain, unspecified Disposition: Admitted As Inpatient General Adult HPI - General Chief complaint: ED Chest Pain Stated complaint: chest pain Time Seen by Provider: 07/06/17 19:49 Source: patient Mode of arrival: EMS Limitations: other Nursing Notes Reviewed: Yes Vital Signs Reviewed: Yes - History of Present Illness HPI Narrative: Patient is a 61-year-old male with past medical history of type 2 diabetes, CHF , HLD, HTN and renal disease presenting to the emergency department with the complaint of chest pain that has been going on for the past 3 days. He states the pain as a pressure-like pain and has been constant. The pain is not associated with vomiting, radiation, diaphoresis or exertion. The patient states he also has associated lower extremity swelling bilaterally with some of the skin breaking secondary to the swelling. Patient states that he lives at home in his apartment by himself. Denies any cardiac history such as MIs or recent stress test or echo's. No history of pulmonary embolism or DVTs. Pain Scale: 5 - Related Data Home Medications Medication Instructions Recorded Confirmed Aspirin 81 mg PO DAILY 04/29/16 07/06/17 Atorvastatin [Lipitor] 40 mg PO HS 04/29/16 07/06/17 DULoxetine [Cymbalta] 30 mg PO DAILY 04/29/16 07/06/17 Furosemide [Lasix] 80 mg PO DAILY 04/29/16 07/06/17 Gabapentin [Neurontin] 600 mg PO BID 04/29/16 07/06/17 Insulin ASPART [NovoLOG] 15 unit SQ TID PRN 04/29/16 07/06/17 Insulin Glargine [Lantus] 48 unit SQ BID 04/29/16 07/06/17 Trazodone HCl 50 mg PO HS 04/29/16 07/06/17 Cholecalciferol (D-3) [Vitamin D] 1,000 unit PO DAILY 10/08/16 07/06/17 OxyCODONE/APAP 5/325 [Percocet 1 tab PO Q8H PRN 10/08/16 07/06/17 5/325 MG] NIFEdipine [Nifedipine ER] 30 mg PO DAILY 12/27/16 07/06/17 Albuterol Sulfate [Albuterol 2 puff IH QID 10/06/17 03/25/18 Inhaler] Ascorbic Acid [Vitamin C] 250 mg PO DAILY 01/17/17 07/06/17 Darbepoetin Andrea in Polysorbat 60 mcg SQ TH 01/17/17 07/06/17 [Aranesp] Ferrous Sulfate [Iron] 325 mg PO BID 01/17/17 07/06/17 Ketoconazole 2% CRM [Nizoral Cream] 1 appl TP BID 01/17/17 07/06/17 Methocarbamol [Robaxin-750] 750 mg PO QID 01/17/17 07/06/17 Multivitamin [Multi-Day Vitamins] 1 each PO DAILY 01/17/17 07/06/17 Allergies Allergy/AdvReac Type Severity Reaction Status Date / Time No Known Allergies Allergy Verified 01/17/17 10:31 All systems ED: reviewed and negative except as stated. Review of Systems: As Per HPI Constitutional: Denies: fever, chills ENT ED: Denies: congestion Cardiovascular: Reports: chest pain, palpitations, edema. Denies: dyspnea on exertion, syncope Respiratory: Denies: cough, dyspnea, wheezes Gastrointestinal: Denies: abdominal pain, nausea, vomiting Genitourinary: Denies: dysuria Musculoskeletal: Denies: back pain, neck pain Integumentary: Reports: lesions (Patient has very small open skin tear on his anterior left leg which he states occurred recently. He also has dry irritated skin. Bilateral knees which appear to be from chronic skin rubbing against itself.) Neurological: Denies: headache, weakness Past Medical History - Past Medical History Attestation: Yes The following information was validated with the patient. Medical history: Reports: CHF, diabetes, hyperlipidemia, hypertension, renal disease, other Surgical history: Reports: cholecystectomy Psychiatric history: Reports: no psych history - Social History Smoking Status: Never smoker Smokeless Tobacco Status: No Alcohol use: Reports: none Drug use: Reports: none Physical Exam CONSTITUTIONAL: Patient is a morbidly obese male sitting up in bed speaking in complete sentences in no respiratory distress at this time.; A&O X 3, in no apparent distress HEAD: Normocephalic; atraumatic EYES: PERRL, no scleral icterus NOSE: The nose is normal in appearance without rhinorrhea NECK: No JVD or distended neck veins RESP: Normal chest excursion with respiration; breath sounds clear and equal bilaterally; no wheezes, rhonchi, or rales CARD: Regular rhythm, without murmurs, rub or gallop ABD: Non-distended; non-tender, soft, without rigidity, rebound or guarding,no pulsatile mass CHEST: No pain with palpation SKIN: Normal for age and race; warm and dry without diaphoresis ; patient has a small 1 cm x 1 cm skin tear on his left anterior beck. He also has areas of breath skin that appear callused and chronic from his skin of bilateral posterior knees rubbing together. EXTREMITIES: Pulses are 2 plus and equal times 4 extremities, no calf muscle pain. Patient has bilateral lower extremity pitting edema. - General Limitations: other General appearance: alert Course Course Narrative: Plan at this time is initiate cardiac workup of the patient including an EKG, troponin and chest x-ray. We will also order basic lab. She will also order a x-ray of the patient's left tibia/fibula due to patient being concerned that there is a wound and possible infection. However, when looking and does appear to be just a minor skin tear which was probably exacerbated by his lower extremity pitting edema. Ordered patient a full dose aspirin. - Reevaluation(s) Reevaluation #1: Patient's cardiac workup at this time is negative. His x-ray showed no signs of infection in his leg. Chest x-ray showed no acute. I discussed the patient with hospitalist Dr. Munguia and he agrees to accept the patient for chest pain rule out. Vital Signs Temperature 98.8 F 07/06/17 19:54 Pulse Rate 72 07/06/17 19:54 Respiratory Rate 18 07/06/17 19:54 Blood Pressure 178/87 07/06/17 19:54 O2 Sat by Pulse Oximetry 99 07/06/17 19:54 Temperature 98.8 F 07/06/17 19:54 Pulse Rate 72 07/06/17 21:26 Respiratory Rate 18 07/06/17 22:39 Blood Pressure 128/59 07/06/17 22:39 O2 Sat by Pulse Oximetry 99 07/06/17 21:26 Oxygen Delivery Oxygen Delivery Room Air Medical Decision Making - Medical Records Medical records reviewed: Yes I reviewed the patient's medical records. - Lab Data Lab results reviewed: Yes I reviewed the patient's lab results. Result diagrams: 07/06/17 20:27 07/06/17 20:27 Lab Results 07/06/17 07/06/17 07/06/17 Range/Units 20:27 20:27 20:27 WBC 10.0 (4.3-11.1) K/mcL RBC 3.54 L (4.19-5.50) M/mcL Hgb 8.9 L (12.9-16.9) g/dL Hct 30.1 L (37.5-50.1) % MCV 85.0 (83.0-100.0) fL MCH 25.1 L (28.0-33.3) pg MCHC 29.6 L (31.6-35.5) g/dL RDW 15.5 H (11.5-14.5) % Plt Count 294 (140-400) K/mcL MPV 9.2 L (9.4-12.4) fL Immature Gran % 0.3 (0-4) % Seg Neutrophils % 64.0 % Lymphocytes % 25.5 % Monocytes % 7.7 % Eosinophils % 2.3 % Basophils % 0.2 % Neutrophils # 6.4 (1.6-8.9) K/mcL Lymphocytes # 2.6 (0.6-4.6) K/mcL Monocytes # 0.8 (0.0-1.3) K/mcL Eosinophils # 0.2 (0.0-0.6) K/mcL Basophils # 0.0 (0.0-0.2) K/mcL Sodium 138 (136-145) mEq/L Potassium 3.8 (3.5-5.1) mEq/L Chloride 104 (98-107) mEq/L Carbon Dioxide 28 (23-29) mEq/L BUN 23 (8-23) mg/dL Creatinine 1.47 H (0.70-1.30) mg/dL Est GFR ( Amer) 59 L (> 60) Est GFR (Non-Af Amer) 49 L (> 60) BUN/Creatinine Ratio 16 (6-26) Glucose 145 H (70-105) mg/dL Calculated Osmolality 292 (280-300) Calcium 8.8 (8.6-10.3) mg/dL Troponin I 0.03 (< 0.04) ng/mL B-Natriuretic Peptide 57 (Less than 100) pg/mL - Radiology Data Radiology results reviewed: Yes I reviewed the patient's radiology results. Chest X-Ray 07/06/17 20:03 IMPRESSION: No acute findings. D/ / Gertrude Farr MD / Gertrude Farr MD Interpreting Provider: Gertrude Farr MD Tibia/Fibula X-Ray 07/06/17 20:13 IMPRESSION: Soft tissue edema. No acute bony abnormality peer D/ / Gertrude Farr MD / Gertrude Farr MD Interpreting Provider: Gertrude Farr MD - EKG Data EKG #1 EKG attestation: Yes I reviewed and interpreted this EKG. EKG results narrative: EKG done at 19:50 shows sinus rhythm at a rate of 73 bpm. Normal axis. NC is 194, QRS is 91, QT is 377 and QTc is 403 and these are within normal limits. No signs of ST elevation, ST depression or Q waves present. No old EKG for comparison.
[2017-07-06 20:50] LABS: Basophils % 0.2 %; Eosinophils # 0.2 K/mcL (0.0-0.6); Eosinophils % 2.3 %; Hematocrit 30.1 % (37.5-50.1); Hemoglobin 8.9 g/dL (12.9-16.9); Immature Granulocytes % 0.3 % (0-4); Lymphocytes # 2.6 K/mcL (0.6-4.6); Lymphocytes % 25.5 %; Mean Corpuscular HGB Conc 29.6 g/dL (31.6-35.5); Mean Corpuscular Hemoglobin 25.1 pg (28.0-33.3); Mean Platelet Volume 9.2 fL (9.4-12.4); Monocytes # 0.8 K/mcL (0.0-1.3); Monocytes % 7.7 %; Neutrophils # 6.4 K/mcL (1.6-8.9); Platelet Count 294 K/mcL (140-400); Red Blood Count 3.54 M/mcL (4.19-5.50); Red Cell Distribution Width 15.5 % (11.5-14.5)
[2017-07-06 21:12] LABS: Troponin I 0.03 ng/mL (< 0.04)
[2017-07-06] MEDS ORDERED: Nitroglycerin 0.4 MG TAB.SUBL SL PRN (21:12)
--- NOTE | 2017-07-06 21:12 | Emergency Department Note ---
Disposition Clinical Impression: Chest pain Qualifiers: Chest pain type: unspecified Qualified Code(s): R07.9 - Chest pain, unspecified Disposition: Still a Patient [facility]: [facility] [Primary Care Provider[facility] - General Adult HPI - General Chief complaint: ED Chest Pain Stated complaint: chest pain Time Seen by Provider: 07/06/17 19:49 Source: patient Mode of arrival: EMS Limitations: other - History of Present Illness Pain Scale: 5 - Related Data Home Medications Medication Instructions Recorded Confirmed Aspirin 81 mg PO DAILY 04/29/16 07/06/17 Atorvastatin [Lipitor] 40 mg PO HS 04/29/16 07/06/17 DULoxetine [Cymbalta] 30 mg PO DAILY 04/29/16 07/06/17 Furosemide [Lasix] 80 mg PO DAILY 04/29/16 07/06/17 Gabapentin [Neurontin] 600 mg PO BID 04/29/16 07/06/17 Insulin ASPART [NovoLOG] 15 unit SQ TID PRN 04/29/16 07/06/17 Insulin Glargine [Lantus] 48 unit SQ BID 04/29/16 07/06/17 Trazodone HCl 50 mg PO HS 04/29/16 07/06/17 Cholecalciferol (D-3) [Vitamin D] 1,000 unit PO DAILY 10/08/16 07/06/17 OxyCODONE/APAP 5/325 [Percocet 1 tab PO Q8H PRN 10/08/16 07/06/17 5/325 MG] NIFEdipine [Nifedipine ER] 30 mg PO DAILY 12/27/16 07/06/17 Albuterol Sulfate [Albuterol 2 puff IH QID 01/17/17 07/06/17 Inhaler] Ascorbic Acid [Vitamin C] 250 mg PO DAILY 01/17/17 07/06/17 Darbepoetin Andrea in Polysorbat 60 mcg SQ TH 01/17/17 07/06/17 [Aranesp] Ferrous Sulfate [Iron] 325 mg PO BID 01/17/17 07/06/17 Ketoconazole 2% CRM [Nizoral Cream] 1 appl TP BID 01/17/17 07/06/17 Methocarbamol [Robaxin-750] 750 mg PO QID 01/17/17 07/06/17 Multivitamin [Multi-Day Vitamins] 1 each PO DAILY 01/17/17 07/06/17 Allergies Allergy/AdvReac Type Severity Reaction Status Date / Time No Known Allergies Allergy Verified 01/17/17 10:31 Constitutional: Denies: fever, chills ENT ED: Denies: congestion Cardiovascular: Reports: chest pain, palpitations, edema. Denies: dyspnea on exertion, syncope Respiratory: Denies: cough, dyspnea, wheezes Gastrointestinal: Denies: abdominal pain, nausea, vomiting Genitourinary: Denies: dysuria Musculoskeletal: Denies: back pain, neck pain Integumentary: Reports: lesions (Patient has very small open skin tear on his anterior left leg which he states occurred recently. He also has dry irritated skin. Bilateral knees which appear to be from chronic skin rubbing against itself.) Neurological: Denies: headache, weakness Past Medical History - Past Medical History Medical history: Reports: CHF, diabetes, hyperlipidemia, hypertension, renal disease, other Surgical history: Reports: cholecystectomy Psychiatric history: Reports: no psych history - Social History Smoking Status: Never smoker Smokeless Tobacco Status: No Alcohol use: Reports: none Drug use: Reports: none Physical Exam - General Limitations: other General appearance: alert Course Vital Signs Temperature 98.8 F 07/06/17 19:54 Pulse Rate 72 07/06/17 19:54 Respiratory Rate 18 07/06/17 19:54 Blood Pressure 178/87 07/06/17 19:54 O2 Sat by Pulse Oximetry 99 07/06/17 19:54 Temperature 98.8 F 07/06/17 19:54 Pulse Rate 72 07/06/17 19:54 Respiratory Rate 18 07/06/17 19:54 Blood Pressure 178/87 07/06/17 19:54 O2 Sat by Pulse Oximetry 99 07/06/17 19:54 Oxygen Delivery Oxygen Delivery Room Air Medical Decision Making - Lab Data Result diagrams: 07/06/17 20:27 Lab Results 07/06/17 Range/Units 20:27 WBC 10.0 (4.3-11.1) K/mcL RBC 3.54 L (4.19-5.50) M/mcL Hgb 8.9 L (12.9-16.9) g/dL Hct 30.1 L (37.5-50.1) % MCV 85.0 (83.0-100.0) fL MCH 25.1 L (28.0-33.3) pg MCHC 29.6 L (31.6-35.5) g/dL RDW 15.5 H (11.5-14.5) % Plt Count 294 (140-400) K/mcL MPV 9.2 L (9.4-12.4) fL Immature Gran % 0.3 (0-4) % Seg Neutrophils % 64.0 % Lymphocytes % 25.5 % Monocytes % 7.7 % Eosinophils % 2.3 % Basophils % 0.2 % Neutrophils # 6.4 (1.6-8.9) K/mcL Lymphocytes # 2.6 (0.6-4.6) K/mcL Monocytes # 0.8 (0.0-1.3) K/mcL Eosinophils # 0.2 (0.0-0.6) K/mcL Basophils # 0.0 (0.0-0.2) K/mcL Attestation Statement - Attestation Attestation: I examined this patient and my medical decision-making was reviewed with the Resident Physician. I agree with the documented findings, disposition and treatment plan as described except to the extent set forth below. 61 year old male presents to the ED with complaints of emma pressure that is midsternal without radiation and worse with movment. denies hemopytosis. Todd states that he has not cardiac hsistory that is aware of although he has mutliple risk factors. Todd denies fevers, cough, cold, congestion. WE will do cardiopulmonary workup and cl[facility] admit for CP r/o ACS.
[2017-07-06 21:13] LABS: Calcium 8.8 mg/dL (8.6-10.3); Potassium 3.8 mEq/L (3.5-5.1)
--- NOTE | 2017-07-07 00:24 | Internal Med History&Physical ---
Date of Encounter: 07/28/17 Time of Encounter: 00:22 Assessment and Plan (1) Chest pain Status: Resolved ASSESSMENT: - Chest pain DD: *CAD *Muskuloskeletal CP - myofascial strain, costochondritis *GERD *Esophageal spasm *Cocaine induced *Pericarditis - unlikely *Pneumonia - no infiltrate on CXR PLAN: - cardiac enzymes x 2 q 8 hr - EKG now and in AM - ASA - O2 by NC to keep SpO2 greater than 92% - UA - CBCD, BMP in AM - Fasting lipids - Tylenol 650 mg PO q 4-6 hr PRN headache - Heparin 5000 U SQ BID - 2D Echo - Cardiology consult Qualifiers: Chest pain type: unspecified Qualified Code(s): R07.9 - Chest pain, unspecified (2) Anemia Status: Chronic The patient has headed to the chronic anemia,takes darbepoietin injections weekly, he is not quite sure about the nature of his disease however he said that he required chronic blood transfusion. He reports "thalassemia", but did not find that officially documented. Qualifiers: Anemia type: iron deficiency Iron deficiency anemia type: unspecified iron deficiency Qualified Code(s): D50.9 - Iron deficiency anemia, unspecified (3) Diabetes mellitus type 2 in obese Status: Chronic We will start the patient on insulin sliding scale while inpatient obtain hemoglobin A1c, diabetic diet. (4) Morbid obesity Status: Chronic (5) CKD (chronic kidney disease) stage 4, GFR 15-29 ml/min Status: Chronic Creatinine is at baseline, good urine output, continue to monitor, consider obtaining intact PTH and vitamin D level. (6) Sleep apnea Status: Chronic Qualifiers: Sleep apnea type: unspecified type Qualified Code(s): G47.30 - Sleep apnea , unspecified (7) CHF (congestive heart failure) Status: Acute Patient with history of CHF, on 80mg of lasix daily. Patient appears euvolemic on exam. Cardiac diet with 1.5L fluid restriction. daily weights, I/ Os. Continue home dose of PO lasix for now. Qualifiers: Qualified Code(s): I50.9 - Heart failure, unspecified (8) DVT prophylaxis Status: Acute We will start the patient on pharmacological anticoagulation with heparin. Internal Medicine - H&P: HPI Chief complaint: CP Admitted From: Home History of present illness: Mr. Mccoy is a 61 year old male with past medical history significant of diabetes mellitus, chronic anemia, chronic kidney disease who presented with the complaints complaints of chest pain, pressure like in character , midsternal without radiation that is aggravated by motion and was no alleviating factors. He denies shortness of breath, diaphoresis, palpitation, paroxysmal nocturnal dyspnea, progressive worsening of lower extremity edema. The patient was evaluated by the ER staff where his initial EKGs shows no significant ST-T wave elevation also his troponin was negative, the patient admitted for further evaluation and management and to rule out acute cardiac syndrome. Past Med Surg Social Fam HX - Past Medical History Medical history: CHF, diabetes, hyperlipidemia, hypertension, renal disease, other Psychiatric history: no psych history - Past Surgical History Surgical History: cholecystectomy - Social History Smoking Status: Never smoker Smokeless Tobacco Status: No Alcohol use: none Drug use: none Internal Medicine - H&P: Meds Aspirin 81 mg PO DAILY 04/29/16 [History] Atorvastatin [Lipitor] 40 mg PO HS 04/29/16 [History] Furosemide [Lasix] 40 mg PO DAILY 04/29/16 [History] Insulin ASPART [NovoLOG] 17 unit SQ TID 04/29/16 [History] Insulin Glargine [Lantus] 48 unit SQ BID 04/29/16 [History] Trazodone HCl 50 mg PO HS 04/29/16 [History] Cholecalciferol (D-3) [Vitamin D] 2,000 unit PO DAILY 10/08/16 [History] Albuterol Sulfate [Albuterol Inhaler] 2 puff IH QID 01/17/17 [History] Ascorbic Acid [Vitamin C] 250 mg PO DAILY 01/17/17 [History] Ferrous Sulfate [Iron] 325 mg PO BID 01/17/17 [History] Ketoconazole 2% CRM [Nizoral Cream] 1 appl TP BID 01/17/17 [History] Multivitamin [Multi-Day Vitamins] 1 tab PO DAILY 01/17/17 [History] Gabapentin [Neurontin] 800 mg PO BID 07/07/17 [History] Mupirocin [Bactroban Oint] 1 appl TP QID 07/07/17 [History] OxyCODONE/APAP 10/325 [Percocet 10/325 MG] 1 tab PO Q8HR PRN 07/07/17 [History] Prazosin HCl [Minipress] 2 mg PO DAILY 07/07/17 [History] Nystatin POWDER [Nystop] 1 appl TP BID #1 bottle 07/08/17 [Rx] 3 Allergy/AdvReac Type Severity Reaction Status Date / Time No Known Allergies Allergy Verified 07/07/17 08:37 All Systems PM: A 10-system review of systems was performed and is negative for pertinent findings except as documented above in the HPI. - Constitutional Vitals: Temp Pulse Resp BP Pulse Ox 98.1 F 68 20 138/61 100 07/06/17 23:20 07/06/17 23:20 07/06/17 23:20 07/06/17 23:20 07/06/17 23:20 Internal Med - H&P Results - Labs CBC & Chem 7: 07/07/17 01:17 07/07/17 01:17
[2017-07-07] MEDS ORDERED: *HR* OxyCODONE/APAP 5/325 TABLET PO PRN (00:28)
[2017-07-07] MEDS ORDERED: Naloxone 0.4 MG/ML INJ IVP PRN (00:31)
[2017-07-07] MEDS ORDERED: *HR* HYDROcodone/Acet 5/325 mg TABLET PO PRN (00:31)
[2017-07-07] MEDS ORDERED: Acetaminophen 325 MG TABLET PO PRN (00:31)
[2017-07-07 01:32] LABS: Basophils % 0.2 %; Eosinophils # 0.2 K/mcL (0.0-0.6); Eosinophils % 2.1 %; Hematocrit 27.6 % (37.5-50.1); Hemoglobin 8.3 g/dL (12.9-16.9); Immature Granulocytes % 0.4 % (0-4); Lymphocytes % 29.4 %; Mean Corpuscular HGB Conc 30.1 g/dL (31.6-35.5); Mean Corpuscular Hemoglobin 25.4 pg (28.0-33.3); Mean Corpuscular Volume 84.4 fL (83.0-100.0); Mean Platelet Volume 9.2 fL (9.4-12.4); Monocytes # 0.8 K/mcL (0.0-1.3); Monocytes % 7.7 %; Neutrophils # 6.1 K/mcL (1.6-8.9); Platelet Count 268 K/mcL (140-400); Red Blood Count 3.27 M/mcL (4.19-5.50); Red Cell Distribution Width 15.6 % (11.5-14.5); Segmented Neutrophils % 60.2 %
[2017-07-07 01:37] LABS: INR 1.2; Prothrombin Time 12.8 Seconds (9.4-12.1)
[2017-07-07 01:40] LABS: Activated Partial Thrombo Time 31.3 Seconds (26.0-36.0)
[2017-07-07 01:49] LABS: Alanine Aminotransferase 49 Units/L (7-52); Albumin 3.1 g/dL (3.5-5.7); Albumin/Globulin Ratio 0.7 (1.1-2.2); Alkaline Phosphatase 163 Units/L (34-104); Aspartate Amino Transferase 20 Units/L (13-39); BUN/Creatinine Ratio 16 (6-26); Bilirubin,Total 0.3 mg/dL (0.3-1.0); Blood Urea Nitrogen 22 mg/dL (8-23); Calcium 8.8 mg/dL (8.6-10.3); Carbon Dioxide 29 mEq/L (23-29); Chloride 104 mEq/L (98-107); Chol/HDL Ratio 3.4 (0-4.9); Cholesterol 103 mg/dL (< 200); Globulin 4.4 g/dL (2.4-3.5); Glucose 132 mg/dL (70-105); HDL Cholesterol 30 mg/dL (40-59); LDL Cholesterol,Calculated 54 mg/dL (0-99); Magnesium 1.7 mg/dL (1.6-2.6); Osmolality,Calculated 291 (280-300); Phosphorous 3.5 mg/dL (2.7-4.5); Potassium 3.7 mEq/L (3.5-5.1); Sodium 138 mEq/L (136-145); Total Protein 7.5 g/dL (6.4-8.9); Triglycerides 96 mg/dL (< 150); eGFR For African Americans > 60 (> 60); eGFR For Non-African Americans 53 (> 60)
[2017-07-07] MEDS ORDERED: *HR* Dextrose 50 % in Water (Syg) 50 ML SYRINGE IVP PRN (06:51)
[2017-07-07] MEDS ORDERED: D5% in Water 1,000 ML IVC PRN (06:51)
[2017-07-07] MEDS ORDERED: Dextrose Gel 15 GM/37.5 ML TUBE PO PRN ×2 (06:51)
[2017-07-07] MEDS: Insulin LISPRO 300 UNITS/3 ML VIAL SQ SCH ×3 (07:57→17:28)
[2017-07-07] MEDS: Furosemide 40 MG TABLET PO SCH (08:05)
[2017-07-07] MEDS: NIFEdipine XL (24 HR) 30 MG TAB.ER.24 PO SCH (08:05)
[2017-07-07] MEDS: Ascorbic Acid 500 MG TABLET PO SCH (08:05)
[2017-07-07] MEDS: Gabapentin 300 MG CAPSULE PO SCH ×2 (08:05→22:12)
[2017-07-07] MEDS: Aspirin 81 MG TAB.CHEW PO SCH (08:05)
[2017-07-07] MEDS: Cholecalciferol (D-3) 1,000 UNIT TABLET PO SCH (08:05)
[2017-07-07] MEDS: Multivit/Ca/Min/Fe/FA 1 TAB TABLET PO SCH (08:05)
[2017-07-07] MEDS: Methocarbamol 750 MG TABLET PO SCH ×4 (08:06→22:13)
[2017-07-07] MEDS: Ketoconazole 2% CRM 15 GM TUBE TP SCH ×2 (10:18→22:12)
[2017-07-07 10:31] LABS: Estimated Average Glucose 123 mg/dl; Hemoglobin A1C 5.9 %
[2017-07-07] MEDS: Insulin DETEMIR 100 UNIT/ML X5UNITS SQ SCH ×2 (13:00→22:27)
[2017-07-07] MEDS: Nystatin POWDER 30 GM BOTTLE TP SCH ×2 (15:16→22:13)
[2017-07-07] MEDS: *HR* Heparin 5,000 UNIT/ML VIAL SQ SCH (17:31)
--- NOTE | 2017-07-07 18:04 | Event Note ---
<Patrice Alarcon - Last Filed: 07/07/17 18:03> Date of Encounter: 07/07/17 Time of Encounter: 18:03 Patient admitted for chest pain rule out. Reports chest pressure has resolved. EKG normal sinus rhythm without ST-T wave changes. Troponins within normal limits. Chest x-ray shows no acute changes. Patient is awaiting echocardiogram. If negative likely will be discharged tomorrow morning. <Ten Nunez - Last Filed: 07/07/17 18:26> Date of Encounter: 07/07/17 61 y/o male admitted earlier today for CP r/o. He is awaiting echocardiogram Exam alert Comfortable. Not tachy Agree with plan as above and on H&P.
[2017-07-07] MEDS ORDERED: Perflutren Lipid Microsphere 1.3 ML in 0.9 % Sodium Chloride 8.7 ML IVP ONE (18:55)
[2017-07-07] MEDS ORDERED: Insulin LISPRO 300 UNITS/3 ML VIAL SQ SCH (21:00)
[2017-07-07] MEDS ORDERED: traZODone 50 MG TABLET PO SCH (21:00)
[2017-07-07] MEDS: *HR* OxyCODONE/APAP 10/325 TABLET PO PRN (22:38)
[2017-07-08] MEDS: *HR* Heparin 5,000 UNIT/ML VIAL SQ SCH (06:12)
[2017-07-08] MEDS: Multivit/Ca/Min/Fe/FA 1 TAB TABLET PO SCH (09:35)
[2017-07-08] MEDS: Cholecalciferol (D-3) 1,000 UNIT TABLET PO SCH (09:36)
[2017-07-08] MEDS: Ascorbic Acid 500 MG TABLET PO SCH (09:36)
[2017-07-08] MEDS: Methocarbamol 750 MG TABLET PO SCH ×2 (09:38→12:52)
[2017-07-08] MEDS: Aspirin 81 MG TAB.CHEW PO SCH (09:38)
[2017-07-08] MEDS: *HR* OxyCODONE/APAP 10/325 TABLET PO PRN (09:39)
--- NOTE | 2017-07-08 09:39 | Discharge Summary ---
<Patrice Alarcon - Last Filed: 07/08/17 11:02> Orders not resulted at time of discharge: Pending orders 07/07/17 00:31 Urinalysis reflex Microscopic [URIN] Routine Date of Encounter: 07/08/17 Time of Encounter: 09:36 - Discharge Diagnosis (1) Chest pain Priority: Primary Status: Resolved Qualifiers: Chest pain type: unspecified Qualified Code(s): R07.9 - Chest pain, unspecified (2) Anemia Priority: Secondary Status: Chronic Qualifiers: Anemia type: iron deficiency Iron deficiency anemia type: unspecified iron deficiency Qualified Code(s): D50.9 - Iron deficiency anemia, unspecified (3) CKD (chronic kidney disease) stage 3, GFR 30-59 ml/min Priority: Secondary Status: Chronic (4) Diabetes mellitus type 2 in obese Priority: Secondary Status: Chronic (5) DVT prophylaxis Priority: Secondary Status: Acute (6) Morbid obesity Priority: Secondary Status: Chronic (7) Sleep apnea Priority: Secondary Status: Chronic Qualifiers: Sleep apnea type: unspecified type Qualified Code(s): G47.30 - Sleep apnea , unspecified Hospital course: Mr. Mccoy is a 61 year old male history of diabetes mellitus, chronic anemia, CK D presented with chief complaint of chest pain was pressure-like substernal and without radiation. Patient's EKG was sinus rhythm with no ST-T wave changes. Troponin 3. Patient was started on aspirin, statin have been negative. Patient's renal function was stable. His hemoglobin A1c is 5.9. Lipid panel is stable with LDL being 54. Patient's anemia is stable at 8.3. Anemia secondary to thalassemia and patient sees oncology/hematology. Echocardiogram resulted in an LVEF of 60-65% with normal left ventricular systolic function, no pulmonary hypertension. Patient will follow-up with cardiology for stress test. - Time Spent with Patient Total time spent providing and/or coordinating discharge services: - Discharge Medications Prescriptions: Nystatin POWDER [Nystop] 1 appl TP BID #1 bottle Home Medications: Aspirin 81 mg PO DAILY 04/29/16 [History] Atorvastatin [Lipitor] 40 mg PO HS 04/29/16 [History] Furosemide [Lasix] 40 mg PO DAILY 04/29/16 [History] Insulin ASPART [NovoLOG] 17 unit SQ TID 04/29/16 [History] Insulin Glargine [Lantus] 48 unit SQ BID 04/29/16 [History] Trazodone HCl 50 mg PO HS 04/29/16 [History] Cholecalciferol (D-3) [Vitamin D] 2,000 unit PO DAILY 10/08/16 [History] Albuterol Sulfate [Albuterol Inhaler] 2 puff IH QID 01/17/17 [History] Ascorbic Acid [Vitamin C] 250 mg PO DAILY 01/17/17 [History] Ferrous Sulfate [Iron] 325 mg PO BID 01/17/17 [History] Ketoconazole 2% CRM [Nizoral Cream] 1 appl TP BID 01/17/17 [History] Multivitamin [Multi-Day Vitamins] 1 tab PO DAILY 01/17/17 [History] Gabapentin [Neurontin] 800 mg PO BID 07/07/17 [History] Mupirocin [Bactroban Oint] 1 appl TP QID 07/07/17 [History] OxyCODONE/APAP 10/325 [Percocet 10/325 MG] 1 tab PO Q8HR PRN 07/07/17 [History] Prazosin HCl [Minipress] 2 mg PO DAILY 07/07/17 [History] Nystatin POWDER [Nystop] 1 appl TP BID #1 bottle 07/08/17 [Rx] Allergies/Adverse Reactions: 3 Allergy/AdvReac Type Severity Reaction Status Date / Time No Known Allergies Allergy Verified 07/07/17 08:37 Date of admission: 07/06/17 22:02 [facility] Discharging clinician: Patrice Alarcon Anticipated date of discharge: 07/08/17 - Constitutional Vitals: Temp Pulse Resp BP Pulse Ox 98.4 F 62 14 135/68 100 07/08/17 08:06 07/08/17 08:06 07/08/17 08:06 07/08/17 08:06 07/08/17 08:06 - Other Additional findings: General: without distress HEENT: Head atraumatic, normocephalic, EOMI, PERRL, neck nontender to palpation , absent lymphadenopathy, Moist Mucous Membranes, Heart: Regular rate and rhythm with no murmur Lungs: Clear to auscultation bilaterally Abdomen: Soft nontender, nondistended positive bowel sounds Skin: warm and dry Extremities: 1+ pedal edema Neuro: Cranial nerves II through XII intact, UE and LE sensation equal bilaterally, UE and LEstrength 5/5, alert oriented 3, Vascular: Pedal and radial pulses 2 out of 4 - Patient Status Disposition: Home, Self-Care Condition: Good Functional capacity at discharge: independent ambulation Overall status at discharge: patient is back to baseline - Discharge Instructions Instructions: Heart Failure (DC), Chest Pain (DC), Acute Respiratory Distress Syndrome (DC), Diabetes Mellitus Type 2 in Adults (DC), Chronic Hypertension (DC ) Follow [facility] With: [facility]Primary Care Provider[facility] - (patient is home based and [facility] will see [facility] at [facility]) Forms: ED Satisfaction Letter - Diet and Activity Activity: increase activity as tolerated Diet: diabetic diet, low fat, low cholesterol, low salt diet - VTE Documentation of Mechanical Device: Graduated compression elastic hosiery <Hector Rios - Last Filed: 07/08/17 16:18> Orders not resulted at time of discharge: Pending orders 07/07/17 00:31 Urinalysis reflex Microscopic [URIN] Routine Date of Encounter: 07/08/17 Hospital course: Mr. Mccoy is a 61 year old male - Time Spent with Patient Total time spent providing and/or coordinating discharge services: Date of admission: 07/06/17 22:02 Primary care physician: [facility] Consults: 07/08/17 10:09 Consult to Assistant Tennis Professional [CONS] Routine Reason for SW Consult: Patient live home alone. Has care but cant remember name of company. Request Medicaid transport home. - Constitutional Vitals: Temp Pulse Resp BP Pulse Ox 98.4 F 70 14 152/66 98 07/08/17 11:44 07/08/17 11:44 07/08/17 11:44 07/08/17 11:44 07/08/17 11:44 - Attending Attestation I performed a [id number] diagnostic evaluation of this patient and my medical decision-making was reviewed with the Resident Physician, Dr Patrice Alarcon. I agree with the documented findings, disposition and treatment plan as described except to the extent set forth below. Patient is currently chest pain free. On exam she is in no acute distress. Heart is regular. Lungs are clear. Abdomen is soft. Plan: Patient ruled out for ACS. Echocardiogram shows ejection fraction of 60- 65%. No segmental wall motion abnormalities. I advised outpatient stress test to be arranged with PCP however the patient does not think he will tolerate a stress test. I counseled him about the importance of weight loss and advised outpatient follow-up for weight loss regimen. Hector Rios MD
[2017-07-08] MEDS: NIFEdipine XL (24 HR) 30 MG TAB.ER.24 PO SCH (09:42)
[2017-07-08] MEDS: Gabapentin 300 MG CAPSULE PO SCH (09:43)
[2017-07-08] MEDS: Insulin DETEMIR 100 UNIT/ML X5UNITS SQ SCH (09:43)
[2017-07-08] MEDS: Nystatin POWDER 30 GM BOTTLE TP SCH (09:44)
[2017-07-08] MEDS: Ketoconazole 2% CRM 15 GM TUBE TP SCH (09:45)
[2017-07-08] MEDS: Insulin LISPRO 300 UNITS/3 ML VIAL SQ SCH ×2 (09:46→12:52)
[2017-07-08] MEDS: Furosemide 40 MG TABLET PO SCH (09:47)
[2017-07-08 11:46] VITALS: BP 152/66
--- NOTE | 2017-07-08 19:39 | Electrocardiograph Report ---
[address] [address] Test Date: 2017-07-06 Pat Name: Manpreet Mccoy Department: 102 Room: 2N11 Gender: M Copyright Clerk: tt : 1955 Requested By: Prudencio Davies Order Number: [id number] Reading MD: Horacio James MD Measurements Intervals [place] Rate: 73 P: 66 ME: 194 QRS: -1 QRSD: 91 T: 33 QT: 377 QTc: 403 Interpretive Statements SINUS RHYTHM Electronically Signed On 07-08-2017 19:38:01 EDT by Horacio James MD
--- NOTE | 2017-07-09 06:32 | Electrocardiograph Report ---
[place] [address] Test Date: 2017-07-07 Pat Name: Manpreet Mccoy Department: 110 Room: 2N11 Gender: M Fitting Room Inspector: : 1955 Requested By: Cally Schultz Order Number: [id number] Reading MD: Horacio James MD Measurements Intervals [place] Rate: 72 P: 91 SC: 191 QRS: -9 QRSD: 89 T: 18 QT: 385 QTc: 409 Interpretive Statements SINUS RHYTHM LOW QRS VOLTAGE IN PRECORDIAL LEADS Electronically Signed On 07-09-2017 6:30:33 EDT by Horacio James MD
== END 2017-07-08 13:28 | disposition home or self-care (01) ==
LOC: EMEROO 19:46 → 2NNU 19:46 → SUATTDRO 22:02 → 2NNU 22:49
PROVIDERS: ADMIT Internal Medicine; ATTEND Internal Medicine

== ENCOUNTER 2018-01-12 14:34 | Inpatient (IN) ==
[2018-01-12] MEDS ORDERED: Nitroglycerin 0.4 MG TAB.SUBL SL ONE (14:42)
--- NOTE | 2018-01-12 14:45 | Emergency Department Note ---
Disposition Clinical Impression: Elevated troponin Chest pain Qualifiers: Chest pain type: unspecified Qualified Code(s): R07.9 - Chest pain, unspecified Anemia Qualifiers: Anemia type: unspecified type Qualified Code(s): D64.9 - Anemia, unspecified Chronic kidney disease Qualifiers: Chronic kidney disease stage: unspecified stage Qualified Code(s): N18.9 - Chronic kidney disease, unspecified Disposition: Admitted As Inpatient Condition: Fair [facility]errals: [facility] [Primary Care Provider] - Time of Disposition: 15:52 General Adult HPI - General Stated complaint: Chest Pain Time Seen by Provider: 01/12/18 14:41 Source: patient, EMS Mode of arrival: EMS Limitations: no limitations Nursing Notes Reviewed: Yes Vital Signs Reviewed: Yes - History of Present Illness HPI Narrative: 62-year-old male with a history of heart failure, diabetes and high blood pressure presents for evaluation of chest pain. Patient states he has had intermittent chest pain over the past week. Notes to be worse with exertion. Described in the center of his chest. Also notes some shortness of breath. No fevers or cough. Describes the chest pain as a heaviness. No nausea or vomiting. Patient appears be localized without radiation. Patient also noted increased lower sternum release swelling and has been on a diuretic. EMS reported the patient was given 4 baby aspirin in route. Patient denies any history of heart attacks or stents. - Related Data Home Medications Medication Instructions Recorded Confirmed Aspirin 81 mg PO DAILY 04/29/16 01/12/18 Atorvastatin [Lipitor] 40 mg PO HS 04/29/16 01/12/18 Insulin ASPART [NovoLOG] 17 unit SQ TID 04/29/16 01/12/18 Insulin Glargine [Lantus] 48 unit SQ BID 04/29/16 01/12/18 Cholecalciferol (D-3) [Vitamin D] 2,000 unit PO DAILY 10/08/16 01/12/18 Albuterol Sulfate [Albuterol 2 puff IH QID PRN 01/17/17 01/12/18 Inhaler] Ascorbic Acid [Vitamin C] 250 mg PO DAILY 01/17/17 01/12/18 Ferrous Sulfate [Iron] 325 mg PO BID 01/17/17 01/12/18 Gabapentin [Neurontin] 800 mg PO BID 07/07/17 01/12/18 OxyCODONE/APAP 10/325 [Percocet 1 tab PO Q8HR PRN 07/07/17 01/12/18 10/325 MG] Multivitamin [One Daily Essential] 1 tab PO DAILY 01/12/18 01/12/18 Torsemide [Demadex] 20 mg PO BID 01/12/18 01/12/18 Trazodone HCl 100 mg PO HS 01/12/18 01/12/18 hydrALAZINE [HydrALAZINE] 10 mg PO BID 01/12/18 01/12/18 Allergies Allergy/AdvReac Type Severity Reaction Status Date / Time No Known Allergies Allergy Verified 07/07/17 08:37 All systems ED: reviewed and negative except as stated. Constitutional: Denies: fever Cardiovascular: Reports: chest pain Respiratory: Reports: dyspnea. Denies: cough Gastrointestinal: Denies: abdominal pain, nausea, vomiting Musculoskeletal: Denies: back pain Past Medical History - Past Medical History Source: patient Medical history: Reports: CHF, diabetes, hyperlipidemia, hypertension, renal disease, other Surgical history: Reports: cholecystectomy Psychiatric history: Reports: anxiety, depression, previous psychiatric hospitalization - Social History Smoking Status: Never smoker Smokeless Tobacco Status: No Alcohol use: Reports: occasionally, heavy Drug use: Reports: cocaine Physical Exam - General Limitations: no limitations General appearance: alert, in no apparent distress, obese - Head Head exam: atraumatic, normocephalic, normal inspection - Eye Eye exam: Present: normal appearance, PERRL, EOMI - ENT ENT exam: normal exam - Neck Neck exam: Present: normal inspection - Chest Chest inspection: Present: normal inspection, symmetric chest wall rise - Respiratory Respiratory exam: Present: other (Diffusely diminished lung sounds throughout likely secondary to body habitus) - Cardiovascular Cardiovascular exam: Present: regular rate, normal rhythm. Absent: systolic murmur - Abdominal Exam Abdominal exam: Present: soft, Non-Tender - Extremities Exam Extremities exam: Present: pedal edema (3-4+ pedal edema) - Expanded Lower Extremity Exam Neurovascular/Tendon exam: Present: normal capillary refill - Back Exam Back exam: Present: normal inspection - Neurological Exam Neurological exam: Present: alert, oriented X3, CN II-XII intact - Skin Skin exam: Present: warm, dry, intact, normal color Course Course Narrative: Patient presents for evaluation of chest pain. Patient likely has an element of congestive heart failure. Patient will get basic labs, chest xry, and EKG as well as nitroglycerin. Disposition likely admission. - Reevaluation(s) Reevaluation #1: Patient's records reviewed. Back in June 2017 EF of 60-65. Indeterminate diastolic function at that time. Time: 15:05 Reevaluation #2: Patient's resting comfortably. Time: 15:29 Reevaluation #3: Patient seen and examined. Patient received 1 nitroglycerin. Patient's symptoms resolved. Patient is agreeable with admission. Time: 15:51 Vital Signs Temperature 98.4 F 01/12/18 14:39 Pulse Rate 78 01/12/18 14:39 Respiratory Rate 18 01/12/18 14:39 Blood Pressure 153/58 01/12/18 14:39 O2 Sat by Pulse Oximetry 98 01/12/18 14:39 Temperature 98.4 F 01/12/18 14:39 Pulse Rate 71 01/12/18 15:30 Respiratory Rate 16 01/12/18 15:30 Blood Pressure 134/61 01/12/18 15:30 O2 Sat by Pulse Oximetry 100 01/12/18 15:30 Oxygen Delivery Oxygen Delivery Room Air Medical Decision Making - MDM Narrative Medical decision making narrative: Patient presents for concerns of chest pain. Patient was given 4 baby aspirin prehospital. Patient was treated with nitroglycerin. Concerns for primary ACS versus a history of heart failure. Noted for STEMI swelling and dyspnea. Patient workup reveals an elevated troponin with no ischemic EKG changes. Patient also is noted to have baseline chronic anemia. Patient's kidney function appears at baseline as well. Patient was treated with nitroglycerin with symptomatic relief. Patient will be admitted to the hospital service for further evaluation and monitoring. Patient's anemia as well as chronic kidney disease is at baseline. - Lab Data Lab results reviewed: Yes I reviewed the patient's lab results. Result diagrams: 01/12/18 14:57 01/12/18 14:57 Lab Results 01/12/18 01/12/18 01/12/18 Range/Units 14:57 14:57 14:57 WBC 8.8 (4.3-11.1) K/mcL RBC 3.57 L (4.19-5.50) M/mcL Hgb 8.7 L (12.9-16.9) g/dL Hct 29.1 L (37.5-50.1) % MCV 81.5 L (83.0-100.0) fL MCH 24.4 L (28.0-33.3) pg MCHC 29.9 L (31.6-35.5) g/dL RDW 13.8 (11.5-14.5) % Plt Count 228 (140-400) K/mcL MPV 9.5 (9.4-12.4) fL Immature Gran % 0.3 (0-4) % Seg Neutrophils % 68.3 % Lymphocytes % 21.9 % Monocytes % 8.7 % Eosinophils % 0.6 % Basophils % 0.2 % Neutrophils # 6.0 (1.6-8.9) K/mcL Lymphocytes # 1.9 (0.6-4.6) K/mcL Monocytes # 0.8 (0.0-1.3) K/mcL Eosinophils # 0.1 (0.0-0.6) K/mcL Basophils # 0.0 (0.0-0.2) K/mcL PT 12.5 H (9.4-12.1) Seconds INR 1.1 Sodium (136-145) mEq/L Potassium (3.5-5.1) mEq/L Chloride (98-107) mEq/L Carbon Dioxide (23-29) mEq/L BUN (8-23) mg/dL Creatinine (0.70-1.30) mg/dL Est GFR ( Amer) (> 60) Est GFR (Non-Af Amer) (> 60) BUN/Creatinine Ratio (6-26) Glucose (70-105) mg/dL Calculated Osmolality (280-300) Calcium (8.6-10.3) mg/dL Troponin I (< 0.04) ng/mL B-Natriuretic Peptide 173 H (Less than 100) pg/mL 01/12/18 Range/Units 14:57 WBC (4.3-11.1) K/mcL RBC (4.19-5.50) M/mcL Hgb (12.9-16.9) g/dL Hct (37.5-50.1) % MCV (83.0-100.0) fL MCH (28.0-33.3) pg MCHC (31.6-35.5) g/dL RDW (11.5-14.5) % Plt Count (140-400) K/mcL MPV (9.4-12.4) fL Immature Gran % (0-4) % Seg Neutrophils % % Lymphocytes % % Monocytes % % Eosinophils % % Basophils % % Neutrophils # (1.6-8.9) K/mcL Lymphocytes # (0.6-4.6) K/mcL Monocytes # (0.0-1.3) K/mcL Eosinophils # (0.0-0.6) K/mcL Basophils # (0.0-0.2) K/mcL PT (9.4-12.1) Seconds INR Sodium 139 (136-145) mEq/L Potassium 4.1 (3.5-5.1) mEq/L Chloride 105 (98-107) mEq/L Carbon Dioxide 28 (23-29) mEq/L BUN 30 H (8-23) mg/dL Creatinine 1.92 H (0.70-1.30) mg/dL Est GFR ( Amer) 43 L (> 60) Est GFR (Non-Af Amer) 36 L (> 60) BUN/Creatinine Ratio 16 (6-26) Glucose 188 H (70-105) mg/dL Calculated Osmolality 299 (280-300) Calcium 8.7 (8.6-10.3) mg/dL Troponin I 0.04 H* (< 0.04) ng/mL B-Natriuretic Peptide (Less than 100) pg/mL - Radiology Data Radiology results reviewed: Yes I reviewed the patient's radiology results. Chest X-Ray 01/12/18 14:42 IMPRESSION: 1. Nonspecific mild central bronchial wall thickening which could relate to acute versus chronic bronchitis. 2. No acute pneumonia or pulmonary edema. D/ / 01/12/2018 15:37:13 Zach Shahid MD / ana cristina Interpreting Provider: Zach Shahid MD - EKG Data EKG #1 EKG attestation: Yes I reviewed and interpreted this EKG. EKG shows normal: sinus rhythm Rate: normal Rhythm: NSR [place]/QRS: normal Interpretation: no acute changes S.B.A.R. - S.B.A.R. Situation: Demographics Background: Presenting Complaint Assessment: Vital Signs, Course and respsone to treatment, Patient/Family Expectation Recommendation: Barrier(s) to disposition, Recommendation based on pending studies, treatments, or consults Kyler Report Given to: Dr. Nasima Chávez Repor Time: 15:51
--- NOTE | 2018-01-12 15:06 | Emergency Department Note ---
Disposition Clinical Impression: Elevated troponin, Anemia, Chronic kidney disease Chest pain Qualifiers: Chest pain type: unspecified Qualified Code(s): R07.9 - Chest pain, unspecified Disposition: Admitted As Inpatient Condition: Fair [facility]errals: [facility] [Primary Care Provider] - General Adult HPI - General Chief complaint: ED Chest Pain Stated complaint: Chest Pain Time Seen by Provider: 01/12/18 14:41 Source: patient, EMS Mode of arrival: EMS Limitations: no limitations Nursing Notes Reviewed: Yes Vital Signs Reviewed: Yes - History of Present Illness Pain Scale: 9 - Related Data Home Medications Medication Instructions Recorded Confirmed Aspirin 81 mg PO DAILY 04/29/16 01/12/18 Atorvastatin [Lipitor] 40 mg PO HS 04/29/16 01/12/18 Insulin ASPART [NovoLOG] 17 unit SQ TID 04/29/16 01/12/18 Insulin Glargine [Lantus] 48 unit SQ BID 04/29/16 01/12/18 Cholecalciferol (D-3) [Vitamin D] 2,000 unit PO DAILY 10/08/16 01/12/18 Albuterol Sulfate [Albuterol 2 puff IH QID PRN 01/17/17 01/12/18 Inhaler] Ascorbic Acid [Vitamin C] 250 mg PO DAILY 01/17/17 01/12/18 Ferrous Sulfate [Iron] 325 mg PO BID 01/17/17 01/12/18 Gabapentin [Neurontin] 800 mg PO BID 07/07/17 01/12/18 OxyCODONE/APAP 10/325 [Percocet 1 tab PO Q8HR PRN 07/07/17 01/12/18 10/325 MG] Multivitamin [One Daily Essential] 1 tab PO DAILY 01/12/18 01/12/18 Torsemide [Demadex] 20 mg PO BID 01/12/18 01/12/18 Trazodone HCl 100 mg PO HS 01/12/18 01/12/18 hydrALAZINE [HydrALAZINE] 10 mg PO BID 01/12/18 01/12/18 Allergies Allergy/AdvReac Type Severity Reaction Status Date / Time No Known Allergies Allergy Verified 07/07/17 08:37 Constitutional: Denies: fever Cardiovascular: Reports: chest pain Respiratory: Reports: dyspnea. Denies: cough Gastrointestinal: Denies: abdominal pain, nausea, vomiting Musculoskeletal: Denies: back pain Past Medical History - Past Medical History Medical history: Reports: CHF, diabetes, hyperlipidemia, hypertension, renal disease, other Surgical history: Reports: cholecystectomy Psychiatric history: Reports: anxiety, depression, previous psychiatric hospitalization - Social History Smoking Status: Never smoker Smokeless Tobacco Status: No Alcohol use: Reports: occasionally, heavy Drug use: Reports: cocaine Physical Exam - General Limitations: no limitations General appearance: alert, in no apparent distress, obese Course Vital Signs Temperature 98.4 F 01/12/18 14:39 Pulse Rate 78 01/12/18 14:39 Respiratory Rate 18 01/12/18 14:39 Blood Pressure 153/58 01/12/18 14:39 O2 Sat by Pulse Oximetry 98 01/12/18 14:39 Temperature 98.4 F 01/12/18 14:39 Pulse Rate 71 01/12/18 15:30 Respiratory Rate 16 01/12/18 15:30 Blood Pressure 134/61 01/12/18 15:30 O2 Sat by Pulse Oximetry 100 01/12/18 15:30 Oxygen Delivery Oxygen Delivery Room Air Medical Decision Making - [facility] Narrative Medical decision making narrative: Chest X-Ray 01/12/18 14:42 IMPRESSION: 1. Nonspecific mild central bronchial wall thickening which could relate to acute versus chronic bronchitis. 2. No acute pneumonia or pulmonary edema. D/ / Zach Shahid MD / Zach Shahid MD Interpreting Provider: Zach Shahid MD 1553 hrs.: Patient's labs are back. His troponin is elevated. He is not having any pain. Regular bring him into the hospital. CHF, rule out ACS. - Lab Data Result diagrams: 01/12/18 14:57 01/12/18 14:57 Lab Results 01/12/18 01/12/18 01/12/18 Range/Units 14:57 14:57 14:57 WBC 8.8 (4.3-11.1) K/mcL RBC 3.57 L (4.19-5.50) M/mcL Hgb 8.7 L (12.9-16.9) g/dL Hct 29.1 L (37.5-50.1) % MCV 81.5 L (83.0-100.0) fL MCH 24.4 L (28.0-33.3) pg MCHC 29.9 L (31.6-35.5) g/dL RDW 13.8 (11.5-14.5) % Plt Count 228 (140-400) K/mcL MPV 9.5 (9.4-12.4) fL Immature Gran % 0.3 (0-4) % Seg Neutrophils % 68.3 % Lymphocytes % 21.9 % Monocytes % 8.7 % Eosinophils % 0.6 % Basophils % 0.2 % Neutrophils # 6.0 (1.6-8.9) K/mcL Lymphocytes # 1.9 (0.6-4.6) K/mcL Monocytes # 0.8 (0.0-1.3) K/mcL Eosinophils # 0.1 (0.0-0.6) K/mcL Basophils # 0.0 (0.0-0.2) K/mcL PT 12.5 H (9.4-12.1) Seconds INR 1.1 Sodium (136-145) mEq/L Potassium (3.5-5.1) mEq/L Chloride (98-107) mEq/L Carbon Dioxide (23-29) mEq/L BUN (8-23) mg/dL Creatinine (0.70-1.30) mg/dL Est GFR ( Amer) (> 60) Est GFR (Non-Af Amer) (> 60) BUN/Creatinine Ratio (6-26) Glucose (70-105) mg/dL Calculated Osmolality (280-300) Calcium (8.6-10.3) mg/dL Troponin I (< 0.04) ng/mL B-Natriuretic Peptide 173 H (Less than 100) pg/mL 01/12/18 Range/Units 14:57 WBC (4.3-11.1) K/mcL RBC (4.19-5.50) M/mcL Hgb (12.9-16.9) g/dL Hct (37.5-50.1) % MCV (83.0-100.0) fL MCH (28.0-33.3) pg MCHC (31.6-35.5) g/dL RDW (11.5-14.5) % Plt Count (140-400) K/mcL MPV (9.4-12.4) fL Immature Gran % (0-4) % Seg Neutrophils % % Lymphocytes % % Monocytes % % Eosinophils % % Basophils % % Neutrophils # (1.6-8.9) K/mcL Lymphocytes # (0.6-4.6) K/mcL Monocytes # (0.0-1.3) K/mcL Eosinophils # (0.0-0.6) K/mcL Basophils # (0.0-0.2) K/mcL PT (9.4-12.1) Seconds INR Sodium 139 (136-145) mEq/L Potassium 4.1 (3.5-5.1) mEq/L Chloride 105 (98-107) mEq/L Carbon Dioxide 28 (23-29) mEq/L BUN 30 H (8-23) mg/dL Creatinine 1.92 H (0.70-1.30) mg/dL Est GFR ( Amer) 43 L (> 60) Est GFR (Non-Af Amer) 36 L (> 60) BUN/Creatinine Ratio 16 (6-26) Glucose 188 H (70-105) mg/dL Calculated Osmolality 299 (280-300) Calcium 8.7 (8.6-10.3) mg/dL Troponin I 0.04 H* (< 0.04) ng/mL B-Natriuretic Peptide (Less than 100) pg/mL Attestation Statement - Attestation Attestation: This documentation is done with the assistance of Dragon dictation. Despite efforts made to ensure accuracy, there may be inaccuracies in wire spooler or spelling and typographical errors. I examined this patient and my medical decision-making was reviewed with the Resident Physician. I agree with the documented findings, disposition and treatment plan as described except to the extent set forth below. Patient seen and evaluated on arrival with EMS and Dr. Caceres, patient presents today with chest discomfort that been going on intermittently today and this is with rest and exertion. He has a history of CHF and impressive peripheral edema. Denies any CAD in the past. Her cardiac workup on him and he will most likely need admission.
[2018-01-12 15:17] LABS: Basophils % 0.2 %; Eosinophils # 0.1 K/mcL (0.0-0.6); Eosinophils % 0.6 %; Hematocrit 29.1 % (37.5-50.1); Hemoglobin 8.7 g/dL (12.9-16.9); Immature Granulocytes % 0.3 % (0-4); Lymphocytes # 1.9 K/mcL (0.6-4.6); Lymphocytes % 21.9 %; Mean Corpuscular HGB Conc 29.9 g/dL (31.6-35.5); Mean Corpuscular Hemoglobin 24.4 pg (28.0-33.3); Mean Corpuscular Volume 81.5 fL (83.0-100.0); Mean Platelet Volume 9.5 fL (9.4-12.4); Monocytes # 0.8 K/mcL (0.0-1.3); Monocytes % 8.7 %; Platelet Count 228 K/mcL (140-400); Red Blood Count 3.57 M/mcL (4.19-5.50); Red Cell Distribution Width 13.8 % (11.5-14.5); Segmented Neutrophils % 68.3 %
[2018-01-12 15:22] LABS: INR 1.1; Prothrombin Time 12.5 Seconds (9.4-12.1)
[2018-01-12 15:36] LABS: Calcium 8.7 mg/dL (8.6-10.3); Potassium 4.1 mEq/L (3.5-5.1)
[2018-01-12 15:38] LABS: Troponin I 0.04 ng/mL (< 0.04)
[2018-01-12] MEDS ORDERED: Naloxone 0.4 MG/ML INJ IVP PRN (16:56)
[2018-01-12] MEDS ORDERED: Acetaminophen 325 MG TABLET PO PRN (16:56)
[2018-01-12] MEDS ORDERED: *HR* Dextrose 50 % in Water (Syg) 50 ML SYRINGE IVP PRN (17:45)
[2018-01-12] MEDS ORDERED: Dextrose Gel 15 GM/37.5 ML TUBE PO PRN ×2 (17:45)
[2018-01-12] MEDS ORDERED: D5% in Water 1,000 ML IVC PRN (17:45)
--- NOTE | 2018-01-12 17:57 | Internal Med History&Physical ---
Date of Encounter: 01/12/18 Time of Encounter: 17:09 Internal Medicine - H&P: HPI Chief complaint: Chest pain Admitted From: Emergency Dept Plans for Post Hospital Care: Home History of present illness: Mr. Mccoy is a 62 year old male past medical history of CHF diabetes hyperlipidemia hypertension CK D stage IV anemia sleep apnea patient has been experiencing intermittent chest pain for the past week it is worse on exertion and he does experience shortness of breath at times. He describes the pain as sharp occurring in the center of his chest nonradiating. Denies any fevers cough he also admits to lower extremity swelling and orthopnea. He is on diuretics at home and states he has not been urinating as much as he normally urinates. He does not normally wear oxygen at home however he does wear CPAP at night. Chest x-ray completed with no acute pneumonia or pulmonary edema. Lab work was completed which did show elevation in creatinine 1.92 troponin was slightly elevated 0.04. EKG with no ST-T wave abnormality BMP was 173. Admitted for further work and evaluation of chest pain. Currently patient denies any chest pain however he does have tenderness upon palpation of left chest wall. He does have some dependent swelling noted in his back as well as lower extremities. Patient states he has not seen a physician in some time Past Med Surg Social Fam HX - Past Medical History Medical history: CHF, diabetes, hyperlipidemia, hypertension, renal disease, other Psychiatric history: anxiety, depression, previous psychiatric hospitalization - Past Surgical History Surgical History: cholecystectomy - Social History Smoking Status: Never smoker Smokeless Tobacco Status: No Alcohol use: occasionally, heavy Drug use: cocaine - Additional Family History Additional family history: Reviewed and noncontributory Internal Medicine - H&P: Meds Aspirin 81 mg PO DAILY 04/29/16 [History] Atorvastatin [Lipitor] 40 mg PO HS 04/29/16 [History] Insulin ASPART [NovoLOG] 17 unit SQ TID 04/29/16 [History] Insulin Glargine [Lantus] 48 unit SQ BID 04/29/16 [History] Cholecalciferol (D-3) [Vitamin D] 2,000 unit PO DAILY 10/08/16 [History] Albuterol Sulfate [Albuterol Inhaler] 2 puff IH QID PRN 01/17/17 [History] Ascorbic Acid [Vitamin C] 250 mg PO DAILY 01/17/17 [History] Ferrous Sulfate [Iron] 325 mg PO BID 01/17/17 [History] Gabapentin [Neurontin] 800 mg PO BID 07/07/17 [History] OxyCODONE/APAP 10/325 [Percocet 10/325 MG] 1 tab PO Q8HR PRN 07/07/17 [History] Multivitamin [One Daily Essential] 1 tab PO DAILY 01/12/18 [History] Torsemide [Demadex] 20 mg PO BID 01/12/18 [History] Trazodone HCl 100 mg PO HS 01/12/18 [History] hydrALAZINE [HydrALAZINE] 10 mg PO BID 01/12/18 [History] 3 Allergy/AdvReac Type Severity Reaction Status Date / Time No Known Allergies Allergy Verified 07/07/17 08:37 All Systems PM: A 10-system review of systems was performed and is negative for pertinent findings except as documented above in the HPI. - Constitutional Constitutional: no chills, no fever(s), no night sweats - EENT Eyes: no change in vision, no discharge, no pain, no photophobia Ears: no ear discharge, no ear pain, no tinnitus Nose, mouth and throat: no dysphagia, no nasal discharge, no neck pain, no sore throat - Cardiovascular Cardiovascular ROS IM: chest pain, dyspnea on exertion, edema, orthopnea - Respiratory Respiratory: cough, no dyspnea, no wheezing, no excessive phlegm production - Gastrointestinal Gastrointestinal: no abdominal pain, no diarrhea, no hematemesis, no hematochezia, no melena, no nausea, no vomiting - Musculoskeletal Musculoskeletal ROS IM: no numbness, no tingling - Integumentary Integumentary IM: no rash, no unusual bruising - Neurological Neurological ROS: no confusion, no convulsions, no focal weakness, no numbness, no tingling, no tremor(s) - Hematologic/Lymphatic Hematologic/Lymphatic: no easy bruising - Constitutional Vitals: Temp Pulse Resp BP Pulse Ox 98.4 F 70 16 146/61 99 01/12/18 14:39 01/12/18 16:00 01/12/18 16:50 01/12/18 16:50 01/12/18 16:00 General appearance: Present: A&O X 3, morbidly obese Exam: See below - Head Head exam: Present: atraumatic, normocephalic - Eye Eye exam: Present: PERRL, conjuntiva pink, sclera anicteric Pupils: Present: PERRL - Neck Neck exam general surgery: Present: supple, trachea midline. Absent: lymphadenopathy - Respiratory Respiratory exam: Present: CTAB. Absent: accessory muscle use, rales, rhonchi, wheezes - Cardiovascular Cardiovascular exam: Present: RRR, +S1, +S2. Absent: diastolic murmur, gallop, rubs, systolic murmur - GI/Abdominal GI/Abdominal exam: Present: normal bowel sounds, soft, no peritoneal signs. Absent: distended, tenderness - Extremities Exam Extremities exam: Present: pedal edema, warm, radial pulses palpable and symmetrical. Absent: calf tenderness, cyanotic - Neurological Exam Neurological exam: Present: CN II-XII intact, oriented X3, no focal deficits. Absent: pronater drift, facial droop, speech deficit - Skin Skin exam: Present: dry, intact Internal Med - H&P Results - Labs CBC & Chem 7: 01/12/18 14:57 01/12/18 14:57 - EKG Data EKG shows normal: sinus rhythm - Diagnostic Studies Chest x-ray Additional comments: Chest X-Ray 01/12/18 14:42 IMPRESSION: 1. Nonspecific mild central bronchial wall thickening which could relate to acute versus chronic bronchitis. 2. No acute pneumonia or pulmonary edema. D/ / 01/12/2018 15:37:13 Zach Shahid MD / ana cristina Interpreting Provider: Zach Shahid MD - Assessment and plan (1) Chest pain Current Visit: Yes Status: Acute Assessment and plan: 1 presented with chest pain-that has been intermittent for the past week or so with exertion as well as shortness of breath also complains of swelling and decreased urination despite the use of diuretics initial troponin was slightly elevated 0.04 continue to trend We will obtain cardiac echo Continue with aspirin and statin Continuous cardiac monitoring EKG in a.m. nitroglycerin as needed for chest pain Consult cardiology as needed Qualifiers: Chest pain type: unspecified Qualified Code(s): R07.9 - Chest pain, unspecified (2) Anemia Current Visit: Yes Status: Acute Assessment and plan: Patient has a history of anemia normally hemoglobin ranges between 7 and 8 and he is seeing oncology in the past we will continue to monitor hemoglobin daily Qualifiers: Anemia type: unspecified type Qualified Code(s): D64.9 - Anemia, unspecified (3) CKD (chronic kidney disease) stage 3, GFR 30-59 ml/min Current Visit: No Status: Chronic Assessment and plan: Creatinine 1.92 patient states 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 We will continue to monitor closely Monitor intake and output daily weights Avoid Nephrotoxins Renal diet (4) CHANELL (obstructive sleep apnea) Current Visit: No Status: Chronic Assessment and plan: Continue with CPAP at night (5) DVT prophylaxis Current Visit: Yes Status: Acute Assessment and plan: Heparin subcutaneous (6) CHF (congestive heart failure) Current Visit: Yes Status: Acute Assessment and plan: Echo completed 07/07/2017 Impressions: LVEF 60-65%. Not all LV wall segments are well visualized due to angulated views. Overall, LV systolic function is normal. Mild increase in LV wall thickness. Indeterminate diastolic function. Definity echo contrast was used. RV size not well evaluated due to angulated views. Function appears normal. No significant valvular dysfunction. No pulmonary hypertension. Chest x-ray nonspecific mild central bronchial wall thickening which could relate to acute versus chronic bronchitis and acute pneumonia or pulmonary edema BNP was 173 61 sounds are clear at this time he does have lower extremity edema bilaterally as well as dependent edema to his back. Patient admits that he has had decreased urine output despite the use of diuretics. We will place on 40 mg IV Lasix twice a day monitor creatinine closely monitor intake and output and daily weights Low Sodium diet 1500 mL fluid restriction Obtain limited echo Continue cardiac monitoring Qualifiers: Heart failure type: unspecified Heart failure chronicity: unspecified Qualified Code(s): I50.9 - Heart failure, unspecified - Time Spent With Patient Total time spent is greater than 50% in coordination of care (as documented) at patient's floor/unit and/or counseling patient:
[2018-01-12] MEDS ORDERED: Nitroglycerin 0.4 MG TAB.SUBL SL PRN (18:12)
[2018-01-12] MEDS: *HR* Heparin 5,000 UNIT/ML VIAL SQ SCH (18:33)
[2018-01-12] MEDS: Furosemide 40 MG/4 ML VIAL IVP SCH (18:34)
[2018-01-12] MEDS: *HR* OxyCODONE/APAP 10/325 TABLET PO PRN (18:36)
[2018-01-12] MEDS: Ondansetron 4 MG/2 ML VIAL IVP PRN (20:43)
[2018-01-12] MEDS ORDERED: Insulin DETEMIR 100 UNIT/ML X5UNITS SQ SCH (21:00)
[2018-01-12] MEDS: Gabapentin 400 MG CAPSULE PO SCH (21:57)
[2018-01-12] MEDS: traZODone 50 MG TABLET PO SCH (21:57)
[2018-01-12] MEDS: hydrALAZINE 10 MG TABLET PO SCH (21:57)
[2018-01-13 02:39] LABS: Basophils % 0.3 %; Eosinophils # 0.1 K/mcL (0.0-0.6); Eosinophils % 1.7 %; Hematocrit 26.4 % (37.5-50.1); Hemoglobin 7.9 g/dL (12.9-16.9); Lymphocytes # 2.2 K/mcL (0.6-4.6); Lymphocytes % 37.3 %; Mean Corpuscular HGB Conc 29.9 g/dL (31.6-35.5); Mean Corpuscular Hemoglobin 24.5 pg (28.0-33.3); Mean Corpuscular Volume 81.7 fL (83.0-100.0); Mean Platelet Volume 9.5 fL (9.4-12.4); Monocytes # 0.6 K/mcL (0.0-1.3); Monocytes % 10.3 %; Platelet Count 185 K/mcL (140-400); Red Blood Count 3.23 M/mcL (4.19-5.50); Segmented Neutrophils % 50.4 %
[2018-01-13 02:58] LABS: Calcium 8.4 mg/dL (8.6-10.3); Magnesium 1.8 mg/dL (1.6-2.6); Potassium 4.7 mEq/L (3.5-5.1)
[2018-01-13] MEDS: Ondansetron 4 MG/2 ML VIAL IVP PRN ×2 (03:02→11:01)
[2018-01-13] MEDS: *HR* Heparin 5,000 UNIT/ML VIAL SQ SCH ×2 (06:25→17:08)
[2018-01-13] MEDS ORDERED: Insulin LISPRO 300 UNITS/3 ML VIAL SQ SCH (07:30)
[2018-01-13] MEDS: Gabapentin 400 MG CAPSULE PO SCH ×2 (08:18→20:23)
[2018-01-13] MEDS: hydrALAZINE 10 MG TABLET PO SCH ×2 (08:19→20:23)
[2018-01-13] MEDS: Multivit/Ca/Min/Fe/FA 1 TAB TABLET PO SCH (08:19)
[2018-01-13] MEDS: Ascorbic Acid 500 MG TABLET PO SCH (08:19)
[2018-01-13] MEDS: Cholecalciferol (D-3) 1,000 UNIT TABLET PO SCH (08:19)
[2018-01-13] MEDS: Aspirin 81 MG TAB.CHEW PO SCH (08:19)
[2018-01-13] MEDS: Furosemide 40 MG/4 ML VIAL IVP SCH ×2 (08:19→17:08)
[2018-01-13] MEDS: *HR* OxyCODONE/APAP 10/325 TABLET PO PRN ×2 (08:58→18:19)
--- NOTE | 2018-01-13 10:54 | Internal Med Progress Note ---
Hospitalist Progress Note - Encounter Date of Encounter: 01/13/18 Time of Encounter: 10:49 - Subjective Interval History: no acute changes over night, shortness of breath improving. Continuing to have intermittent chest pain - Exam Vitals: Temp Pulse Resp BP Pulse Ox 98.0 F 62 17 162/75 98 01/13/18 07:17 01/13/18 07:17 18 07:17 01/13/18 07:17 01/13/18 07:17 Exam: PHYSICAL EXAMINATION: GENERAL: The patient is obese male, in no distress; A&O x3 HEENT: Head is normocephalic and atraumatic. Extraocular muscles are intact. Pupils are equal, round, and reactive to light and accommodation NECK: Supple. No carotid bruits. No lymphadenopathy or thyromegaly. LUNGS: Clear to auscultation AP&L B/L. HEART: Regular rate and rhythm, S1, S2, without murmurs, rubs or gallops. ABDOMEN: Soft, nontender, and nondistended. Positive bowel sounds. No hepatosplenomegaly was noted. EXTREMITIES: Without any cyanosis, clubbing, rash, lesions. B/L 2+ pitting edema NEUROLOGIC: Cranial nerves II through XII are grossly intact. SKIN: No ulceration or induration present. - Assessment and Plan (1) Chest pain Current Visit: Yes Status: Acute Assessment and Plan: Presented with intermittent chest pain with exertion as well as dyspnea, diaphoresis and dizziness Ultimately risk factors for CAD including HTN, HLD, DM, morbid obesity. Has a family history of early cardiac demise ECG without ischemic changes, borderline troponin elevation 0.042 then negative in the setting of CKD and anemia With continued chest pain and patient's risk factors cardiology was consult Thank you for seeing in consultation; per cardiology there are no urgent need for inpatient transfer, continue to monitor. Continue ASA, statin add low-dose beta bebe and Imdur Patient unable to have further cardiac evaluation at this facility should evaluation and to be completed he will need to be transferred to [facility] He is to follow-up with cardiology for further evaluation upon discharge Continue telemetry (2) CKD (chronic kidney disease) stage 3, GFR 30-59 ml/min Current Visit: No Status: Chronic Assessment and Plan: History of CKD 3 Baseline creatinine variable around 1.9-2.0 Patient around baseline creatinine today with S CR 2.11 Reports that he is noncompliant and does not follow with nephrology closely We will continue to monitor closely Monitor intake and output daily weights Avoid Nephrotoxins Renal diet (3) CHANELL (obstructive sleep apnea) Current Visit: No Status: Chronic Assessment and Plan: her history Continue with CPAP at night (4) Anemia Current Visit: Yes Status: Acute Assessment and Plan: Chronic anemia in the setting of renal disease Hemoglobin ranges 7-8; has followed nephrology in the past for anemia Hemoglobin 7.9 this morning and 9 at recheck this afternoon No obvious S SX of bleeding Continue to closely monitor Recheck labs in the morning (5) CHF (congestive heart failure) Current Visit: Yes Status: Acute Assessment and Plan: Patient presented with elevated BNP and bilateral lower extremity 2+ pitting edema 01/13--BLE pitting edema persists, fine bibasilar rales per auscultation Continue IV diuretics, low sodium diet, 1500 mL fluid restriction and cardiac monitoring TTE with EF preserved, LV endocardium not well seen, wall motion unable to be determined due to body habitus. Mildly dilated LV, mild cLVH, RV not well seen due to body habitus. Mildly dilated RV, mild RV hypokinesis, mildly dilated LA and RA (6) DVT prophylaxis Current Visit: Yes Status: Acute Assessment and Plan: Heparin - Time Spent with Patient Total time spent is greater than 50% in coordination of care (as documented) at patient's floor/unit and/or counseling patient: less than 15 minutes Plan of Care Discussed with: patient Internal Medicine: Result - Labs CBC & Chem 7: 01/13/18 14:12 01/13/18 02:29 Labs: Short CBC 01/13/18 Range/Units 02:29 WBC 5.9 (4.3-11.1) K/mcL Hgb 7.9 L (12.9-16.9) g/dL Hct 26.4 L (37.5-50.1) % Plt Count 185 (140-400) K/mcL Neutrophils # 3.0 (1.6-8.9) K/mcL BMP 01/13/18 02:29 Sodium 141 Potassium 4.7 Chloride 107 Carbon Dioxide 28 BUN 30 H Creatinine 2.11 H Glucose 274 H Calcium 8.4 L Cardiac Enzymes 01/12/18 01/13/18 Range/Units 20:38 02:29 Troponin I 0.04 H* 0.03 (< 0.04) ng/mL - ABG Interpretation ABG results: PT/INR, D-dimer PT 12.5 Seconds (9.4-12.1) H 01/12/18 14:57 - Impressions Impressions Echocardiogram Limited Views 01/12/18 17:04 Impressions: Limited Echo. Technically sub-optimal poor echo windows and lack of LV contrast. LVEF grossly 55%%. LV endocardium not seen, wall motion unable to determine. Mildly dilated left ventricle. Mild concentric left ventricular hypertrophy. RV not well seen. mildly dilated right ventricle. Mild right ventricular hypokinesis. Mildly dilated left atrium and right atrium. Findings: Comments * Limited Echo. Study Quality * Technical review due to lack of LV contrast. * Technically sub-optimal due to body habitus and poor echo windows. ECG Findings * Normal sinus rhythm. Left Ventricle * Mild concentric left ventricular hypertrophy. * Mildly dilated left ventricle. * Definity echo contrast was not used. * LV endocardium not seen, wall motion unable to determine due to lack of LV contrast * LVEF grossly 55%%. Right Ventricle * RV not well seen * Mildly dilated right ventricle. * Mild right ventricular hypokinesis. Left Atrium * Mildly dilated left atrium. Right Atrium * Mildly dilated right atrium. Consult Discharge Plan - Plan [facility]Primary Care Provider[facility] - (1) Chest pain Qualifiers: Chest pain type: unspecified Qualified Code(s): R07.9 - Chest pain, unspecified (4) Anemia Qualifiers: Anemia type: unspecified type Qualified Code(s): D64.9 - Anemia, unspecified (5) CHF (congestive heart failure) Qualifiers: Heart failure type: unspecified Heart failure chronicity: unspecified Qualified Code(s): I50.9 - Heart failure, unspecified
[2018-01-13] MEDS: *HR* Promethazine 25 MG/ML VIAL IVP PRN ×2 (11:24→17:16)
[2018-01-13] MEDS: Insulin LISPRO 300 UNITS/3 ML VIAL SQ SCH ×2 (12:24→17:17)
--- NOTE | 2018-01-13 12:26 | Cardiology Consult Note ---
Date of Encounter: 01/13/18 Time of Encounter: 12:21 Assessment and Plan (1) Chest pain Current Visit: Yes Status: Acute Presents with CP x 1 week, intermittent at rest and exertion, occasional radiation to left arm and right arm tingling. 2 episodes n/v this AM. Chest wall tenderness on palpation. Borderline troponins 0.04 x 2, then negative, in setting of CKD and anemia of chronic disease. Demand ischemia, nondiagnostic for ACS. ECG without ischemic changes. Per pt, no hx of CAD. Has never had a LHC and last stress test was >20 years ago. TTE EF preserved. LV endocardium not seen, wall motion unable to determine. Mildly dilated LV. Mild cLVH. RV not well seen. Mildly dilated RV. Mild RV hypokinesis. Mildly dilated LA and RA. Risk factors for CAD include HTN, HLD, DM, morbid obesity. Pt has had multiple chest pain admissions/ED visits, but unfortunately his weight is in excess of what our cardiac testing (Stress test, LHC) is capable of holding. No urgent need for inpt transfer given only borderline troponins and no ischemic ECG changes. Recommend outpt referral to [facility] for ischemic evaluation. On ASA and Statin. Add low dose BB and Imdur. Anticipate sign off once seen and evaluated by Dr. James. Qualifiers: Chest pain type: unspecified Qualified Code(s): R07.9 - Chest pain, unspecified (2) Elevated troponin I measurement Current Visit: No Status: Acute Borderline troponins 0.04 x 2, then negative, in setting of CKD and anemia of chronic disease. Demand ischemia, nondiagnostic for ACS. ECG without ischemic changes. Medical management as above. TTE EF preserved. (3) Chronic kidney disease Current Visit: Yes Status: Acute Stage IV CKD. Creatinine 2.11, near baseline range. Qualifiers: Chronic kidney disease stage: stage 4 (severe) Qualified Code(s): N18.4 - Chronic kidney disease, stage 4 (severe) Discussion w patient/family: The assessment and plan as outlined above was discussed with the patient and/or family members who expressed understanding and agreement. All questions were answered. Thank you for involving us in the care of your patient. Please call with any questions. I will discuss all the above with Dr. James and make changes as necessary. History of Present Illness Consult date: 01/13/18 Requesting physician: Dinesh Polanco Consult reason: Chest pain Chief complaint: chest pain History of present illness: Mr. Mccoy is a 62 year old male with PMH of diastolic CHF, DM, HTN, HLD CKD stage IV, chronic anemia, CHANELL on CPAP. Presented with chief complaint of intermittent chest pain for the past week described as pressure in the center of his chest with occasional radiation to left arm and right arm numbness. Reports it occurs at both rest and exertion. Endorses lower extremity swelling and orthopnea. Chest tenderness noted on palpation. Reports 2 episodes of n/v today. Limited Echo obtained. Technically sub-optimal poor echo windows and lack of LV contrast. LVEF grossly 55%%. LV endocardium not seen, wall motion unable to determine. Mildly dilated LV. Mild cLVH. RV not well seen. mildly dilated right ventricle. Mild right ventricular hypokinesis. Mildly dilated left atrium and right atrium. Troponin 0.04 x 2, then 0.03. Creatinine 1.92, 2.11. HGB 7.9. Cardiology consulted for further recs. Past Med Surg Social Fam HX - Past Medical History Medical history: CHF, diabetes, hyperlipidemia, hypertension, renal disease, other Psychiatric history: anxiety, depression, previous psychiatric hospitalization - Past Surgical History Surgical History: cholecystectomy - Social History Smoking Status: Never smoker Smokeless Tobacco Status: No Alcohol use: occasionally, heavy Drug use: cocaine - Family History Brother Hx Family Endocrine Disorder: Yes (DM) Medications and Allergies Aspirin 81 mg PO DAILY 04/29/16 [History] Atorvastatin [Lipitor] 40 mg PO HS 04/29/16 [History] Insulin ASPART [NovoLOG] 17 unit SQ TID 04/29/16 [History] Insulin Glargine [Lantus] 48 unit SQ BID 04/29/16 [History] Cholecalciferol (D-3) [Vitamin D] 2,000 unit PO DAILY 10/08/16 [History] Albuterol Sulfate [Albuterol Inhaler] 2 puff IH QID PRN 01/17/17 [History] Ascorbic Acid [Vitamin C] 250 mg PO DAILY 01/17/17 [History] Ferrous Sulfate [Iron] 325 mg PO BID 01/17/17 [History] Gabapentin [Neurontin] 800 mg PO BID 07/07/17 [History] OxyCODONE/APAP 10/325 [Percocet 10/325 MG] 1 tab PO Q8HR PRN 07/07/17 [History] Multivitamin [One Daily Essential] 1 tab PO DAILY 01/12/18 [History] Torsemide [Demadex] 20 mg PO BID 01/12/18 [History] Trazodone HCl 100 mg PO HS 01/12/18 [History] hydrALAZINE [HydrALAZINE] 10 mg PO BID 01/12/18 [History] 3 Allergy/AdvReac Type Severity Reaction Status Date / Time No Known Allergies Allergy Verified 07/07/17 08:37 All Systems Review: The remainder of the systems were reviewed and are negative - Cardiovascular Cardiovascular: chest pain at rest, chest pain with exertion, dyspnea on exertion, radiating jaw, neck or arm pain, leg edema - Respiratory Respiratory: dyspnea - Gastrointestinal Gastrointestinal: nausea Physical Examination Vital Signs, Last 4 Hours Temp Pulse Resp BP Pulse Ox 01/13/18 11:44 98.0 F 60 18 147/79 94 Vital Signs Temp Pulse Resp BP Pulse Ox 01/13/18 11:44 98.0 F 60 18 147/79 94 01/13/18 07:17 98.0 F 62 17 162/75 98 01/13/18 03:44 98.5 F 60 17 155/73 96 01/12/18 22:50 98.2 F 69 16 118/62 94 01/12/18 17:41 98.2 F 74 16 154/75 96 01/12/18 16:50 16 146/61 01/12/18 16:00 70 16 137/53 99 01/12/18 15:30 71 16 134/61 100 01/12/18 14:39 98.4 F 78 18 153/58 98 Intake and Output 01/12/18 01/13/18 01/13/18 23:59 07:59 15:59 Intake Total 240 / 240 240 / 240 Output Total 900 / 900 250 / 250 Balance -660 / -660 -250 / -250 240 / 240 Intake: Oral 240 / 240 240 / 240 Output: Urine 900 / 900 250 / 250 Other: Meal Breakfast Percent of Meal Consumed 100% Blood Glucose* 204 341 164 General: Conversant, No Apparent Distress HEENT: Atraumatic, Normocephaly, Mucus Membranes Moist Neck: No JVD, Normal carotid pulses Cardiac: Reg Rate and Rhythm, Normal S1 and S2, No Murmur Lungs: Other (diminished) Neuro: Alert and responsive, No focal deficits noted Abdomen: Soft, Non-Tender Skin: No rashes noted on visualized skin Musculoskeletal: No Chest Wall Tenderness Extremities: Other (2+ BLE edema ) Results 01/13/18 02:29 01/13/18 02:29 Lab Results 01/12/18 01/13/18 01/13/18 20:38 02:29 02:29 WBC 5.9 Hgb 7.9 L Hct 26.4 L Plt Count 185 Sodium Potassium Chloride Carbon Dioxide BUN Creatinine Glucose Calcium Magnesium Troponin I 0.04 H* 0.03 01/13/18 02:29 WBC Hgb Hct Plt Count Sodium 141 Potassium 4.7 Chloride 107 Carbon Dioxide 28 BUN 30 H Creatinine 2.11 H Glucose 274 H Calcium 8.4 L Magnesium 1.8 Troponin I Short CBC 01/13/18 01/12/18 Range/Units 02:29 14:57 WBC 5.9 8.8 (4.3-11.1) K/mcL Hgb 7.9 L 8.7 L (12.9-16.9) g/dL Hct 26.4 L 29.1 L (37.5-50.1) % Plt Count 185 228 (140-400) K/mcL Neutrophils # 3.0 6.0 (1.6-8.9) K/mcL BMP 01/13/18 01/12/18 Range/Units 02:29 14:57 Sodium 141 139 (136-145) mEq/L Potassium 4.7 4.1 (3.5-5.1) mEq/L Chloride 107 105 (98-107) mEq/L Carbon Dioxide 28 28 (23-29) mEq/L BUN 30 H 30 H (8-23) mg/dL Creatinine 2.11 H 1.92 H (0.70-1.30) mg/dL Glucose 274 H 188 H (70-105) mg/dL Calcium 8.4 L 8.7 (8.6-10.3) mg/dL Cardiac Enzymes 01/13/18 01/12/18 01/12/18 Range/Units 02:29 20:38 14:57 Troponin I 0.03 0.04 H* 0.04 H* (< 0.04) ng/mL Impressions Chest X-Ray 01/12/18 14:42 IMPRESSION: 1. Nonspecific mild central bronchial wall thickening which could relate to acute versus chronic bronchitis. 2. No acute pneumonia or pulmonary edema. D/ / 01/12/2018 15:37:13 Zach Shahdi MD / ana cristina Interpreting Provider: Zach Shahid MD Echocardiogram Limited Views 01/12/18 17:04 Impressions: Limited Echo. Technically sub-optimal poor echo windows and lack of LV contrast. LVEF grossly 55%%. LV endocardium not seen, wall motion unable to determine. Mildly dilated left ventricle. Mild concentric left ventricular hypertrophy. RV not well seen. mildly dilated right ventricle. Mild right ventricular hypokinesis. Mildly dilated left atrium and right atrium. Findings: Comments * Limited Echo. Study Quality * Technical review due to lack of LV contrast. * Technically sub-optimal due to body habitus and poor echo windows. ECG Findings * Normal sinus rhythm. Left Ventricle * Mild concentric left ventricular hypertrophy. * Mildly dilated left ventricle. * Definity echo contrast was not used. * LV endocardium not seen, wall motion unable to determine due to lack of LV contrast * LVEF grossly 55%%. Right Ventricle * RV not well seen * Mildly dilated right ventricle. * Mild right ventricular hypokinesis. Left Atrium * Mildly dilated left atrium. Right Atrium * Mildly dilated right atrium. Active Medications Acetaminophen (Tylenol) 650 mg PO Q6HR PRN PRN Reason: Mild Pain/Fever Stop: 07/14/18 16:57 Ascorbic Acid (Vitamin C) 250 mg PO DAILY KHANH Stop: 07/15/18 09:01 Last Admin: 01/13/18 08:19 Dose: 250 mg Aspirin (Aspirin) 81 mg PO DAILY KHANH Stop: 07/15/18 09:01 Last Admin: 01/13/18 08:19 Dose: 81 mg Atorvastatin Calcium (Lipitor) 40 mg PO HS KHANH Stop: 07/14/18 21:01 Last Admin: 01/12/18 21:56 Dose: 40 mg Dextrose/Water (Dextrose 50% (Syg)) 25 ml IVP AD PRN PRN Reason: Hypoglycemia Stop: 07/14/18 17:46 Ferrous Sulfate (Ferrous Sulfate) 325 mg PO BIDWM KHANH Stop: 07/14/18 18:16 Last Admin: 01/13/18 08:19 Dose: 325 mg Furosemide (Lasix) 40 mg IVP BIDDIURETIC [facility] Stop: 07/14/18 18:16 Last Admin: 01/13/18 08:19 Dose: 40 mg Gabapentin (Neurontin) 800 mg PO BID [facility] Stop: 07/14/18 21:01 Last Admin: 01/13/18 08:18 Dose: 800 mg Glucagon (Glucagen) 1 mg IM ONCE PRN PRN Reason: Hypoglycemia Stop: 07/14/18 17:46 Glucose (Gluctose) 15 gm PO ONCE PRN PRN Reason: Hypoglycemia Stop: 07/14/18 17:46 Glucose (Gluctose) 30 gm PO ONCE PRN PRN Reason: Hypoglycemia Stop: 07/14/18 17:46 Heparin Sodium (Porcine) (Heparin) 5,000 unit SQ Q12HCO [facility] Stop: 07/14/18 18:01 Last Admin: 01/13/18 06:25 Dose: 5,000 unit Hydralazine HCl (Hydralazine) 10 mg PO BID [facility] Stop: 07/14/18 21:01 Last Admin: 01/13/18 08:19 Dose: 10 mg Dextrose (Dextrose 5%) 1,000 mls @ 100 mls/hr IVC .Q10H PRN PRN Reason: HYPOGLYCEMIA Stop: 07/14/18 17:46 Insulin Detemir (Levemir) 48 unit SQ BID [facility] Stop: 07/15/18 21:01 Insulin Human Lispro (Humalog) 17 units SQ TIDWM [facility] Stop: 07/15/18 12:01 Last Admin: 01/13/18 12:24 Dose: 17 units Multivitamins/Calcium (Thera M Plus) 1 tab PO DAILY [facility] Stop: 07/15/18 09:01 Last Admin: 01/13/18 08:19 Dose: 1 tab Naloxone HCl (Narcan) 0.4 mg IVP Q2MIN PRN PRN Reason: SEE COMMENTS Stop: 07/14/18 16:57 Nitroglycerin (Nitroglycerin) 0.4 mg SL Q5MIN PRN PRN Reason: Chest Pain Stop: 07/14/18 18:13 Ondansetron HCl (Zofran) 4 mg IVP Q6HR PRN; Protocol PRN Reason: Nausea And Vomiting Stop: 07/14/18 20:22 Last Admin: 01/13/18 11:01 Dose: 4 mg Oxycodone/Acetaminophen (Percocet 10/325) 1 each PO Q8HR PRN PRN Reason: Moderate Pain Stop: 07/14/18 17:01 Last Admin: 01/13/18 08:58 Dose: 1 each Promethazine HCl (Phenergan) 12.5 mg IVP Q6HR PRN PRN Reason: Nausea And Vomiting Stop: 07/14/18 20:23 Last Admin: 01/13/18 11:24 Dose: 12.5 mg Trazodone HCl (Trazodone) 100 mg PO HS KHANH Stop: 07/14/18 21:01 Last Admin: 01/12/18 21:57 Dose: 100 mg Vitamin D (Vitamin D) 1,000 unit PO DAILY [facility]AN[facility] Stop: 07/15/18 09:01 Last Admin: 01/13/18 08:19 Dose: 1,000 unit - Imaging and Cardiology Echo: report reviewed - EKG Interpretation EKG results cardiology: personally reviewed, other (12 hr tele AVG HR 61, SR, no significant pauses or arrhythmias.) Consult Discharge Plan - Plan [facility]errals: [facility] [Primary Care Provider] -
[2018-01-13] MEDS ORDERED: Isosorbide MONOnitrate (24 HR) 30 MG TAB.ER.24H PO SCH (13:00)
[2018-01-13] MEDS ORDERED: Metoprolol XL (24 HR) Succ 25 MG TAB.ER.24H PO SCH (13:00)
[2018-01-13 14:51] LABS: Hematocrit 30.5 % (37.5-50.1)
[2018-01-13] MEDS ORDERED: INSULIN ASPART SQ SCH (15:00)
[2018-01-13] MEDS: traZODone 50 MG TABLET PO SCH (20:23)
[2018-01-13 20:30] LABS: Hematocrit 27.9 % (37.5-50.1); Hemoglobin 8.3 g/dL (12.9-16.9)
[2018-01-13] MEDS: Insulin DETEMIR 100 UNIT/ML X5UNITS SQ SCH (20:56)
[2018-01-13] MEDS ORDERED: INSULIN GLARGINE SQ SCH (21:00)
[2018-01-13] MEDS: Isosorbide MONOnitrate (24 HR) 30 MG TAB.ER.24H PO SCH (23:58)
[2018-01-13] MEDS: Metoprolol XL (24 HR) Succ 25 MG TAB.ER.24H PO SCH (23:58)
[2018-01-14 01:59] LABS: Hematocrit 27.5 % (37.5-50.1); Hemoglobin 8.1 g/dL (12.9-16.9)
[2018-01-14] MEDS: *HR* Heparin 5,000 UNIT/ML VIAL SQ SCH ×2 (06:06→17:13)
[2018-01-14 06:37] LABS: Basophils % 0.3 %; Eosinophils # 0.2 K/mcL (0.0-0.6); Eosinophils % 2.7 %; Hematocrit 28.2 % (37.5-50.1); Hemoglobin 8.2 g/dL (12.9-16.9); Immature Granulocytes % 1.3 % (0-4); Lymphocytes # 2.9 K/mcL (0.6-4.6); Lymphocytes % 38.9 %; Mean Corpuscular HGB Conc 29.1 g/dL (31.6-35.5); Mean Corpuscular Volume 82.7 fL (83.0-100.0); Monocytes # 0.6 K/mcL (0.0-1.3); Monocytes % 7.7 %; Neutrophils # 3.7 K/mcL (1.6-8.9); Nucleated Red Blood Cells 0.3 /100 WBC (0); Platelet Count 213 K/mcL (140-400); Red Blood Count 3.41 M/mcL (4.19-5.50); Segmented Neutrophils % 49.1 %
[2018-01-14 07:02] LABS: Chol/HDL Ratio 2.8 (0-4.9)
[2018-01-14] MEDS: Furosemide 40 MG/4 ML VIAL IVP SCH (07:36)
[2018-01-14] MEDS: Gabapentin 400 MG CAPSULE PO SCH ×2 (07:36→20:36)
[2018-01-14] MEDS: Metoprolol XL (24 HR) Succ 25 MG TAB.ER.24H PO SCH (07:36)
[2018-01-14] MEDS: Isosorbide MONOnitrate (24 HR) 30 MG TAB.ER.24H PO SCH (07:37)
[2018-01-14] MEDS: hydrALAZINE 10 MG TABLET PO SCH ×2 (07:37→20:36)
[2018-01-14] MEDS: Insulin DETEMIR 100 UNIT/ML X5UNITS SQ SCH ×2 (07:37→20:35)
[2018-01-14] MEDS: Multivit/Ca/Min/Fe/FA 1 TAB TABLET PO SCH (07:37)
[2018-01-14] MEDS: Aspirin 81 MG TAB.CHEW PO SCH (07:37)
[2018-01-14] MEDS: Ascorbic Acid 500 MG TABLET PO SCH (07:37)
[2018-01-14] MEDS: Cholecalciferol (D-3) 1,000 UNIT TABLET PO SCH (07:37)
[2018-01-14] MEDS: *HR* Promethazine 25 MG/ML VIAL IVP PRN ×3 (07:40→20:35)
[2018-01-14] MEDS: Insulin LISPRO 300 UNITS/3 ML VIAL SQ SCH ×5 (07:41→20:36)
[2018-01-14 09:34] LABS: Hematocrit 28.8 % (37.5-50.1); Hemoglobin 8.2 g/dL (12.9-16.9)
[2018-01-14 09:51] LABS: Calcium 8.4 mg/dL (8.6-10.3); Potassium 4.9 mEq/L (3.5-5.1)
[2018-01-14] MEDS: *HR* OxyCODONE/APAP 10/325 TABLET PO PRN ×2 (12:23→20:35)
--- NOTE | 2018-01-14 14:00 | Internal Med Progress Note ---
Hospitalist Progress Note - Encounter Date of Encounter: 01/14/18 Time of Encounter: 14:00 - Subjective Interval History: No acute changes over night, shortness of breath improving. Chest pain has resolved - Exam Vitals: Temp Pulse Resp BP Pulse Ox 98.1 F 66 18 126/69 95 01/14/18 11:10 01/14/18 11:10 01/14/18 11:10 01/14/18 11:10 01/14/18 11:10 Exam: PHYSICAL EXAMINATION: GENERAL: The patient is obese male, in no distress; A&O x3 HEENT: Head is normocephalic and atraumatic. Extraocular muscles are intact. Pupils are equal, round, and reactive to light and accommodation NECK: Supple. No carotid bruits. No lymphadenopathy or thyromegaly. LUNGS: Clear to auscultation AP&L B/L throughout. HEART: Regular rate and rhythm, S1, S2, without murmurs, rubs or gallops. ABDOMEN: Soft, nontender, and nondistended. Positive bowel sounds. No hepatosplenomegaly was noted. EXTREMITIES: Without any cyanosis, clubbing, rash, lesions. B/L 2+ pitting edema NEUROLOGIC: Cranial nerves II through XII are grossly intact. SKIN: No ulceration or induration present. - Assessment and Plan (1) Chest pain Current Visit: Yes Status: Acute Assessment and Plan: Presented with intermittent chest pain with exertion as well as dyspnea, diaphoresis and dizziness Ultimately risk factors for CAD including HTN, HLD, DM, morbid obesity. Has a family history of early cardiac demise ECG without ischemic changes, borderline troponin elevation 0.042 then negative in the setting of CKD and anemia With continued chest pain and patient's risk factors cardiology was consult Thank you for seeing in consultation; per cardiology there are no urgent need for inpatient transfer, continue to monitor. Continue ASA, statin add low-dose beta bebe and Imdur Patient unable to have further cardiac evaluation at this facility should evaluation and to be completed he will need to be transferred to [facility] He is to follow-up with cardiology for further evaluation upon discharge Continue telemetry 01/14--Chest pain has resolved. Continue to monitor as it occurs intermittently. The patient developed symptomatic chest pain consider transfer to [facility] cardiology for further evaluation as due to body habitus we are unable to perform additional workup or intervention at [facility] Plan of care has been discussed with patient he was in agreement (2) CKD (chronic kidney disease) stage 3, GFR 30-59 ml/min Current Visit: No Status: Chronic Assessment and Plan: History of CKD 3 Baseline creatinine variable around 1.9-2.0 SS CR worsening today; acute on chronic kidney injury secondary to overdiuresis with IV diuretics Reports that he is noncompliant and does not follow with nephrology closely We will continue to monitor closely Monitor intake and output daily weights Avoid Nephrotoxins Renal diet 01/14--discontinue IV diuretics, monitor renal function (3) CHANELL (obstructive sleep apnea) Current Visit: No Status: Chronic Assessment and Plan: her history Continue with CPAP at night (4) Anemia Current Visit: Yes Status: Acute Assessment and Plan: Chronic anemia in the setting of renal disease; 01/14 stable Hemoglobin ranges 7-8; has followed nephrology in the past for anemia No obvious S SX of bleeding Continue to closely monitor Recheck labs in the morning (5) CHF (congestive heart failure) Current Visit: Yes Status: Acute Assessment and Plan: Patient presented with elevated BNP and bilateral lower extremity 2+ pitting edema 01/13--BLE pitting edema persists, fine bibasilar rales per auscultation Continue IV diuretics, low sodium diet, 1500 mL fluid restriction and cardiac monitoring TTE with EF preserved, LV endocardium not well seen, wall motion unable to be determined due to body habitus. Mildly dilated LV, mild cLVH, RV not well seen due to body habitus. Mildly dilated RV, mild RV hypokinesis, mildly dilated LA and RA 01/14--BLE edema slightly improved. Will hold all diuretics at this time as patient has had an acute on chronic kidney injury. Resume diuretics as renal function improves. Lungs are clear/diminished throughout bilaterally AP and L. Patient is not in any respiratory distress this time. (6) [id number] kidney injury Current Visit: Yes Status: Acute Assessment and Plan: As above (7) Declining functional status Current Visit: Yes Status: Acute Assessment and Plan: PT/OT continue to work with patient throughout stay; recommend SNF at discharge , case management social worker and nurse navigator working on discharge to SNF and in [place]. Pending approval (8) DVT prophylaxis Current Visit: Yes Status: Acute Assessment and Plan: Heparin - Time Spent with Patient Total time spent is greater than 50% in coordination of care (as documented) at patient's floor/unit and/or counseling patient: less than 15 minutes Plan of Care Discussed with: patient Internal Medicine: Result - Labs CBC & Chem 7: 01/14/18 08:58 01/14/18 08:58 Labs: Short CBC 01/13/18 01/13/18 01/14/18 Range/Units 14:12 20:00 01:46 WBC (4.3-11.1) K/mcL Hgb 9.0 L 8.3 L 8.1 L (12.9-16.9) g/dL Hct 30.5 L 27.9 L 27.5 L (37.5-50.1) % Plt Count (140-400) K/mcL Neutrophils # (1.6-8.9) K/mcL 01/14/18 01/14/18 Range/Units 05:20 08:58 WBC 7.5 (4.3-11.1) K/mcL Hgb 8.2 L 8.2 L (12.9-16.9) g/dL Hct 28.2 L 28.8 L (37.5-50.1) % Plt Count 213 (140-400) K/mcL Neutrophils # 3.7 (1.6-8.9) K/mcL BMP 01/14/18 08:58 Sodium 137 Potassium 4.9 Chloride 104 Carbon Dioxide 26 BUN 43 H Creatinine 2.74 H Glucose 335 H Calcium 8.4 L - ABG Interpretation ABG results: PT/INR, D-dimer PT 12.5 Seconds (9.4-12.1) H 01/12/18 14:57 Consult Discharge Plan - Plan [facility]errals: [facility] [Primary Care Provider] - (1) Chest pain Qualifiers: Chest pain type: unspecified Qualified Code(s): R07.9 - Chest pain, unspecified (4) Anemia Qualifiers: Anemia type: unspecified type Qualified Code(s): D64.9 - Anemia, unspecified (5) CHF (congestive heart failure) Qualifiers: Heart failure type: unspecified Heart failure chronicity: unspecified Qualified Code(s): I50.9 - Heart failure, unspecified (6) [id number] kidney injury Qualifiers: Acute renal failure type: unspecified Chronic kidney disease stage: stage 3 ( moderate) Qualified Code(s): N17.9 - Acute kidney failure, unspecified; N18.3 - Chronic kidney disease, stage 3 (moderate)
[2018-01-14 14:26] LABS: Hematocrit 27.7 % (37.5-50.1); Hemoglobin 8.2 g/dL (12.9-16.9)
[2018-01-14 20:07] LABS: Hematocrit 29.1 % (37.5-50.1); Hemoglobin 8.5 g/dL (12.9-16.9)
[2018-01-14] MEDS: traZODone 50 MG TABLET PO SCH (20:36)
[2018-01-14] MEDS ORDERED: Furosemide 40 MG TABLET PO SCH (21:00)
[2018-01-15] MEDS: *HR* Heparin 5,000 UNIT/ML VIAL SQ SCH ×2 (05:29→17:26)
[2018-01-15 06:58] LABS: Basophils % 0.4 %; Eosinophils # 0.3 K/mcL (0.0-0.6); Eosinophils % 3.2 %; Hematocrit 30.3 % (37.5-50.1); Hemoglobin 8.8 g/dL (12.9-16.9); Immature Granulocytes % 0.5 % (0-4); Lymphocytes # 3.4 K/mcL (0.6-4.6); Lymphocytes % 41.6 %; Mean Corpuscular Hemoglobin 23.8 pg (28.0-33.3); Mean Corpuscular Volume 81.9 fL (83.0-100.0); Mean Platelet Volume 11.1 fL (9.4-12.4); Monocytes # 0.7 K/mcL (0.0-1.3); Monocytes % 8.6 %; Neutrophils # 3.7 K/mcL (1.6-8.9); Platelet Count 222 K/mcL (140-400); Red Cell Distribution Width 14.2 % (11.5-14.5); Segmented Neutrophils % 45.7 %
[2018-01-15 07:34] LABS: Calcium 8.6 mg/dL (8.6-10.3); Potassium 5.9 mEq/L (3.5-5.1)
[2018-01-15] MEDS: Isosorbide MONOnitrate (24 HR) 30 MG TAB.ER.24H PO SCH (08:55)
[2018-01-15] MEDS: Aspirin 81 MG TAB.CHEW PO SCH (08:55)
[2018-01-15] MEDS: hydrALAZINE 10 MG TABLET PO SCH ×2 (08:55→20:22)
[2018-01-15] MEDS: Insulin LISPRO 300 UNITS/3 ML VIAL SQ SCH ×7 (08:56→20:23)
[2018-01-15] MEDS: Insulin DETEMIR 100 UNIT/ML X5UNITS SQ SCH ×2 (08:56→20:27)
[2018-01-15] MEDS: Ascorbic Acid 500 MG TABLET PO SCH (08:56)
[2018-01-15] MEDS: Multivit/Ca/Min/Fe/FA 1 TAB TABLET PO SCH (08:56)
[2018-01-15] MEDS: Gabapentin 400 MG CAPSULE PO SCH ×2 (08:56→20:22)
[2018-01-15] MEDS: Cholecalciferol (D-3) 1,000 UNIT TABLET PO SCH (08:56)
[2018-01-15] MEDS: Metoprolol XL (24 HR) Succ 25 MG TAB.ER.24H PO SCH (08:56)
[2018-01-15] MEDS: *HR* OxyCODONE/APAP 10/325 TABLET PO PRN ×2 (09:03→17:26)
[2018-01-15] MEDS: *HR* Promethazine 25 MG/ML VIAL IVP PRN (09:03)
--- NOTE | 2018-01-15 10:36 | Electrocardiograph Report ---
[address] [address] Test Date: 2018-01-12 Pat Name: Manpreet Mccoy Department: [id number] Room: 3B46 Gender: M Lawn Service Manager: : [id number] Requested By: Bang Caceres Order Number: [id number] Reading MD: Cosme Larry Measurements Intervals [place] Rate: 76 P: 48 AL: 192 QRS: 45 QRSD: 98 T: 49 QT: 384 QTc: 432 Interpretive Statements Normal sinus rhythm Electronically Signed On 01-15-2018 10:34:57 EDT by Cosme Larry
[2018-01-15] MEDS ORDERED: MOM Conc 10 ML UD.LIQ PO ONE (14:20)
--- NOTE | 2018-01-15 15:06 | Internal Med Progress Note ---
Hospitalist Progress Note - Encounter Date of Encounter: 01/15/18 Time of Encounter: 15:04 - Subjective Interval History: No acute changes over night, shortness of breath improving, BLE edema improving. Chest pain has resolved - Exam Vitals: Temp Pulse Resp BP Pulse Ox 98.1 F 61 19 131/71 99 01/15/18 11:57 01/15/18 11:57 01/15/18 11:57 01/15/18 11:57 01/15/18 11:57 Exam: PHYSICAL EXAMINATION: GENERAL: The patient is obese male, in no distress; A&O x3 HEENT: Head is normocephalic and atraumatic. Extraocular muscles are intact. Pupils are equal, round, and reactive to light and accommodation NECK: Supple. No carotid bruits. No lymphadenopathy or thyromegaly. LUNGS: Clear/diminished to auscultation AP&L B/L throughout. HEART: Regular rate and rhythm, S1, S2, without murmurs, rubs or gallops. ABDOMEN: Soft, nontender, and nondistended. Positive bowel sounds. No hepatosplenomegaly was noted. EXTREMITIES: Without any cyanosis, clubbing, rash, lesions. B/L 2+ pitting edema improving but remain 2+ extending to mid calf NEUROLOGIC: Cranial nerves II through XII are grossly intact. SKIN: Multiple small pressure ulcers beneath pannis and in upper left inner thigh - Assessment and Plan (1) Chest pain Current Visit: Yes Status: Acute Assessment and Plan: Presented with intermittent chest pain with exertion as well as dyspnea, diaphoresis and dizziness Ultimately risk factors for CAD including HTN, HLD, DM, morbid obesity. Has a family history of early cardiac demise ECG without ischemic changes, borderline troponin elevation 0.042 then negative in the setting of CKD and anemia With continued chest pain and patient's risk factors cardiology was consult Thank you for seeing in consultation; per cardiology there are no urgent need for inpatient transfer, continue to monitor. Continue ASA, statin add low-dose beta bebe and Imdur Patient unable to have further cardiac evaluation at this facility should evaluation and to be completed he will need to be transferred to [facility] He is to follow-up with cardiology for further evaluation upon discharge Continue telemetry 01/14--Chest pain has resolved. Continue to monitor as it occurs intermittently. The patient developed symptomatic chest pain consider transfer to [facility] cardiology for further evaluation as due to body habitus we are unable to perform additional workup or intervention at [facility]. Plan of care has been discussed with patient he was in agreement 104/--Admitted with CHF and CP. CP intermittent, currently CP free. Declines further evaluation at tertiary facility (2) CKD (chronic kidney disease) stage 3, GFR 30-59 ml/min Current Visit: No Status: Chronic Assessment and Plan: History of CKD 3 Baseline creatinine variable around 1.9-2.0 SS CR worsening today; acute on chronic kidney injury secondary to overdiuresis with IV diuretics Reports that he is noncompliant and does not follow with nephrology closely We will continue to monitor closely Monitor intake and output daily weights Avoid Nephrotoxins Renal diet 01/14--discontinue IV diuretics, monitor renal function 01/15--holding diuretics with JETHRO on CKD; likely 2/2 IV diuretic use. Continue to closely monitor renal function and avoid nephrotoxins. Consult nephrology; thank you. (3) CHANELL (obstructive sleep apnea) Current Visit: No Status: Chronic Assessment and Plan: her history Continue with CPAP at night (4) Anemia Current Visit: Yes Status: Acute Assessment and Plan: Chronic anemia in the setting of renal disease; 01/15 stable Hemoglobin ranges 7-8; has followed nephrology in the past for anemia No obvious S SX of bleeding Continue to closely monitor Recheck labs in the morning (5) CHF (congestive heart failure) Current Visit: Yes Status: Acute Assessment and Plan: Patient presented with elevated BNP and bilateral lower extremity 2+ pitting edema 01/13--BLE pitting edema persists, fine bibasilar rales per auscultation Continue IV diuretics, low sodium diet, 1500 mL fluid restriction and cardiac monitoring TTE with EF preserved, LV endocardium not well seen, wall motion unable to be determined due to body habitus. Mildly dilated LV, mild cLVH, RV not well seen due to body habitus. Mildly dilated RV, mild RV hypokinesis, mildly dilated LA and RA 01/14--BLE edema slightly improved. Will hold all diuretics at this time as patient has had an acute on chronic kidney injury. Resume diuretics as renal function improves. Lungs are clear/diminished throughout bilaterally AP and L. Patient is not in any respiratory distress this time. 01/15--BLE edema continuing to improve. Acute on chronic kidney injury continue holding diuretics, renal function stable at this time. Patient Negative fluid volume 1.6 L, continue to strictly monitor I's and O's and obtain daily weights. Lungs are clear/diminished throughout AP and L bilaterally patient resting comfortably on room air. (6) Ecpvm-vf-fmhedyc kidney injury Current Visit: Yes Status: Acute Assessment and Plan: As above (7) Declining functional status Current Visit: Yes Status: Acute Assessment and Plan: PT/OT continue to work with patient throughout stay; recommend SNF at discharge , case management social worker and nurse navigator working on discharge to SNF in [facility]. Pending approval (8) DVT prophylaxis Current Visit: Yes Status: Acute Assessment and Plan: SQ Heparin (9) Hyperkalemia Current Visit: Yes Status: Acute Assessment and Plan: Potassium 5.9 likely 2/2 decline in renal function give 15mg kayexelate now recheck in the am - Time Spent with Patient Total time spent is greater than 50% in coordination of care (as documented) at patient's floor/unit and/or counseling patient: less than 15 minutes Plan of Care Discussed with: patient Internal Medicine: Result - Labs CBC & Chem 7: 01/15/18 06:38 01/15/18 06:38 Labs: Short CBC 01/14/18 01/15/18 Range/Units 19:51 06:38 WBC 8.2 (4.3-11.1) K/mcL Hgb 8.5 L 8.8 L (12.9-16.9) g/dL Hct 29.1 L 30.3 L (37.5-50.1) % Plt Count 222 (140-400) K/mcL Neutrophils # 3.7 (1.6-8.9) K/mcL BMP 01/15/18 06:38 Sodium 137 Potassium 5.9 H Chloride 106 Carbon Dioxide 22 L BUN 51 H Creatinine 2.69 H Glucose 191 H Calcium 8.6 - ABG Interpretation ABG results: PT/INR, D-dimer PT 12.5 Seconds (9.4-12.1) H 01/12/18 14:57 Consult Discharge Plan - Plan [facility]: [facility] [Primary Care Provider[facility] - (1) Chest pain Qualifiers: Chest pain type: unspecified Qualified Code(s): R07.9 - Chest pain, unspecified (4) Anemia Qualifiers: Anemia type: unspecified type Qualified Code(s): D64.9 - Anemia, unspecified (5) CHF (congestive heart failure) Qualifiers: Heart failure type: unspecified Heart failure chronicity: unspecified Qualified Code(s): I50.9 - Heart failure, unspecified (6) Ikjil-ce-aqjyqfs kidney injury Qualifiers: Acute renal failure type: unspecified Chronic kidney disease stage: stage 3 ( moderate) Qualified Code(s): N17.9 - Acute kidney failure, unspecified; N18.3 - Chronic kidney disease, stage 3 (moderate)
[2018-01-15] MEDS: Miconazole 2% ointment 114 GM TUBE TP SCH (16:46)
[2018-01-15] MEDS: traZODone 50 MG TABLET PO SCH (20:22)
[2018-01-16 05:45] LABS: Calcium 8.4 mg/dL (8.6-10.3); Potassium 5.2 mEq/L (3.5-5.1)
[2018-01-16 05:48] LABS: Basophils % 0.1 %; Eosinophils # 0.2 K/mcL (0.0-0.6); Eosinophils % 2.9 %; Hematocrit 26.9 % (37.5-50.1); Hemoglobin 7.9 g/dL (12.9-16.9); Immature Granulocytes % 1.4 % (0-4); Lymphocytes # 2.9 K/mcL (0.6-4.6); Lymphocytes % 35.8 %; Mean Corpuscular HGB Conc 29.4 g/dL (31.6-35.5); Mean Corpuscular Hemoglobin 24.2 pg (28.0-33.3); Mean Corpuscular Volume 82.3 fL (83.0-100.0); Mean Platelet Volume 10.4 fL (9.4-12.4); Monocytes # 0.7 K/mcL (0.0-1.3); Monocytes % 8.3 %; Neutrophils # 4.2 K/mcL (1.6-8.9); Platelet Count 204 K/mcL (140-400); Red Blood Count 3.27 M/mcL (4.19-5.50); Segmented Neutrophils % 51.5 %
[2018-01-16] MEDS: *HR* Heparin 5,000 UNIT/ML VIAL SQ SCH ×2 (06:01→18:37)
[2018-01-16] MEDS: Ascorbic Acid 500 MG TABLET PO SCH (09:17)
[2018-01-16] MEDS: Gabapentin 400 MG CAPSULE PO SCH ×2 (09:17→21:17)
[2018-01-16] MEDS: hydrALAZINE 10 MG TABLET PO SCH ×2 (09:17→21:17)
[2018-01-16] MEDS: Metoprolol XL (24 HR) Succ 25 MG TAB.ER.24H PO SCH (09:17)
[2018-01-16] MEDS: Aspirin 81 MG TAB.CHEW PO SCH (09:17)
[2018-01-16] MEDS: Multivit/Ca/Min/Fe/FA 1 TAB TABLET PO SCH (09:17)
[2018-01-16] MEDS: Insulin LISPRO 300 UNITS/3 ML VIAL SQ SCH ×7 (09:18→21:15)
[2018-01-16] MEDS: Cholecalciferol (D-3) 1,000 UNIT TABLET PO SCH (09:18)
[2018-01-16] MEDS: Isosorbide MONOnitrate (24 HR) 30 MG TAB.ER.24H PO SCH (09:18)
[2018-01-16] MEDS: *HR* Promethazine 25 MG/ML VIAL IVP PRN (09:20)
[2018-01-16] MEDS: Insulin DETEMIR 100 UNIT/ML X5UNITS SQ SCH ×2 (09:20→21:17)
[2018-01-16] MEDS: Miconazole 2% ointment 114 GM TUBE TP SCH ×2 (09:35→21:17)
--- NOTE | 2018-01-16 11:20 | Internal Med Progress Note ---
Hospitalist Progress Note - Encounter Date of Encounter: 01/16/18 Time of Encounter: 11:17 - Subjective Interval History: No acute changes over night, shortness of breath improving, BLE edema continues to improve. Chest pain has resolved - Exam Vitals: Temp Pulse Resp BP Pulse Ox 98.8 F 64 16 134/68 94 01/16/18 07:07 01/16/18 07:07 01/16/18 07:07 01/16/18 07:07 01/16/18 07:07 Exam: PHYSICAL EXAMINATION: GENERAL: The patient is a morbidly obese male, in no distress; A&O x3 HEENT: Head is normocephalic and atraumatic. Extraocular muscles are intact. Pupils are equal, round, and reactive to light and accommodation NECK: Supple. No carotid bruits. No lymphadenopathy or thyromegaly. LUNGS: Clear/diminished to auscultation AP&L B/L throughout. HEART: Regular rate and rhythm, S1, S2, without murmurs, rubs or gallops. ABDOMEN: Soft, nontender, and nondistended. Positive bowel sounds. No hepatosplenomegaly was noted. EXTREMITIES: Without any cyanosis, clubbing, rash, lesions. B/L 2+ pitting edema stable SKIN: Multiple small pressure ulcers beneath pannis and in upper left inner thigh - Assessment and Plan (1) Chest pain Current Visit: Yes Status: Acute Assessment and Plan: Presented with intermittent chest pain with exertion as well as dyspnea, diaphoresis and dizziness Ultimately risk factors for CAD including HTN, HLD, DM, morbid obesity. Has a family history of early cardiac demise ECG without ischemic changes, borderline troponin elevation 0.042 then negative in the setting of CKD and anemia With continued chest pain and patient's risk factors cardiology was consult Thank you for seeing in consultation; per cardiology there are no urgent need for inpatient transfer, continue to monitor. Continue ASA, statin add low-dose beta bebe and Imdur Patient unable to have further cardiac evaluation at this facility should evaluation and to be completed he will need to be transferred to [facility] He is to follow-up with cardiology for further evaluation upon discharge Continue telemetry 01/14--Chest pain has resolved. Continue to monitor as it occurs intermittently. The patient developed symptomatic chest pain consider transfer to [facility] cardiology for further evaluation as due to body habitus we are unable to perform additional workup or intervention at [facility]. Plan of care has been discussed with patient he was in agreement 01/15--Admitted with CHF and CP. CP intermittent, currently CP free. Declines further evaluation at tertiary facility 01/16--Intermittent CP persists, CP free. Continues to decline further evaluation at tertiary care facility (2) CKD (chronic kidney disease) stage 3, GFR 30-59 ml/min Current Visit: No Status: Chronic Assessment and Plan: History of CKD 3 Baseline creatinine variable around 1.9-2.0 SS CR worsening today; acute on chronic kidney injury secondary to overdiuresis with IV diuretics Reports that he is noncompliant and does not follow with nephrology closely We will continue to monitor closely Monitor intake and output daily weights Avoid Nephrotoxins Renal diet 01/14--discontinue IV diuretics, monitor renal function 01/15--holding diuretics with JETHRO on CKD; likely 2/2 IV diuretic use. Continue to closely monitor renal function and avoid nephrotoxins. Consult nephrology; thank you. 01/16--JETHRO persists. Nephrology to see in consultation, thank you. Hold nephrotoxins. Holding IVF d/t CHF (3) CHANELL (obstructive sleep apnea) Current Visit: No Status: Chronic Assessment and Plan: her history Continue with CPAP at night (4) Anemia Current Visit: Yes Status: Acute Assessment and Plan: Chronic anemia in the setting of renal disease; 01/16 stable Hemoglobin ranges 7-8; has followed nephrology in the past for anemia No obvious S SX of bleeding Continue to closely monitor Recheck labs in the morning (5) CHF (congestive heart failure) Current Visit: Yes Status: Acute Assessment and Plan: Patient presented with elevated BNP and bilateral lower extremity 2+ pitting edema 01/13--BLE pitting edema persists, fine bibasilar rales per auscultation Continue IV diuretics, low sodium diet, 1500 mL fluid restriction and cardiac monitoring TTE with EF preserved, LV endocardium not well seen, wall motion unable to be determined due to body habitus. Mildly dilated LV, mild cLVH, RV not well seen due to body habitus. Mildly dilated RV, mild RV hypokinesis, mildly dilated LA and RA 01/14--BLE edema slightly improved. Will hold all diuretics at this time as patient has had an acute on chronic kidney injury. Resume diuretics as renal function improves. Lungs are clear/diminished throughout bilaterally AP and L. Patient is not in any respiratory distress this time. 01/15--BLE edema continuing to improve. Acute on chronic kidney injury continue holding diuretics, renal function stable at this time. Patient Negative fluid volume 1.6 L, continue to strictly monitor I's and O's and obtain daily weights. Lungs are clear/diminished throughout AP and L bilaterally patient resting comfortably on room air. 01/16--BLE edema stable. Neck negative fluid volume 1.9 L. Patient without respiratory distress, lungs clear diminished bilaterally throughout AP and L. Resting comfortably on room air. Continue with plan as stated above. Continue holding diuretics in the setting of JETHRO (6) Wflqu-ci-xvslhro kidney injury Current Visit: Yes Status: Acute Assessment and Plan: As above (7) Declining functional status Current Visit: Yes Status: Acute Assessment and Plan: PT/OT continue to work with patient throughout stay; recommend SNF at discharge , social work instructor and nurse navigator working on discharge to SNF in [facility]. Pending approval (8) Hyperkalemia Current Visit: Yes Status: Acute Assessment and Plan: Potassium 5.2 today, continue to monitor; awaiting nephro recommendations (9) DVT prophylaxis Current Visit: Yes Status: Acute Assessment and Plan: SQ Heparin - Time Spent with Patient Total time spent is greater than 50% in coordination of care (as documented) at patient's floor/unit and/or counseling patient: less than 15 minutes Plan of Care Discussed with: patient Internal Medicine: Result - Labs CBC & Chem 7: 01/16/18 04:47 01/16/18 04:47 Labs: Short CBC 01/16/18 Range/Units 04:47 WBC 8.1 (4.3-11.1) K/mcL Hgb 7.9 L (12.9-16.9) g/dL Hct 26.9 L (37.5-50.1) % Plt Count 204 (140-400) K/mcL Neutrophils # 4.2 (1.6-8.9) K/mcL BMP 01/16/18 04:47 Sodium 138 Potassium 5.2 H Chloride 108 H Carbon Dioxide 24 BUN 54 H Creatinine 2.86 H Glucose 250 H Calcium 8.4 L - ABG Interpretation ABG results: PT/INR, D-dimer PT 12.5 Seconds (9.4-12.1) H 01/12/18 14:57 Consult Discharge Plan - Plan Referrals: [facility] [Primary Care Provider] - 01/26/18 10:00 am (1) Chest pain Qualifiers: Chest pain type: unspecified Qualified Code(s): R07.9 - Chest pain, unspecified (4) Anemia Qualifiers: Anemia type: unspecified type Qualified Code(s): D64.9 - Anemia, unspecified (5) CHF (congestive heart failure) Qualifiers: Heart failure type: unspecified Heart failure chronicity: unspecified Qualified Code(s): I50.9 - Heart failure, unspecified (6) Xgvvp-hp-rqigvaz kidney injury Qualifiers: Acute renal failure type: unspecified Chronic kidney disease stage: stage 3 ( moderate) Qualified Code(s): N17.9 - Acute kidney failure, unspecified; N18.3 - Chronic kidney disease, stage 3 (moderate)
[2018-01-16] MEDS: *HR* OxyCODONE/APAP 10/325 TABLET PO PRN ×2 (11:21→18:54)
--- NOTE | 2018-01-16 19:23 | Discharge Summary ---
Date of Encounter: 01/16/18 Time of Encounter: 19:20 - Discharge Diagnosis (1) Chest pain Priority: Primary Status: Acute Assessment and Plan: Presented with intermittent chest pain with exertion as well as dyspnea, diaphoresis and dizziness Ultimately risk factors for CAD including HTN, HLD, DM, morbid obesity. Has a family history of early cardiac demise ECG without ischemic changes, borderline troponin elevation 0.042 then negative in the setting of CKD and anemia With continued chest pain and patient's risk factors cardiology was consult Thank you for seeing in consultation; per cardiology there are no urgent need for inpatient transfer, continue to monitor. Continue ASA, statin add low-dose beta bebe and Imdur Patient unable to have further cardiac evaluation at this facility should evaluation and to be completed he will need to be transferred to [facility] He is to follow-up with cardiology for further evaluation upon discharge Continue telemetry 01/14--Chest pain has resolved. Continue to monitor as it occurs intermittently. The patient developed symptomatic chest pain consider transfer to [facility] cardiology for further evaluation as due to body habitus we are unable to perform additional workup or intervention at [facility]. Plan of care has been discussed with patient he was in agreement 01/15--Admitted with CHF and CP. CP intermittent, currently CP free. Declines further evaluation at tertiary facility 01/16--Intermittent CP persists, CP free. Continues to decline further evaluation at tertiary care facility Qualifiers: Chest pain type: unspecified Qualified Code(s): R07.9 - Chest pain, unspecified (2) CKD (chronic kidney disease) stage 3, GFR 30-59 ml/min Priority: Secondary Status: Chronic Assessment and Plan: History of CKD 3 Baseline creatinine variable around 1.9-2.0 SS CR worsening today; acute on chronic kidney injury secondary to overdiuresis with IV diuretics Reports that he is noncompliant and does not follow with nephrology closely We will continue to monitor closely Monitor intake and output daily weights Avoid Nephrotoxins Renal diet 01/14--discontinue IV diuretics, monitor renal function 01/15--holding diuretics with JETHRO on CKD; likely 2/2 IV diuretic use. Continue to closely monitor renal function and avoid nephrotoxins. Consult nephrology; thank you. 01/16--JETHRO persists. Nephrology to see in consultation, thank you. Hold nephrotoxins. Holding IVF d/t CHF. D/W nephrology; likely new baseline renal function. No further recommendations or interventions at this time. Continue to monitor renal function in the outpatient setting. [facility] provider to follow. Follow up with nephrology in the outpatient setting. (3) CHANELL (obstructive sleep apnea) Priority: Secondary Status: Chronic (4) Anemia Priority: Secondary Status: Acute Qualifiers: Anemia type: unspecified type Qualified Code(s): D64.9 - Anemia, unspecified (5) CHF (congestive heart failure) Priority: Secondary Status: Acute Assessment and Plan: Patient presented with elevated BNP and bilateral lower extremity 2+ pitting edema 01/13--BLE pitting edema persists, fine bibasilar rales per auscultation Continue IV diuretics, low sodium diet, 1500 mL fluid restriction and cardiac monitoring TTE with EF preserved, LV endocardium not well seen, wall motion unable to be determined due to body habitus. Mildly dilated LV, mild cLVH, RV not well seen due to body habitus. Mildly dilated RV, mild RV hypokinesis, mildly dilated LA and RA 10--BLE edema slightly improved. Will hold all diuretics at this time as patient has had an acute on chronic kidney injury. Resume diuretics as renal function improves. Lungs are clear/diminished throughout bilaterally AP and L. Patient is not in any respiratory distress this time. 01/15--BLE edema continuing to improve. Acute on chronic kidney injury continue holding diuretics, renal function stable at this time. Patient Negative fluid volume 1.6 L, continue to strictly monitor I's and O's and obtain daily weights. Lungs are clear/diminished throughout AP and L bilaterally patient resting comfortably on room air. 01/16--BLE edema stable. Neck negative fluid volume 1.9 L. Patient without respiratory distress, lungs clear diminished bilaterally throughout AP and L. Resting comfortably on room air. Continue with plan as stated above. Continue holding diuretics in the setting of JETHRO Qualifiers: Heart failure type: unspecified Heart failure chronicity: unspecified Qualified Code(s): I50.9 - Heart failure, unspecified (6) Herfl-rs-uttklij kidney injury Priority: Secondary Status: Acute Qualifiers: Acute renal failure type: unspecified Chronic kidney disease stage: stage 3 (moderate) Qualified Code(s): N17.9 - Acute kidney failure, unspecified; N18.3 - Chronic kidney disease, stage 3 (moderate) (7) Declining functional status Priority: Secondary Status: Acute (8) Hyperkalemia Priority: Secondary Status: Acute (9) DVT prophylaxis Priority: Secondary Status: Acute Hospital course: Mr. Mccoy is a 62 year old male Presented with intermittent chest pain with exertion as well as dyspnea, diaphoresis and dizziness Ultimately risk factors for CAD including HTN, HLD, DM, morbid obesity. Has a family history of early cardiac demise ECG without ischemic changes, borderline troponin elevation 0.042 then negative in the setting of CKD and anemia With continued chest pain and patient's risk factors cardiology was consult Thank you for seeing in consultation; per cardiology there are no urgent need for inpatient transfer, continue to monitor. Continue ASA, statin add low-dose beta bebe and Imdur Patient unable to have further cardiac evaluation at this facility should evaluation and to be completed he will need to be transferred to [facility] He is to follow-up with cardiology for further evaluation upon discharge Continue telemetry 01/14--Chest pain has resolved. Continue to monitor as it occurs intermittently. The patient developed symptomatic chest pain consider transfer to [facility] cardiology for further evaluation as due to body habitus we are unable to perform additional workup or intervention at [facility]. Plan of care has been discussed with patient he was in agreement 01/15--Admitted with CHF and CP. CP intermittent, currently CP free. Declines further evaluation at tertiary facility 01/16--Intermittent CP persists, CP free. Continues to decline further evaluation at tertiary care facility - Time Spent with Patient Total time spent providing and/or coordinating discharge services: - Discharge Medications Home Medications: Aspirin 81 mg PO DAILY 04/29/16 [History] Atorvastatin [Lipitor] 40 mg PO HS 04/29/16 [History] Insulin ASPART [NovoLOG] 17 unit SQ TID 04/29/16 [History] Insulin Glargine [Lantus] 48 unit SQ BID 04/29/16 [History] Cholecalciferol (D-3) [Vitamin D] 2,000 unit PO DAILY 10/08/16 [History] Albuterol Sulfate [Albuterol Inhaler] 2 puff IH QID PRN 01/17/17 [History] Ascorbic Acid [Vitamin C] 250 mg PO DAILY 01/17/17 [History] Ferrous Sulfate [Iron] 325 mg PO BID 01/17/17 [History] Gabapentin [Neurontin] 800 mg PO BID 07/07/17 [History] OxyCODONE/APAP 10/325 [Percocet 10/325 MG] 1 tab PO Q8HR PRN 07/07/17 [History] Multivitamin [One Daily Essential] 1 tab PO DAILY 01/12/18 [History] Torsemide [Demadex] 20 mg PO BID 01/12/18 [History] Trazodone HCl 100 mg PO HS 01/12/18 [History] hydrALAZINE [HydrALAZINE] 10 mg PO BID 01/12/18 [History] Allergies/Adverse Reactions: 3 Allergy/AdvReac Type Severity Reaction Status Date / Time No Known Allergies Allergy Verified 07/07/17 08:37 Date of admission: 01/12/18 16:09 Primary care physician: PCP [facility] Consults: 01/12/18 17:58 Consult to Occupational Therapy [CONS] Routine Comment: Evaluate, develop and implement POC Reason for Consult: Weakness Does patient have active BEDREST order?: No Is patient medically & hemodynamically stable?: Yes Patient assessed for mobility or mobilized this visit?: No Consult to Physical Therapy [CONS] Routine Comment: Evaluate, develop and implement POC Reason for Consult: Weakness Does patient have active BEDREST order?: No Is patient medically & hemodynamically stable?: Yes Patient assessed for mobility or mobilized this visit?: No 01/14/18 17:20 Consult to Wound Care [CONS] Routine Reason for Consult: multiple abominal wounds, left inner thigh wound with yellow drainage. pt is diabetic. Call Completed: Yes 01/15/18 15:12 Consult to Nephrology [CONS] Routine Consulting Provider: Kidney Yary/ADALID/LIU/AURE Reason for Consult: H/O CKD. Worsening renal function and hyperkalemia Time Notified: 15:13 Call Completed: Yes Discharging clinician: Dinesh Polanco Anticipated date of discharge: 01/16/18 - Constitutional Vitals: Temp Pulse Resp BP Pulse Ox 98.6 F 66 16 138/64 94 01/16/18 15:02 01/16/18 15:02 01/16/18 15:02 01/16/18 15:02 01/16/18 15:02 General appearance: Present: A&O X 3, morbidly obese - Patient Status Condition: Fair - Discharge Instructions Follow Up With: [facility],PCP [Primary Care Provider] - 01/26/18 10:00 am Forms: ED Satisfaction Letter
--- NOTE | 2018-01-16 19:29 | Nephrology Consult Note ---
Date of Encounter: 01/16/18 Time of Encounter: 16:00 Assessment and Plan (1) JETHRO (acute kidney injury) Current Visit: No Status: Acute Elevated SCr in the setting of diuresis Will check urine studies including UA, sodium, eosinophils and protein UOP decent at 1100cc in the past 24hrs but not amazing given diuretics Avoid nephrotoxins if possible (2) Hyperkalemia Current Visit: Yes Status: Acute Potassium noted improved at 5.2 from 5.9, continue renal diet Diuretics would help (3) Anemia Current Visit: No Status: Chronic Hgb noted at 7.9, has a chronic history. will monitor Qualifiers: Anemia type: iron deficiency Iron deficiency anemia type: unspecified iron deficiency Qualified Code(s): D50.9 - Iron deficiency anemia, unspecified (4) CKD (chronic kidney disease) stage 3, GFR 30-59 ml/min Current Visit: No Status: Chronic Baseline GFR around 40 (5) CHF (congestive heart failure) Current Visit: Yes Status: Acute LE edema appears to have a chronic component vs lymphedema and might benefit from LE wrapping Continue fluids restriction Continue diuretics for now, will add albumin to regimen for 1-2days for any improvemnet Qualifiers: Heart failure type: unspecified Heart failure chronicity: unspecified Qualified Code(s): I50.9 - Heart failure, unspecified History of Present Illness - Reason for Consult Consult date: 01/16/18 Acute Kidney Injury, Chronic Kidney Disease Requesting physician: Dinesh Polanco - History of Present Illness 62 y o AAmale with PMH of morbid obesity, DM, HTN, CHF EF 55%, CHANELL on cPAP, anemia and stage 3 CKD admitted with chest pain and SOB along with persistent LE edema. SCR on admission was 1.92, GFR 43 which actually within his baseline range. Renal function has worsened over hospital stay due to diuresis by primary team for CHF (lasix 20mg iv bid) with SCr now at 2.86, GFR 27. Pt gives very vague history but reports he is from [facility]. Denies having a chief credit officer but aware of some renal dysfunction in the past. Past Med Surg Social Fam HX - Past Medical History Medical history: CHF, diabetes, hyperlipidemia, hypertension, renal disease, other Psychiatric history: anxiety, depression, previous psychiatric hospitalization - Past Surgical History Surgical History: cholecystectomy - Social History Smoking Status: Never smoker Smokeless Tobacco Status: No Alcohol use: occasionally, heavy Drug use: cocaine - Family History Brother Hx Family Endocrine Disorder: Yes (DM) Medications and Allergies Aspirin 81 mg PO DAILY 04/29/16 [History] Atorvastatin [Lipitor] 40 mg PO HS 04/29/16 [History] Insulin ASPART [NovoLOG] 17 unit SQ TID 04/29/16 [History] Insulin Glargine [Lantus] 48 unit SQ BID 04/29/16 [History] Cholecalciferol (D-3) [Vitamin D] 2,000 unit PO DAILY 10/08/16 [History] Albuterol Sulfate [Albuterol Inhaler] 2 puff IH QID PRN 01/17/17 [History] Ascorbic Acid [Vitamin C] 250 mg PO DAILY 01/17/17 [History] Ferrous Sulfate [Iron] 325 mg PO BID 01/17/17 [History] Gabapentin [Neurontin] 800 mg PO BID 07/07/17 [History] OxyCODONE/APAP 10/325 [Percocet 10/325 MG] 1 tab PO Q8HR PRN 07/07/17 [History] Multivitamin [One Daily Essential] 1 tab PO DAILY 01/12/18 [History] Torsemide [Demadex] 20 mg PO BID 01/12/18 [History] Trazodone HCl 100 mg PO HS 01/12/18 [History] hydrALAZINE [HydrALAZINE] 10 mg PO BID 01/12/18 [History] 3 Allergy/AdvReac Type Severity Reaction Status Date / Time No Known Allergies Allergy Verified 07/07/17 08:37 Review of Systems All Systems review (narrative): The rest of the systems (10) were negative Constitutional: fatigue (denies) Cardiovascular: chest pain (denies at present but did have), leg edema (admits) Respiratory: cough (denies), dyspnea (denies at present but did have) Exam - Vital Signs Vital signs: Initial Vital Signs Temp Pulse Resp BP Pulse Ox 98.4 F 78 18 153/58 98 01/12/18 14:39 01/12/18 14:39 01/12/18 14:39 01/12/18 14:39 01/12/18 14:39 Vital Signs - Last 8 Hours Temp Pulse Resp BP Pulse Ox 01/16/18 15:02 98.6 F 66 16 138/64 94 01/16/18 11:38 98.2 F 62 15 136/69 95 Intake and Output 01/16/18 01/16/18 01/16/18 07:59 15:59 23:59 Intake Total 840 / 840 Output Total 1100 / 1100 Balance -1100 / -1100 840 / 840 Intake: Oral 840 / 840 Output: Urine 1100 / 1100 Other: Meal Lunch Percent of Meal Consumed 100% Weight 218.8 kg Blood Glucose* 244 109 Patient Weight 01/16/18 23:59 Weight 218.8 kg - General Appearance General appearance: well-developed, well-nourished, obese EENT: ATNC, mucous membranes moist Neck: no JVD, supple Additional Comments: decreased BS bases bilateral Cardiology: edema (LE bilat 3-4+) Gastrointestinal: no tenderness, no guarding, obese Integumentary: warm and dry, chronic venous stasis (LE bilat) Neurologic: no focal deficit Musculoskeletal: no deformities Psychiatric: mood/affect appropriate, cooperative Results - Lab Results 01/16/18 04:47 01/16/18 04:47 Most recent lab results Calcium 8.4 mg/dL (8.6-10.3) L 01/16/18 04:47 Magnesium 1.8 mg/dL (1.6-2.6) 01/13/18 02:29 Consult Discharge Plan - Plan [facility]errals: [facility] Provider[facility] - 01/26/18 10:00 am
[2018-01-16] MEDS: traZODone 50 MG TABLET PO SCH (21:16)
[2018-01-16] MEDS: Furosemide 20 MG/2 ML VIAL IVP SCH (21:17)
[2018-01-17 00:51] LABS: Bilirubin,Urine Negative (Negative); Blood,Urine Negative (Negative); Clarity,Urine Clear (Clear); Color,Urine Yellow (Yellow); Glucose,Urine (UA) >=1000 mg/dL (Normal); Ketones,Urine Negative (Negative); Leukocyte Esterase,Urine Negative (Negative); Nitrite,Urine Negative (Negative); Protein,Urine Negative (Neg-Trace); Specific Gravity,Urine > 1.030 (1.010-1.025); Urobilinogen,Urine Normal (Normal)
[2018-01-17 01:14] LABS: Creatinine,Urine 33 mg/dL; Microalbumin,Urine < 7 mg/L; Sodium, Urine < 10.0 mEq/L
[2018-01-17] MEDS: *HR* Heparin 5,000 UNIT/ML VIAL SQ SCH ×2 (06:08→18:49)
[2018-01-17] MEDS ORDERED: Albumin 25% 25gram/100mL 25 GM/100 ML IV.SOLN IVPB SCH (08:00)
[2018-01-17] MEDS: *HR* OxyCODONE/APAP 10/325 TABLET PO PRN ×2 (08:02→16:30)
[2018-01-17] MEDS: Metoprolol XL (24 HR) Succ 25 MG TAB.ER.24H PO SCH (08:03)
[2018-01-17] MEDS: Cholecalciferol (D-3) 1,000 UNIT TABLET PO SCH (08:03)
[2018-01-17] MEDS: Multivit/Ca/Min/Fe/FA 1 TAB TABLET PO SCH (08:03)
[2018-01-17] MEDS: Isosorbide MONOnitrate (24 HR) 30 MG TAB.ER.24H PO SCH (08:03)
[2018-01-17] MEDS: Ascorbic Acid 500 MG TABLET PO SCH (08:03)
[2018-01-17] MEDS: Insulin LISPRO 300 UNITS/3 ML VIAL SQ SCH ×7 (08:03→21:32)
[2018-01-17] MEDS: Aspirin 81 MG TAB.CHEW PO SCH (08:03)
[2018-01-17] MEDS: Furosemide 20 MG/2 ML VIAL IVP SCH (08:03)
[2018-01-17] MEDS: Gabapentin 400 MG CAPSULE PO SCH ×2 (08:03→21:33)
[2018-01-17] MEDS: hydrALAZINE 10 MG TABLET PO SCH ×2 (08:03→21:33)
[2018-01-17 11:33] LABS: Basophils % 0.4 %; Eosinophils # 0.2 K/mcL (0.0-0.6); Eosinophils % 2.9 %; Hematocrit 28.4 % (37.5-50.1); Hemoglobin 8.4 g/dL (12.9-16.9); Immature Granulocytes % 0.7 % (0-4); Lymphocytes # 2.2 K/mcL (0.6-4.6); Lymphocytes % 29.8 %; Mean Corpuscular HGB Conc 29.6 g/dL (31.6-35.5); Mean Corpuscular Hemoglobin 24.4 pg (28.0-33.3); Mean Corpuscular Volume 82.6 fL (83.0-100.0); Mean Platelet Volume 10.6 fL (9.4-12.4); Monocytes # 0.7 K/mcL (0.0-1.3); Monocytes % 9.1 %; Neutrophils # 4.3 K/mcL (1.6-8.9); Platelet Count 206 K/mcL (140-400); Red Blood Count 3.44 M/mcL (4.19-5.50); Red Cell Distribution Width 14.3 % (11.5-14.5); Segmented Neutrophils % 57.1 %
[2018-01-17] MEDS: Insulin DETEMIR 100 UNIT/ML X5UNITS SQ SCH ×2 (11:33→21:32)
[2018-01-17] MEDS: Miconazole 2% ointment 114 GM TUBE TP SCH ×2 (11:34→21:29)
[2018-01-17 11:43] LABS: Calcium 8.8 mg/dL (8.6-10.3); Potassium 4.9 mEq/L (3.5-5.1)
[2018-01-17] MEDS ORDERED: Furosemide 20 MG/2 ML VIAL IVP ONE (12:36)
--- NOTE | 2018-01-17 12:37 | Internal Med Progress Note ---
Hospitalist Progress Note - Encounter Date of Encounter: 01/17/18 Time of Encounter: 12:35 - Subjective Interval History: No acute changes over night - Exam Vitals: Temp Pulse Resp BP Pulse Ox 98.0 F 62 18 108/66 97 01/17/18 12:17 01/17/18 12:17 01/17/18 12:17 01/17/18 12:17 01/17/18 12:17 Exam: PHYSICAL EXAMINATION: GENERAL: The patient is a morbidly obese male, in no distress; A&O x3 HEENT: Head is normocephalic and atraumatic. Extraocular muscles are intact. Pupils are equal, round, and reactive to light and accommodation NECK: Supple. No carotid bruits. No lymphadenopathy or thyromegaly. LUNGS: Clear/diminished to auscultation AP&L B/L throughout. HEART: Regular rate and rhythm, S1, S2, without murmurs, rubs or gallops. ABDOMEN: Soft, nontender, and nondistended. Positive bowel sounds. No hepatosplenomegaly was noted. EXTREMITIES: Without any cyanosis, clubbing, rash, lesions. B/L 2+ pitting edema stable, lymphedema BLE and BLE venous stasis SKIN: Multiple small pressure ulcers beneath pannis and in upper left inner thigh - Assessment and Plan (1) CHF (congestive heart failure) Current Visit: Yes Status: Acute Assessment and Plan: Patient presented with elevated BNP and bilateral lower extremity 2+ pitting edema 10/--BLE pitting edema persists, fine bibasilar rales per auscultation Continue IV diuretics, low sodium diet, 1500 mL fluid restriction and cardiac monitoring TTE with EF preserved, LV endocardium not well seen, wall motion unable to be determined due to body habitus. Mildly dilated LV, mild cLVH, RV not well seen due to body habitus. Mildly dilated RV, mild RV hypokinesis, mildly dilated LA and RA /-- BLE edema persists. Edema is multifactorial and chronic with CHF, venous insufficiency and lymphedema. Acute exacerbation of CHF in the setting of JETHRO. Improving with diuretics. D/W nephrology who agrees with continuing diuretics. Clinically improving, no dyspnea, without rales to auscultation. Wrap legs to assist with fluid removal. Getting albumin and lasix. Continue strict I&O and fluid restriction. Daily weight. -2650 fluid volume in 24 hours. Continue diuretics and albumin and plan to d/c Friday. Will need close monitoring of renal function while getting increased dose of diuretics. (2) Chest pain Current Visit: Yes Status: Acute Assessment and Plan: Presented with intermittent chest pain with exertion as well as dyspnea, diaphoresis and dizziness Ultimately risk factors for CAD including HTN, HLD, DM, morbid obesity. Has a family history of early cardiac demise ECG without ischemic changes, borderline troponin elevation 0.042 then negative in the setting of CKD and anemia With continued chest pain and patient's risk factors cardiology was consult Thank you for seeing in consultation; per cardiology there are no urgent need for inpatient transfer, continue to monitor. Continue ASA, statin add low-dose beta bebe and Imdur Patient unable to have further cardiac evaluation at this facility should evaluation and to be completed he will need to be transferred to [facility]; patient has declined transfer for further eval of chest pain He is to follow-up with cardiology for further evaluation upon discharge Continue telemetry 01/17--Continues to be chest pain free overnight and into today. No events on tele overnight. Remains hemodynamically stable. Continue tele. (3) CKD (chronic kidney disease) stage 3, GFR 30-59 ml/min Current Visit: No Status: Chronic Assessment and Plan: History of CKD 3 Baseline creatinine variable around 1.9-2.0 SS CR worsening today; acute on chronic kidney injury secondary to overdiuresis with IV diuretics Reports that he is noncompliant and does not follow with nephrology closely We will continue to monitor closely Monitor intake and output daily weights Avoid Nephrotoxins Renal diet 01/17--JETHRO in CKD. Renal function stable. Nephrology following, agrees with continue diuretic use in the setting of CHF. Also getting albumin. UOP adequate -2650 in 24 hours, avoid nephrotoxins closely monitor renal function (4) CHANELL (obstructive sleep apnea) Current Visit: No Status: Chronic Assessment and Plan: her history Continue with CPAP at night (5) Anemia Current Visit: Yes Status: Acute Assessment and Plan: Chronic anemia in the setting of renal disease; 01/16 stable Hemoglobin ranges 7-8; has followed nephrology in the past for anemia No obvious S SX of bleeding Continue to closely monitor Recheck labs in the morning (6) [id number] kidney injury Current Visit: Yes Status: Acute Assessment and Plan: As above (7) Declining functional status Current Visit: Yes Status: Acute Assessment and Plan: PT/OT continue to work with patient throughout stay; recommend SNF at discharge , social worker health services and nurse navigator working [facility] 01/17--Approved at [facility] at the [facility] in [place], [place]; plan is to discharge Friday after receiving additional diuresis and albumin to help promote additional fluid loss prior to DC. (8) Hyperkalemia Current Visit: Yes Status: Resolved Assessment and Plan: hyperkalemia during this stay resolved continue diuretics to assist in lowering potassium (9) DVT prophylaxis Current Visit: Yes Status: Acute Assessment and Plan: SQ Heparin - Time Spent with Patient Total time spent is greater than 50% in coordination of care (as documented) at patient's floor/unit and/or counseling patient: less than 15 minutes Plan of Care Discussed with: patient Internal Medicine: Result - Labs CBC & Chem 7: 01/17/18 11:12 01/17/18 11:12 Labs: Short CBC 01/17/18 Range/Units 11:12 WBC 7.5 (4.3-11.1) K/mcL Hgb 8.4 L (12.9-16.9) g/dL Hct 28.4 L (37.5-50.1) % Plt Count 206 (140-400) K/mcL Neutrophils # 4.3 (1.6-8.9) K/mcL BMP 01/17/18 11:12 Sodium 142 Potassium 4.9 Chloride 109 H Carbon Dioxide 26 BUN 54 H Creatinine 2.80 H Glucose 139 H Calcium 8.8 Urine 01/17/18 Range/Units 00:36 Urine Color Yellow (Yellow) Urine Clarity Clear (Clear) Urine pH 5.0 (5.0-8.0) pH Units Ur Specific [place] > 1.030 H (1.010-1.025) Urine Protein Negative (Neg-Trace) mg/dL Urine Glucose (UA) >=1000 H (Normal) mg/dL - ABG Interpretation ABG results: PT/INR, D-dimer PT 12.5 Seconds (9.4-12.1) H 01/12/18 14:57 Consult Discharge Plan - Plan [facility]: [facility] [Primary Care Provider[facility] - 01/26/18 10:00 am (1) CHF (congestive heart failure) Qualifiers: Heart failure type: unspecified Heart failure chronicity: unspecified Qualified Code(s): I50.9 - Heart failure, unspecified (2) Chest pain Qualifiers: Chest pain type: unspecified Qualified Code(s): R07.9 - Chest pain, unspecified (5) Anemia Qualifiers: Anemia type: unspecified type Qualified Code(s): D64.9 - Anemia, unspecified (6) Atcoj-ae-pyinyxv kidney injury Qualifiers: Acute renal failure type: unspecified Chronic kidney disease stage: stage 3 ( moderate) Qualified Code(s): N17.9 - Acute kidney failure, unspecified; N18.3 - Chronic kidney disease, stage 3 (moderate)
[2018-01-17] MEDS: Albumin 25% 25gram/100mL 25 GM/100 ML IV.SOLN IVPB SCH (18:48)
[2018-01-17] MEDS: traZODone 50 MG TABLET PO SCH (21:33)
[2018-01-17] MEDS: Furosemide 40 MG/4 ML VIAL IVP SCH (21:33)
[2018-01-18] MEDS: *HR* Heparin 5,000 UNIT/ML VIAL SQ SCH (05:37)
[2018-01-18] MEDS: hydrALAZINE 10 MG TABLET PO SCH (08:52)
[2018-01-18] MEDS: *HR* OxyCODONE/APAP 10/325 TABLET PO PRN (08:52)
[2018-01-18] MEDS: Multivit/Ca/Min/Fe/FA 1 TAB TABLET PO SCH (08:52)
[2018-01-18] MEDS: Metoprolol XL (24 HR) Succ 25 MG TAB.ER.24H PO SCH (08:52)
[2018-01-18] MEDS: Ascorbic Acid 500 MG TABLET PO SCH (08:52)
[2018-01-18] MEDS: Cholecalciferol (D-3) 1,000 UNIT TABLET PO SCH (08:52)
[2018-01-18] MEDS: Isosorbide MONOnitrate (24 HR) 30 MG TAB.ER.24H PO SCH (08:52)
[2018-01-18] MEDS: Insulin LISPRO 300 UNITS/3 ML VIAL SQ SCH ×4 (08:53→13:14)
[2018-01-18] MEDS: Insulin DETEMIR 100 UNIT/ML X5UNITS SQ SCH (08:53)
[2018-01-18] MEDS: Aspirin 81 MG TAB.CHEW PO SCH (08:53)
[2018-01-18] MEDS: Albumin 25% 25gram/100mL 25 GM/100 ML IV.SOLN IVPB SCH (08:54)
[2018-01-18] MEDS: Gabapentin 400 MG CAPSULE PO SCH (08:59)
[2018-01-18] MEDS: Furosemide 40 MG/4 ML VIAL IVP SCH (08:59)
[2018-01-18 09:05] LABS: Calcium 8.8 mg/dL (8.6-10.3); Potassium 4.8 mEq/L (3.5-5.1)
[2018-01-18] MEDS: Miconazole 2% ointment 114 GM TUBE TP SCH (10:56)
--- NOTE | 2018-01-18 11:36 | Discharge Summary ---
- NOTES TO OUTPATIENT PROVIDER Notes to Outpatient Provider: History of CKD. Please closely monitor renal function. Orders not resulted at time of discharge: Pending orders 01/19/18 04:00 BMP [Basic Metabolic Panel] AM 0400 Date of Encounter: 01/18/18 Time of Encounter: 11:34 - Discharge Diagnosis (1) CHF (congestive heart failure) Priority: Primary Status: Acute Assessment and Plan: Patient presented with elevated BNP and bilateral lower extremity 2+ pitting edema 01/13--BLE pitting edema persists, fine bibasilar rales per auscultation Continue IV diuretics, low sodium diet, 1500 mL fluid restriction and cardiac monitoring TTE with EF preserved, LV endocardium not well seen, wall motion unable to be determined due to body habitus. Mildly dilated LV, mild cLVH, RV not well seen due to body habitus. Mildly dilated RV, mild RV hypokinesis, mildly dilated LA and RA 01/18--BLE edema persists, this is multifactorial with CHF, venous insufficiency and lymphedema. Upon arrival the patient had 2-3+ pitting edema throughout and this did improve with diuretics. His case was D/W nephrology who agrees that this is likely multifactorial and recommends continuing diuretics as well as PALLAVI wraps daily to assist with fluid removal. Throughout stay he did receive multiple doses of albumin with Lasix and swelling did continue to improve. Continue oral Lasix at discharge. On day of discharge patient remains hemodynamically stable and chest pain-free and without dyspnea. Lungs are clear to auscultation throughout. Again BLE edema has improved overnight. Continue to closely monitor. Qualifiers: Heart failure type: unspecified Heart failure chronicity: unspecified Qualified Code(s): I50.9 - Heart failure, unspecified (2) Chest pain Priority: Secondary Status: Resolved Assessment and Plan: Presented with intermittent chest pain with exertion as well as dyspnea, diaphoresis and dizziness Ultimately risk factors for CAD including HTN, HLD, DM, morbid obesity. Has a family history of early cardiac demise ECG without ischemic changes, borderline troponin elevation 0.042 then negative in the setting of CKD and anemia With continued chest pain and patient's risk factors cardiology was consult Thank you for seeing in consultation; per cardiology there are no urgent need for inpatient transfer, continue to monitor. Continue ASA, statin add low-dose beta bebe and Imdur Patient unable to have further cardiac evaluation at this facility should evaluation and to be completed he will need to be transferred to [facility]; patient has declined transfer for further eval of chest pain He is to follow-up with cardiology for further evaluation upon discharge Continue telemetry 01/17--Continues to be chest pain free overnight and into today. No events on tele overnight. Remains hemodynamically stable. Continue tele. 01/18--remains chest pain-free. No events on telemetry overnight. Throughout stay, he has declined further evaluation for chest pain on admission. Should chest pain returned consider transferring to a tertiary facility for further evaluation. Qualifiers: Chest pain type: unspecified Qualified Code(s): R07.9 - Chest pain, unspecified (3) CKD (chronic kidney disease) stage 3, GFR 30-59 ml/min Priority: Secondary Status: Chronic Assessment and Plan: History of CKD 3 Baseline creatinine variable around 1.9-2.0 SS CR worsening today; acute on chronic kidney injury secondary to overdiuresis with IV diuretics Reports that he is noncompliant and does not follow with nephrology closely We will continue to monitor closely Monitor intake and output daily weights Avoid Nephrotoxins Renal diet 01/18--JETHRO in CKD. Renal function remains stable, slightly improved overnight. His case was D/W nephrology was sitting in consultation and agrees with continuing diuretic use in the setting of CKD. Patient is not believed to have an JETHRO however instead is thought that this may be his new baseline renal function. The patient admits to being very noncompliant with his self-care and healthcare regimens and states he has not seen a civil celebrant for an unknown amount of years. UOP has remained adequate overnight. He is being discharged to an SNF in [facility] [place] [facility]. (4) CHANELL (obstructive sleep apnea) Priority: Secondary Status: Chronic Assessment and Plan: Will need BiPAP set up at SNF (5) Anemia Priority: Secondary Status: Acute Assessment and Plan: chronic, stable, no s/sx of bleeding, likely 2/2 CKD Qualifiers: Anemia type: unspecified type Qualified Code(s): D64.9 - Anemia, unspecified (6) Kjkna-gi-fgedddt kidney injury Priority: Secondary Status: Acute Assessment and Plan: As above Qualifiers: Acute renal failure type: unspecified Chronic kidney disease stage: stage 3 (moderate) Qualified Code(s): N17.9 - Acute kidney failure, unspecified; N18.3 - Chronic kidney disease, stage 3 (moderate) (7) Declining functional status Priority: Secondary Status: Acute (8) Hyperkalemia Priority: Secondary Status: Resolved (9) DVT prophylaxis Priority: Secondary Status: Acute Hospital course: Mr. Mccoy is a 62 year old male who presented with intermittent chest pain with exertion as well as dyspnea and diaphoresis and dizziness. Multiple risk factors including HTN, HLD, DM, morbid obesity and family history of early cardiac demise. ACS workup implemented per facilities capabilities. However, due to poor body habitus additional workup unable to be completed. Patient was offered transfer to tertiary facility for full workup however he declined. Throughout our workup here at [facility] his ECG was found to be without ischemic changes, borderline troponin elevation of 0.042 with a negative thereafter. This could also be seen in the setting of CKD and anemia however, must be noted that again the patient did ultimately declined transfer to a tertiary facility for further evaluation of chest pain. Cardiology recommends outpatient follow- up at tertiary facility for ischemic evaluation, either [facility] or a facility in [place]. Cardiology see in consultation while inpatient and recommends starting a low-dose beta bebe as well as Imdur to add to current regimen of aspirin and statin. Chest pain subsided with addition of Imdur and did not return throughout stay. Patient has remained hemodynamically stable without any problems throughout hospital course. Additionally, he was found to have some congestive heart failure with 3+ pitting bilateral lower extremity edema. Edema likely multifactorial with CHF, venous insufficiency and chronic lymphedema. He was treated with diuretics and BLE edema did somewhat improve. He does have a history of CKD, baseline unclear as the patient is noncompliant with follow-up with civil celebrant. There is some concern as to whether or not diuretics cause an acute kidney injury throughout stay. Nephrology was consult at and recommended continuing diuretics as well as PALLAVI bandage wrapping to decrease BLE swelling. Additionally, nephrology reports that renal function is likely at his new baseline. He will need closer follow-up with civil celebrant in the outpatient setting. ECF to closely monitor renal function, and ensure outpatient nephrology follow-up. The patient was assessed throughout stay and felt functional decline and determined that he is unable to provide care for himself will benefit from SNF placement. He will discharged this afternoon to [facility] for SNF placement to the [facility] the [place]. Discharge discussed with: patient, nurse, social work, case management, applications sales consultant - Time Spent with Patient Total time spent providing and/or coordinating discharge services: Less than 30 minutes - Discharge Medications Prescriptions: Nitroglycerin 0.4 mg SL Q5MIN PRN 30 Days #30 tab.subl PRN Reason: Chest Pain OxyCODONE/APAP 10/325 [Percocet 10/325 MG] 1 tab PO Q8HR PRN 3 Days #9 tablet PRN Reason: Pain Isosorbide MONOnitrate (24 HR) [Imdur] 60 mg PO DAILY 30 Days #60 tab.er.24h Metoprolol XL (24 HR) Succ [Toprol Xl] 25 mg PO DAILY 30 Days #30 tab.er.24h Home Medications: Aspirin 81 mg PO DAILY 04/29/16 [History] Atorvastatin [Lipitor] 40 mg PO HS 04/29/16 [History] Insulin ASPART [NovoLOG] 17 unit SQ TID 04/29/16 [History] Insulin Glargine [Lantus] 48 unit SQ BID 04/29/16 [History] Cholecalciferol (D-3) [Vitamin D] 2,000 unit PO DAILY 10/08/16 [History] Albuterol Sulfate [Albuterol Inhaler] 2 puff IH QID PRN 01/17/17 [History] Ascorbic Acid [Vitamin C] 250 mg PO DAILY 01/17/17 [History] Ferrous Sulfate [Iron] 325 mg PO BID 01/17/17 [History] Gabapentin [Neurontin] 800 mg PO BID 07/07/17 [History] Multivitamin [One Daily Essential] 1 tab PO DAILY 01/12/18 [History] Torsemide [Demadex] 20 mg PO BID 01/12/18 [History] Trazodone HCl 100 mg PO HS 01/12/18 [History] hydrALAZINE [HydrALAZINE] 10 mg PO BID 01/12/18 [History] Isosorbide MONOnitrate (24 HR) [Imdur] 60 mg PO DAILY 30 Days #60 tab.er.24h 10/29 [Rx] Metoprolol XL (24 HR) Succ [Toprol Xl] 25 mg PO DAILY 30 Days #30 tab.er.24h 10/29 [Rx] Nitroglycerin 0.4 mg SL Q5MIN PRN 30 Days #30 tab.subl 01/18/18 [Rx] OxyCODONE/APAP 10/325 [Percocet 10/325 MG] 1 tab PO Q8HR PRN 3 Days #9 tablet [Rx] Allergies/Adverse Reactions: 3 Allergy/AdvReac Type Severity Reaction Status Date / Time No Known Allergies Allergy Verified 07/07/17 08:37 Date of admission: 01/12/18 16:09 [facility] care physician: [facility] Consults: 01/12/18 17:58 Consult to Occupational Therapy [CONS] Routine Comment: Evaluate, develop and implement POC Reason for Consult: Weakness Does patient have active BEDREST order?: No Is patient medically & hemodynamically stable?: Yes Patient assessed for mobility or mobilized this visit?: No Consult to Physical Therapy [CONS] Routine Comment: Evaluate, develop and implement POC Reason for Consult: Weakness Does patient have active BEDREST order?: No Is patient medically & hemodynamically stable?: Yes Patient assessed for mobility or mobilized this visit?: No 01/14/18 17:20 Consult to Wound Care [CONS] Routine Reason for Consult: multiple abominal wounds, left inner thigh wound with yellow drainage. pt is diabetic. Call Completed: Yes 01/15/18 15:12 Consult to Nephrology [CONS] Routine Consulting Provider: Kidney Yary/ADALID/LIU/AURE Reason for Consult: H/O CKD. Worsening renal function and hyperkalemia Time Notified: 15:13 Call Completed: Yes Discharging clinician: Dinesh Polanco Anticipated date of discharge: 01/18/18 - Constitutional Vitals: Temp Pulse Resp BP Pulse Ox 97.9 F 59 17 143/81 98 01/18/18 07:18 01/18/18 07:18 01/18/18 07:18 01/18/18 07:18 01/18/18 07:18 General appearance: Present: A&O X 3, morbidly obese Exam: PHYSICAL EXAMINATION: GENERAL: The patient is a morbidly obese male, in no distress; A&O x3 HEENT: Head is normocephalic and atraumatic. Extraocular muscles are intact. Pupils are equal, round, and reactive to light and accommodation NECK: Supple. No carotid bruits. No lymphadenopathy or thyromegaly. LUNGS: Clear/diminished to auscultation AP&L B/L throughout. HEART: Regular rate and rhythm, S1, S2, without murmurs, rubs or gallops. ABDOMEN: Soft, nontender, and nondistended. Positive bowel sounds. No hepatosplenomegaly was noted. EXTREMITIES: Without any cyanosis, clubbing, rash, lesions. B/L 2+ pitting edema stable and slightly improved overnight, lymphedema BLE and BLE venous stasis SKIN: Multiple small pressure ulcers beneath pannis and in upper left inner thigh - Patient Status Disposition: Transfer SNF Condition: Fair Functional capacity at discharge: uses cane/walker Overall status at discharge: patient is progressing back to baseline - Discharge Instructions [facility] With: [facility]Primary Care Provider[facility] - 01/26/18 10:00 am Forms: ED Satisfaction Letter - Diet and Activity Activity: as per physical therapy, increase activity as tolerated, resume usual activities as tolerated Diet: diabetic diet, low fat, low cholesterol, low salt diet, other (Renal)
[2018-01-18 11:39] VITALS: BP 145/76
--- NOTE | 2018-01-18 11:57 | Physician Discharge Referral ---
ExtendedCare Referral Info Transfer To: [facility] the [facility] Provider in Charge: Facility provider Provider in Charge after Transfer: PCP Institutional Level of Care: Skilled - Diagnosis (1) CHF (congestive heart failure) Priority: Primary Status: Acute (2) Chest pain Priority: Secondary Status: Resolved (3) CKD (chronic kidney disease) stage 3, GFR 30-59 ml/min Priority: Secondary Status: Chronic (4) CHANELL (obstructive sleep apnea) Priority: Secondary Status: Chronic (5) Anemia Priority: Secondary Status: Acute (6) Tdzuy-ux-gvyamij kidney injury Priority: Secondary Status: Acute (7) Declining functional status Priority: Secondary Status: Acute (8) Hyperkalemia Priority: Secondary Status: Resolved (9) DVT prophylaxis Priority: Secondary Status: Acute Prognosis: Fair Aware of Diagnosis: Patient Aware of Prognosis: Patient - Transfer Medications Prescriptions: Nitroglycerin 0.4 mg SL Q5MIN PRN 30 Days #30 tab.subl PRN Reason: Chest Pain OxyCODONE/APAP 10/325 [Percocet 10/325 MG] 1 tab PO Q8HR PRN 3 Days #9 tablet PRN Reason: Pain Isosorbide MONOnitrate (24 HR) [Imdur] 60 mg PO DAILY 30 Days #60 tab.er.24h Metoprolol XL (24 HR) Succ [Toprol Xl] 25 mg PO DAILY 30 Days #30 tab.er.24h Home Medications: Aspirin 81 mg PO DAILY 04/29/16 [History] Atorvastatin [Lipitor] 40 mg PO HS 04/29/16 [History] Insulin ASPART [NovoLOG] 17 unit SQ TID 04/29/16 [History] Insulin Glargine [Lantus] 48 unit SQ BID 04/29/16 [History] Cholecalciferol (D-3) [Vitamin D] 2,000 unit PO DAILY 10/08/16 [History] Albuterol Sulfate [Albuterol Inhaler] 2 puff IH QID PRN 01/17/17 [History] Ascorbic Acid [Vitamin C] 250 mg PO DAILY 01/17/17 [History] Ferrous Sulfate [Iron] 325 mg PO BID 01/17/17 [History] Gabapentin [Neurontin] 800 mg PO BID 07/07/17 [History] Multivitamin [One Daily Essential] 1 tab PO DAILY 01/12/18 [History] Torsemide [Demadex] 20 mg PO BID 01/12/18 [History] Trazodone HCl 100 mg PO HS 01/12/18 [History] hydrALAZINE [HydrALAZINE] 10 mg PO BID 01/12/18 [History] Isosorbide MONOnitrate (24 HR) [Imdur] 60 mg PO DAILY 30 Days #60 tab.er.24h 10/29 [Rx] Metoprolol XL (24 HR) Succ [Toprol Xl] 25 mg PO DAILY 30 Days #30 tab.er.24h 10/29 [Rx] Nitroglycerin 0.4 mg SL Q5MIN PRN 30 Days #30 tab.subl 01/18/18 [Rx] OxyCODONE/APAP 10/325 [Percocet 10/325 MG] 1 tab PO Q8HR PRN 3 Days #9 tablet [Rx] Allergies/Adverse Reactions: 3 Allergy/AdvReac Type Severity Reaction Status Date / Time No Known Allergies Allergy Verified 07/07/17 08:37 - Respiratory Orders Smoking Cessation: Smoking cessation has been advised. For more information, call the [place] Tobacco Quit Line at 6-504-LFKN-NOW. - Ancillary Orders May use pressure relief devices daily prn - Advance Directives Code Status: Full Code - Mobility Orders Ambulate - Rehabiliation Orders Rehab Potential: Fair Rehab Orders: ROM Exercises, Evaluation for Physical Therapy, Evaluation for Occupational Therapy - Treatments List/Other: Will need a 1.5L fluid restriction daily - Diet Orders No Added Salt (JANELLE), No Concentrated Sweets, Renal (Fluid restriction 1.5 liters dayly), Cardiac CERTIFICATION: I certify that the transfer of the above named patient to an Extended Care Facility is necessary for the continuing treatment of the diagnosis listed. The above information is true and accurate reflection of patient's current condition. Confidential - Redisclosure prohibited without a patient's written consent.
--- NOTE | 2018-01-18 14:27 | Nephrology Progress Note ---
Date of Encounter: 01/17/18 Time of Encounter: 14:00 - Assessment and Plan (1) JETHRO (acute kidney injury) Current Visit: No Status: Acute SCr improving slightly at 2.8, GFR 28, will monitor UOP noted at 1650cc in the past 24hrs but already improved at 2075cc after albumin Continue albumin/lasix combo for now seems to be helping renal fxn and diuresis Continue to avoid nephrotoxins if possible urine studies results noted (2) Hyperkalemia Current Visit: Yes Status: Resolved Potassium noted improved at 4.9, continue renal diet Diuretics is helping (3) Anemia Current Visit: No Status: Chronic Hgb noted at 8.4 slightly better, has a chronic history. will monitor Qualifiers: Anemia type: iron deficiency Iron deficiency anemia type: unspecified iron deficiency Qualified Code(s): D50.9 - Iron deficiency anemia, unspecified (4) CKD (chronic kidney disease) stage 3, GFR 30-59 ml/min Current Visit: No Status: Chronic Baseline GFR around 40 (5) CHF (congestive heart failure) Current Visit: Yes Status: Acute LE edema appears to have a chronic component vs lymphedema and might benefit from LE wrapping Continue fluid restriction Continue diuretics with albumin Qualifiers: Heart failure type: unspecified Heart failure chronicity: unspecified Qualified Code(s): I50.9 - Heart failure, unspecified Subjective Interval history: Pt seen and examined feeling better. Discharge cancelled yesterday due to issues transporting to ECF. Pt reports feeling better with improved UOP overnight ad today. Objective - Vital Signs Vital signs: Intake and Output 01/17/18 01/18/18 01/18/18 23:59 07:59 15:59 Intake Total 120 / 240 Output Total 100 / 700 Balance 20 / -460 Intake: Oral 120 / 240 Output: Urine 100 / 700 Other: Meal Lunch Percent of Meal Consumed 100% Stool Size Moderate Stool Consistency formed Stool Color Brown - General Appearance General appearance: Present: obese (NAD) EENT: Present: ATNC, mucous membranes moist Neck: Present: no JVD, supple Additional Comments: decreased BS bases bilat Cardiology: Present: edema (LE bilat 3+), normal S1, normal S2 Gastrointestinal: Present: no tenderness, no guarding, obese Integumentary: Present: warm and dry, chronic venous stasis Neurologic: Present: no focal deficit Musculoskeletal: Present: no deformities Psychiatric: Present: mood/affect appropriate, cooperative - Lab 01/17/18 11:12 01/18/18 08:27 Most recent lab results Calcium 8.8 mg/dL (8.6-10.3) 01/18/18 08:27 Magnesium 1.8 mg/dL (1.6-2.6) 01/13/18 02:29 Urine Creatinine 33 mg/dL 01/17/18 00:36 Urine Sodium < 10.0 mEq/L 01/17/18 00:36 Urine Total Protein < 4 mg/dL (1-14) 01/17/18 00:36 Consult Discharge Plan - Plan [facility]errals: [facility] [Primary Care Provider] - 01/26/18 10:00 am
== END 2018-01-18 15:32 | DRG 194 ==
LOC: 3BNU 14:34 → EMEROOARM 14:34 → 3BNU 17:05
PROVIDERS: ADMIT Family Medicine; ATTEND Family Medicine